=== PATIENT | male | born 1940 | race Caucasian/White ===

== ENCOUNTER → 2019-03-30 08:53 | Outpatient (CLI) | payer MEDICARE, OTHER, SELFPAY ==
--- NOTE | 2019-03-30 | DI.US.S_ITS ---
PROCEDURE: US RETROPERITONEAL COMP INDICATIONS: AORTIC ANEURYSM TECHNIQUE: Real-time scanning was performed of the retroperitoneal organs, with image documentation. COMPARISON: [facility], RG, CT ANGIO RUNOFF ABD START, 11/24/2016, 10:13. FINDINGS: Aorta: Proximal aorta measures 2.2 cm, mid aorta 1.9 cm and the distal aorta 4.3 x 4.5 cm. Moderate amount intraluminal thrombus present. Iliac arteries: Well-visualized. IMPRESSION: 4.3 x 4.5 cm distal abdominal aortic aneurysm which appears similar to prior CT scan dated 11/24/16. Dictated by: Franko Cabrera [facility] Interpreted: Aditya James MD on 03/30/2019 at 14:06 Approved by: Aditya James M.D. on 04/02/2019 at 13:34
== END ==
PROVIDERS: PCP Family Medicine; Visit Provider Family Medicine
DX: I71.9 Aortic aneurysm of unspecified site, without rupture (principal)
CPT/HCPCS: 76770

== ENCOUNTER → 2019-09-24 13:26 | Outpatient (CLI) | payer MEDICARE, OTHER, SELFPAY ==
--- NOTE | 2019-09-24 | DI.US.S_ITS ---
PROCEDURE: US RETRO PERITONEAL LIMITED INDICATIONS: ANEURYSM OF ILIAC ARTERY TECHNIQUE: Real-time scanning was performed of the retroperitoneal organs, with image documentation. COMPARISON: [facility], , US RETROPERITONEAL COMP, 03/30/2019, 9:14. [facility], RG, CT ANGIO RUNOFF ABD START, 11/24/2016, 10:13. [facility], US, ARTERIAL LOW.EXTREM.BILATERAL, 10/20/2016, 9:05. [facility], , PERIPH.ONEAL EXT BILAT, 10/18/2016, 12:17. FINDINGS: The imaged proximal abdominal aorta measures 1.7 x 2.0 cm. The imaged mid abdominal aorta measures 2.2 x 2.2 cm. The imaged distal abdominal aorta measures approximately 4.5 x 4.1 cm. The outer lumen of the imaged distal abdominal aorta measures 4.5 x 4.1 cm (previously 4.5 x 4.3 cm on comparison exam of 03/30/19) while the inner lumen of the imaged distal abdominal aorta measures approximately 2.3 x 2.2 cm. The left proximal common iliac artery measures approximately 0.8 cm in greatest diameter. The right proximal common iliac artery cannot be visualized on this exam and appears obscured by overlying bowel gas. Within the mid-right kidney there is a 4.5 x 4.0 x 4.4 cm oval circumscribed hypodense cyst with posterior acoustic enhancement, low level internal echogenic foci, no vascularity on Doppler imaging. IMPRESSION: 1. Redemonstrated distal abdominal aortic aneurysm measuring 4.5 x 4.1 cm, containing findings suggestive of intramural thrombus/wall thickening. 2. 4.5 cm probable complicated cyst within the right kidney. A followup targeted ultrasound in 3-6 months to demonstrate stability is recommended. Dictated by: Sarkis Vazquez M.D. on 09/24/2019 at 15:19 Approved by: Sarkis Vazquez M.D. on 09/24/2019 at 15:39
== END ==
PROVIDERS: PCP Family Medicine; Visit Provider Physician Assistant
DX: I71.4 Abdominal aortic aneurysm, without rupture (principal)
CPT/HCPCS: 76775

== ENCOUNTER 2020-07-10 13:28 | Emergency (ER) | payer MEDICARE, OTHER, SELFPAY ==
[2020-07-10] VITALS (9 sets, daily range): BP systolic 103–121; BP diastolic 53–59; PULSE 52–72; RESP 14–24; TEMP 36.7; O2SAT 97–100; BMI 29.2
--- NOTE | 2020-07-10 13:46 | DI.RAD.S_ITS ---
PROCEDURE: XR CHEST 1V INDICATIONS: chest pain COPDv/Pneumonia v/cardiac TECHNIQUE: One view of the chest was acquired. COMPARISON: [facility], RG, CT ANGIO RUNOFF ABD START, 11/24/2016, 10:13. FINDINGS: Surgical changes and devices: None. Lungs and pleura: Lungs are clear. No pleural effusions or pneumothorax. Mediastinum: Mediastinal contours appear normal. Heart size is normal. Bones and chest wall: Age indeterminate right posterior 9th rib fracture is seen. Overlying soft tissues appear unremarkable. IMPRESSION: No acute cardiopulmonary pathology. Age indeterminate right posterior 9th rib fracture. Dictated by: Justin Salvador M.D. on 07/10/2020 at 14:16 Approved by: Justin Salvador M.D. on 07/10/2020 at 14:25
--- NOTE | 2020-07-10 13:51 | ED.CHESTPAIN ---
HPI - Chest Pain <Kristen Gatse PA-C - Last Filed: 07/11/20 11:14> General Chief Complaint: Chest Pain Stated Complaint: chest pain Time Seen by Provider: 07/10/20 13:36 Source: patient Mode of arrival: EMS Limitations: other (Dementia) History of Present Illness HPI narrative: This is 72-year-old gentleman with a history of hypertension, COPD and dementia who lives with his daughter, brought in by EMS after his daughter was concerned because he reported some chest pain this morning, per EMS he also had some shortness of breath he is on home oxygen normally at all times, he received Solu-Medrol 125 and a DuoNeb inhaler treatment and his breathing improved by EMS, per EMS report daughter noted that he may be slightly more confused than usual today. On presentation to the emergency department he is well-appearing, he states that he has a little bit of chest pain on the front left side of his chest and he notes that ?if you push on it it seems like it gets worse?. He also does state that he felt a little bit more generally weak than usual this morning. Patient is a poor historian, he reports no recent shortness of breath no recent changes to his health. He currently smokes 3 or 4 cigarettes a day at maximum. Denies fever, chills, cough, abdominal pain, diarrhea, nausea, vomiting, ongoing chest pain, dysuria, one sided weakness, headache, dizziness recent falls or any other symptoms. MD complaint: chest pain (And shortness of breath per EMS) Onset (ago): hour(s) (4) Duration: improved (No active shortness of breath, very mild chest pain currently) Pain location: left chest Severity: mild Severity scale (1-10): 2 Quality: aching Pain radiation: none Relieving factors: nothing Exacerbating factors: nothing Context: other (COPD) Associated symptoms: dyspnea (Now improved) Treatments prior to arrival chest pain: oxygen and other (Solu-Medrol, DuoNeb inhaler) Related Data Home Medications Medication Instructions Recorded Confirmed albuterol sulfate 2 puff INHALATION Q4-6H PRN 07/10/20 07/10/20 albuterol sulfate 2.5 mg INHALATION Q6H 07/10/20 07/10/20 aspirin 325 mg PO DAILY 07/10/20 07/10/20 atorvastatin 10 mg PO BEDTIME 07/10/20 07/10/20 diltiazem HCl [Cardizem CD] 180 mg PO DAILY 07/10/20 07/10/20 fluticasone propion-salmeterol 1 inh INHALATION BID 07/10/20 07/10/20 [Advair Diskus] ipratropium-albuterol [Combivent 1 puff INHALATION QID 07/10/20 07/10/20 Respimat] lisinopril 20 mg PO DAILY 07/10/20 07/10/20 prednisone 1 mg PO BID 07/10/20 07/10/20 Previous Rx's Medication Instructions Recorded cefpodoxime 100 mg PO BID #14 tab 07/10/20 prednisone 20 mg PO BID #10 tab 07/10/20 Allergies Allergy/AdvReac Type Severity Reaction Status Date / Time No Known Drug Allergies Allergy Verified 07/10/20 17:13 Review of Systems <Kristen Gates PA-C - Last Filed: 07/11/20 11:14> Review of Systems Narrative: GENERAL: Denies chills, fatigue, malaise, fever, sweats. HEENT: Denies sinus pain, ear pain, sore throat, difficulty swallowing, dizziness. RESPIRATORY: Denies dyspnea, cough, wheezing, hemoptysis, sputum. CARDIOVASCULAR: positive for chest pain (when he presses on it), negative for palpitations, orthopnea, edema, GASTROINTESTINAL: Denies nausea, vomiting, abdominal pain, diarrhea, constipation, melena. : Denies dysuria, frequency, incontinence, hematuria, urinary retention. MUSCULOSKELETAL: Positive for increased generalized weakness today negative for joint pain, or bony pain SKIN: Denies rash, skin lesions, or other NEUROLOGIC: Denies weakness, headache, numbness, change in speech, confusion, seizures, incoordination. PSYCHIATRIC: Patient has dementia No concerning psychosocial issues. 12 point review of systems is negative except for those stated above ROS Unobtainable: All systems reviewed & are unremarkable except as noted in HPI and below and Other (Patient has dementia, unkown if answers re: recent health accurate) Patient History <Kristen Gates PA-C - Last Filed: 07/11/20 11:14> Social History Smoking Status: Current every day smoker Exam <Kristen Gates PA-C - Last Filed: 07/11/20 11:14> Narrative Exam Narrative: GENERAL: 80 year old patient appears stated age. Well-nourished, well-developed patient, in mild distress. Patient is able to answer questions appropriately, no confusion/disorientation noted. HEAD: Atraumatic. Normocephalic. EYES: Pupils equal round and reactive. Extraocular motions intact. No scleral icterus. No injection or drainage. ENT: Nose without bleeding, purulent drainage. Throat without erythema, tonsillar hypertrophy or exudate. Airway patent. NECK: Trachea midline. Non tender CARDIOVASCULAR: Distant heart tones, Regular rate and rhythm without murmurs, gallops, or rubs. Patient exhibits very slight tenderness with palpation over his chest left mid clavicular approximately over rib 9/10--no deformity noted RESPIRATORY: There is mild wheezing all yao more prominent upper inspiratory and expiratory most notable expiratory. Breath sounds equal bilaterally. No rales, or rhonchi. GASTROINTESTINAL: Abdomen soft, non-tender, protuberant, nondistended. EXTREMITIES: No edema or joint tenderness. Distal pulses are strong and equal bilaterally BACK: Nontender without deformity or crepitance. No flank tenderness. NEURO: AOx3. SKIN: No rash or erythema of visible areas Initial Vital Signs Initial Vital Signs: Vital Signs Temperature 98.1 F 07/10/20 13:44 Pulse Rate 72 07/10/20 13:44 Respiratory Rate 14 07/10/20 13:44 Blood Pressure 121/59 L 07/10/20 13:44 Pulse Oximetry 97 07/10/20 13:44 <Delvis Mora DO - Last Filed: 07/11/20 11:41> Initial Vital Signs Initial Vital Signs: Vital Signs Temperature 98.1 F 07/10/20 13:44 Pulse Rate 72 07/10/20 13:44 Respiratory Rate 14 07/10/20 13:44 Blood Pressure 121/59 L 07/10/20 13:44 Pulse Oximetry 97 07/10/20 13:44 Scores <Kristen Gates PA-C - Last Filed: 07/11/20 11:14> GCS Outlook coma scale eye opening: Spontaneous Cristopher coma scale verbal response: Orientated Cristopher coma scale motor response: Obey commands Cristopher coma scale total score: 15 Course <Kristen Gates PA-C - Last Filed: 07/11/20 11:14> Course Course Narrative: Labs thus far are returning unremarkable, x-ray does show an age-indeterminate right 9th rib fracture, however this is not in the area of the patient's chest discomfort. Awaiting urine. 14:54 Patient does appear to have a UTI which would likely explain his feeling a little more weak recently today and his daughter's report of being a little bit more confused than usual. Attempting to find the daughter to discuss his symptoms with her. 15:09 Spoke with the daughter of the patient about his recent symptoms and what she saw today before he was brought in by ambulance. She notes this morning he slept in past 8:30 which is unusual for him and concerning in her mind. She had to leave for a while and came back around 1:00 pm. this afternoon when she walked in the door she says that he looked more pale than usual and he was sitting upright and wheezing. He seemed a little bit confused when he tried to tell her that he felt he was having some chest discomfort alternating between saying he was and he was not. She notes that his wheezing is something that he frequently has after he has smoked a cigarette, she feels that this was somewhat similar to that or as if he had been off of his oxygen for a little bit or been walking around, she does not think he has had any worsening problems with shortness of breath in the last few days has not complained of any chest pain or other symptoms in the last few days. She notes he has had COPD for some time, still smokes she says up to 8 cigarettes a day although she has him on lights. He does not have a survey engineer that he sees she is happy to bring him in for primary care follow-up and she is actually planning to work on changing his PCP. The patient continues to be pain free, in no respiratory distress, patient states that he feels very well and has no concerns, daughter is in agreement that he is his normal self. Plan to discharge with referral for pulmonology for better assessment of his COPD will also discharge with a 5 day course of steroid medication as I think it is likely he had a COPD exacerbation. I do not think that he warrants antibiotics. 15:45 Orders Ordered: Discontinued Medications Cefdinir (Omnicef) 300 mg PO NOW ONE Stop: 10/08/20 17:04 Last Admin: 07/10/20 17:14 Dose: 300 mg Documented by: JESS Prednisone (Deltasone) 20 mg PO NOW ONE Stop: 07/10/20 17:08 Last Admin: 07/10/20 17:14 Dose: 20 mg Documented by: JESS Vital Signs Vital signs: Vital Signs - 8 hr 07/10/20 15:30 07/10/20 16:00 07/10/20 16:30 Pulse Rate 54 L 55 L 55 L Respiratory Rate 21 17 Blood Pressure 114/59 L 108/53 L 111/55 L Pulse Oximetry 99 99 99 <Delvis Mora DO - Last Filed: 07/11/20 11:41> Orders Ordered: Discontinued Medications Cefdinir (Omnicef) 300 mg PO NOW ONE Stop: 07/10/20 17:04 Last Admin: 07/10/20 17:14 Dose: 300 mg Documented by: JESS Prednisone (Deltasone) 20 mg PO NOW ONE Stop: 07/10/20 17:08 Last Admin: 07/10/20 17:14 Dose: 20 mg Documented by: JESS Vital Signs Vital signs: Vital Signs - 8 hr 07/10/20 15:30 07/10/20 16:00 07/10/20 16:30 Pulse Rate 54 L 55 L 55 L Respiratory Rate 21 17 Blood Pressure 114/59 L 108/53 L 111/55 L Pulse Oximetry 99 99 99 MDM - Chest Pain <Kristen Gates PA-C - Last Filed: 07/11/20 11:14> Differential Diagnosis Differential diagnosis: Likely chest pain and other (Reproducible chest pain, COPD, UTI) Medical Records Data Attestation: I reviewed the patient's medical records. Lab Data Attestation: I reviewed the patient's lab results. Result diagrams: 07/10/20 14:04 07/10/20 14:04 Labs: Lab Results 07/10/20 07/10/20 07/10/20 Range/Units 14:04 14:04 14:04 WBC 6.9 (4.5-11.0) X10^3/uL RBC 3.65 L (4.5-5.9) X10^6/uL Hgb 11.1 L (13.5-17.5) g/dL Hct 34.4 L (41-53) % MCV 94.3 (80-100) fL MCH 30.3 (26-34) PG MCHC 32.2 (30-36) % RDW 15.4 H (11.6-14.8) % Plt Count 267 (150-400) X10^3/uL Neut % (Auto) 72.6 (50-75) % Lymph % (Auto) 17.6 L (25-40) % [place] % (Auto) 7.2 (3-14) % Eos % (Auto) 1.7 L (2-4) % Baso % (Auto) 0.9 (0-2) % Neut # (Auto) 5000 (4895-1933) /uL Lymph # (Auto) 1200 (3351-0096) /uL [place] # (Auto) 500 (0-900) /uL Eos # (Auto) 100 (0-450) /uL Baso # (Auto) 100 (0-100) /uL Sodium 140 (137-145) mmol/L Potassium 5.2 H (3.4-5.1) mmol/L Chloride 107 (98-107) mmol/L Carbon Dioxide 28 (22-32) mmol/L BUN 16 (9-20) mg/dL Creatinine 1.02 (0.66-1.25) mg/dL Estimated GFR > 60.0 (>60) mL/min BUN/Creatinine Ratio 15.7 (6-22) Glucose 88 (80-110) mg/dL Calcium 8.6 (8.4-10.2) mg/dL Total Bilirubin 0.4 (0.2-1.3) mg/dL AST 18 (17-59) IU/L ALT 11 (<50) IU/L Alkaline Phosphatase 88 (38-126) U/L Total Creatine Kinase 85 (55-170) U/L CK-MB (CK-2) TNP CK-MB (CK-2) Rel Index TNP Troponin I < 0.012 (0.01-0.034) ng/mL NT-Pro-B Natriuret Pep 143 (<450) pg/mL Total Protein 6.7 (6.3-8.2) g/dL Albumin 3.7 (3.5-5.0) g/dL Globulin 3.0 (1.7-4.1) g/dL Albumin/Globulin Ratio 1.2 (1.0-2.8) Lipase 83 (23-300) U/L Procalcitonin 0.05 (<0.5) ng/mL Urine Color Urine Appearance Urine pH (4.5-8.0) Ur Specific [place] (1.000-1.035) Urine Protein (Negative) Urine Glucose (UA) (Negative) g/dL Urine Ketones (NEGATIVE) Urine Occult Blood (Negative) Urine Nitrate (Negative) Urine Bilirubin (NEGATIVE) Urine Urobilinogen (0.2) E.U./dL Ur Leukocyte Esterase (NEGATIVE) Urine RBC (0-5/HPF) Urine WBC (0-5/HPF) Ur Squamous Epith Cells (0-5/HPF) Amorphous Sediment Urine Bacteria (None) Urine Mucus (Negative) Ur Culture Indicated? COVID-19 PCR (Negative) 07/10/20 07/10/20 Range/Units 14:10 14:45 WBC (4.5-11.0) X10^3/uL RBC (4.5-5.9) X10^6/uL Hgb (13.5-17.5) g/dL Hct (41-53) % MCV (80-100) fL MCH (26-34) PG MCHC (30-36) % RDW (11.6-14.8) % Plt Count (150-400) X10^3/uL Neut % (Auto) (50-75) % Lymph % (Auto) (25-40) % [place] % (Auto) (3-14) % Eos % (Auto) (2-4) % Baso % (Auto) (0-2) % Neut # (Auto) (2600-3293) /uL Lymph # (Auto) (8000-1226) /uL [place] # (Auto) (0-900) /uL Eos # (Auto) (0-450) /uL Baso # (Auto) (0-100) /uL Sodium (137-145) mmol/L Potassium (3.4-5.1) mmol/L Chloride (98-107) mmol/L Carbon Dioxide (22-32) mmol/L BUN (9-20) mg/dL Creatinine (0.66-1.25) mg/dL Estimated GFR (>60) mL/min BUN/Creatinine Ratio (6-22) Glucose (80-110) mg/dL Calcium (8.4-10.2) mg/dL Total Bilirubin (0.2-1.3) mg/dL AST (17-59) IU/L ALT (<50) IU/L Alkaline Phosphatase (38-126) U/L Total Creatine Kinase (55-170) U/L CK-MB (CK-2) CK-MB (CK-2) Rel Index Troponin I (0.01-0.034) ng/mL NT-Pro-B Natriuret Pep (<450) pg/mL Total Protein (6.3-8.2) g/dL Albumin (3.5-5.0) g/dL Globulin (1.7-4.1) g/dL Albumin/Globulin Ratio (1.0-2.8) Lipase (23-300) U/L Procalcitonin (<0.5) ng/mL Urine Color Yellow Urine Appearance Sl cloudy Urine pH 6.0 (4.5-8.0) Ur Specific [place] <=1.005 (1.000-1.035) Urine Protein Negative (Negative) Urine Glucose (UA) Negative (Negative) g/dL Urine Ketones Negative (NEGATIVE) Urine Occult Blood Trace-lysed (Negative) Urine Nitrate Negative (Negative) Urine Bilirubin Negative (NEGATIVE) Urine Urobilinogen 0.2 (0.2) E.U./dL Ur Leukocyte Esterase 3+ H (NEGATIVE) Urine RBC 0-1/hpf (0-5/HPF) Urine WBC 30-100/hpf H (0-5/HPF) Ur Squamous Epith Cells 0-1 /hpf (0-5/HPF) Amorphous Sediment 1+ Urine Bacteria Many (>30) H (None) Urine Mucus 1+ H (Negative) Ur Culture Indicated? Specimen cultured COVID-19 PCR Negative (Negative) Imaging Data Chest x-ray: Attestation: I personally reviewed and interpreted this imaging study as follows: Radiologist's Impression: [address] [address] XRay Report Signed Patient: Ramon Mosquera EMR#: [id number] : 2Acct:[id number] Age/Sex: 80 / MDate of Service: 07/10/20 Loc: ED Accession Number: [id number] Procedure: XR chest 1V Ordering Provider: Kristen Gates P.A-C PROCEDURE: XR CHEST 1V INDICATIONS: chest pain COPDv/Pneumonia v/cardiac TECHNIQUE: One view of the chest was acquired. COMPARISON: [facility], RG, CT ANGIO RUNOFF ABD START, 11/24/2016, 10:13. FINDINGS: Surgical changes and devices: None. Lungs and pleura: Lungs are clear. No pleural effusions or pneumothorax. Mediastinum: Mediastinal contours appear normal. Heart size is normal. Bones and chest wall: Age indeterminate right posterior 9th rib fracture is seen. Overlying soft tissues appear unremarkable. IMPRESSION: No acute cardiopulmonary pathology. Age indeterminate right posterior 9th rib fracture. Dictated by: Justin Salvador M.D. on 07/10/2020 at 14:16 Approved by: Justin Salvador M.D. on 07/10/2020 at 14:25 ECG Data Attestation: I personally reviewed and interpreted this ECG as follows: (EKG also reviewed by Dr. Mora) Prior ECG tracings: not available for review Interpretation: Sinus bradycardia with premature supraventricular earlier complexes, ventricular rate 59, p.r. interval 148 QRS 78 QT 394 P axis 77 are axis 34 T axis 55 Core Measures Measure exclusions: not indicated MDM Narrative Medical decision making narrative: This is a well-appearing 80-year-old gentleman with a history of COPD, dementia, hypertension who presents to the emergency department brought in by ambulance after his daughter found him complaining of possible chest pain and wheezing. Patient received Solu-Medrol and DuoNeb in the ambulance and by the time of arrival was in no respiratory distress. Patient is on chronic home O2 at 5 L. does not have a survey engineer, COPD is managed by his PCP. Is unclear to what degree the patient's respiratory distress that happened at home today was his ?normal? versus a possible manifestation of exacerbation of his COPD given that daughter felt his wheezing was similar to his normal after a cigarette or a walk. Labs returned largely unremarkable with exception of urinary tract infection present, did have a very slightly elevated potassium level--not warranting treatment with medication. Patient had a reproducible chest pain in the left lateral low chest. Possible that he has a muscle strain. Emergency return precautions provided, all questions answered. <Delvis Mora, DO - Last Filed: 07/11/20 11:41> Lab Data Labs: Lab Results 07/10/20 07/10/20 07/10/20 Range/Units 14:04 14:04 14:04 WBC 6.9 (4.5-11.0) X10^3/uL RBC 3.65 L (4.5-5.9) X10^6/uL Hgb 11.1 L (13.5-17.5) g/dL Hct 34.4 L (41-53) % MCV 94.3 (80-100) fL MCH 30.3 (26-34) PG MCHC 32.2 (30-36) % RDW 15.4 H (11.6-14.8) % Plt Count 267 (150-400) X10^3/uL Neut % (Auto) 72.6 (50-75) % Lymph % (Auto) 17.6 L (25-40) % [place] % (Auto) 7.2 (3-14) % Eos % (Auto) 1.7 L (2-4) % Baso % (Auto) 0.9 (0-2) % Neut # (Auto) 5000 (4691-8499) /uL Lymph # (Auto) 1200 (5400-6731) /uL [place] # (Auto) 500 (0-900) /uL Eos # (Auto) 100 (0-450) /uL Baso # (Auto) 100 (0-100) /uL Sodium 140 (137-145) mmol/L Potassium 5.2 H (3.4-5.1) mmol/L Chloride 107 (98-107) mmol/L Carbon Dioxide 28 (22-32) mmol/L BUN 16 (9-20) mg/dL Creatinine 1.02 (0.66-1.25) mg/dL Estimated GFR > 60.0 (>60) mL/min BUN/Creatinine Ratio 15.7 (6-22) Glucose 88 (80-110) mg/dL Calcium 8.6 (8.4-10.2) mg/dL Total Bilirubin 0.4 (0.2-1.3) mg/dL AST 18 (17-59) IU/L ALT 11 (<50) IU/L Alkaline Phosphatase 88 (38-126) U/L Total Creatine Kinase 85 (55-170) U/L CK-MB (CK-2) TNP CK-MB (CK-2) Rel Index TNP Troponin I < 0.012 (0.01-0.034) ng/mL NT-Pro-B Natriuret Pep 143 (<450) pg/mL Total Protein 6.7 (6.3-8.2) g/dL Albumin 3.7 (3.5-5.0) g/dL Globulin 3.0 (1.7-4.1) g/dL Albumin/Globulin Ratio 1.2 (1.0-2.8) Lipase 83 (23-300) U/L Procalcitonin 0.05 (<0.5) ng/mL Urine Color Urine Appearance Urine pH (4.5-8.0) Ur Specific [place] (1.000-1.035) Urine Protein (Negative) Urine Glucose (UA) (Negative) g/dL Urine Ketones (NEGATIVE) Urine Occult Blood (Negative) Urine Nitrate (Negative) Urine Bilirubin (NEGATIVE) Urine Urobilinogen (0.2) E.U./dL Ur Leukocyte Esterase (NEGATIVE) Urine RBC (0-5/HPF) Urine WBC (0-5/HPF) Ur Squamous Epith Cells (0-5/HPF) Amorphous Sediment Urine Bacteria (None) Urine Mucus (Negative) Ur Culture Indicated? COVID-19 PCR (Negative) 07/10/20 07/10/20 Range/Units 14:10 14:45 WBC (4.5-11.0) X10^3/uL RBC (4.5-5.9) X10^6/uL Hgb (13.5-17.5) g/dL Hct (41-53) % MCV (80-100) fL MCH (26-34) PG MCHC (30-36) % RDW (11.6-14.8) % Plt Count (150-400) X10^3/uL Neut % (Auto) (50-75) % Lymph % (Auto) (25-40) % [place] % (Auto) (3-14) % Eos % (Auto) (2-4) % Baso % (Auto) (0-2) % Neut # (Auto) (5819-4297) /uL Lymph # (Auto) (5713-1428) /uL [place] # (Auto) (0-900) /uL Eos # (Auto) (0-450) /uL Baso # (Auto) (0-100) /uL Sodium (137-145) mmol/L Potassium (3.4-5.1) mmol/L Chloride (98-107) mmol/L Carbon Dioxide (22-32) mmol/L BUN (9-20) mg/dL Creatinine (0.66-1.25) mg/dL Estimated GFR (>60) mL/min BUN/Creatinine Ratio (6-22) Glucose (80-110) mg/dL Calcium (8.4-10.2) mg/dL Total Bilirubin (0.2-1.3) mg/dL AST (17-59) IU/L ALT (<50) IU/L Alkaline Phosphatase (38-126) U/L Total Creatine Kinase (55-170) U/L CK-MB (CK-2) CK-MB (CK-2) Rel Index Troponin I (0.01-0.034) ng/mL NT-Pro-B Natriuret Pep (<450) pg/mL Total Protein (6.3-8.2) g/dL Albumin (3.5-5.0) g/dL Globulin (1.7-4.1) g/dL Albumin/Globulin Ratio (1.0-2.8) Lipase (23-300) U/L Procalcitonin (<0.5) ng/mL Urine Color Yellow Urine Appearance Sl cloudy Urine pH 6.0 (4.5-8.0) Ur Specific [place] <=1.005 (1.000-1.035) Urine Protein Negative (Negative) Urine Glucose (UA) Negative (Negative) g/dL Urine Ketones Negative (NEGATIVE) Urine Occult Blood Trace-lysed (Negative) Urine Nitrate Negative (Negative) Urine Bilirubin Negative (NEGATIVE) Urine Urobilinogen 0.2 (0.2) E.U./dL Ur Leukocyte Esterase 3+ H (NEGATIVE) Urine RBC 0-1/hpf (0-5/HPF) Urine WBC 30-100/hpf H (0-5/HPF) Ur Squamous Epith Cells 0-1 /hpf (0-5/HPF) Amorphous Sediment 1+ Urine Bacteria Many (>30) H (None) Urine Mucus 1+ H (Negative) Ur Culture Indicated? Specimen cultured COVID-19 PCR Negative (Negative) Discharge Plan Departure Patient Disposition: Home Clinical Impression: Acute UTI COPD (chronic obstructive pulmonary disease) Qualifiers: COPD type: unspecified COPD Qualified Code(s): J44.9 - Chronic obstructive pulmonary disease, unspecified Discharge Date/Time: 07/10/20 17:19 Instructions: DI for Chronic Obstructive Pulmonary Disease, DI for Urinary Tract Infection (UTI) Activity Restrictions/Additional Instructions: Thank you for letting us be part of your care in the emergency department today. While it is a little unclear what happened today dry your episode I do think that you are dealing with an exacerbation of your COPD because her symptoms of wheezing and shortness of breath were relieved with the treatment you received by the medics, I do want you to take an increased dose of steroids for the next 5 days, I prescribed prednisone for you please do not take your regular daily low-dose prednisone instead take the prescription he received today for the next 5 days then go back to taking your normal prednisone. Is very important that you follow-up with your primary care provider in the next 2 days, and I would ask them for a referral to see a survey engineer so the you can have additional studies done as needed to better characterize your COPD and make sure that you are getting the most optimal treatment. Please continue to take your regular COPD inhalers as usual and all your other medications as usual. We did discuss referral to survey engineer, however referrals are best place by primary care providers and most likely to be excepted if placed by his PCP. So I have not made a referral today but I would ask your primary care about this. He also have a urinary tract infection and this needs to be treated with antibiotics, I have provided a prescription for this as well, please monitor your symptoms if you do develop fevers chills flank pain nausea vomiting diarrhea, worsening shortness of breath compared to your normal, new chest pain or any other symptoms of concern to you please do not hesitate to seek medical care or return to the emergency department. Prescriptions: New prednisone 20 mg tablet 20 mg PO BID Qty: 10 RF: 0 cefpodoxime 100 mg tablet 100 mg PO BID Qty: 14 RF: 0 No Action atorvastatin 10 mg Tablet 10 mg PO BEDTIME RF: 0 aspirin 325 mg Tablet 325 mg PO DAILY RF: 0 diltiazem HCl [Cardizem CD] 180 mg Capsule,Extended Release 24hr 180 mg PO DAILY RF: 0 lisinopril 20 mg Tablet 20 mg PO DAILY RF: 0 prednisone 1 mg Tablet 1 mg PO BID RF: 0 albuterol sulfate 90 mcg/actuation Hfa Aerosol Inhaler 2 puff INHALATION Q4-6H PRN (Reason: Shortness Of Breath) RF: 0 albuterol sulfate 2.5 mg /3 mL (0.083 %) Solution For Nebulization 2.5 mg INHALATION Q6H RF: 0 fluticasone propion-salmeterol [Advair Diskus] 500-50 mcg/dose Blister With Device 1 inh INHALATION BID RF: 0 Combivent Respimat 20-100 mcg/actuation Mist 1 puff INHALATION QID RF: 0 Referrals: Marisa Cerna DO [Primary Care Provider] - <Delvis Mora DO - Last Filed: 07/11/20 11:41> Cosign ED Attending Cosignature Attestation: Dr Mora Co-Sign Statement: I was available for consultation during this patient's emergency department visit. This chart is signed by myself for administrative purposes only. I did not have direct contact with this patient during this visit. They were seen independently by the APC.
[2020-07-10 14:10] LABS: Add Manual Diff / Slide Review NO; Basophils Absolute Auto 100 /uL (0-100); Basophils Percent Auto 0.9 % (0-2); Eosinophils Absolute Auto 100 /uL (0-450); Eosinophils Percent Auto 1.7 % (2-4); Hematocrit 34.4 % (41-53); Hemoglobin 11.1 g/dL (13.5-17.5); Lymphocytes Absolute Auto 1200 /uL (1100-4500); Lymphocytes Percent Auto 17.6 % (25-40); Mean Corpuscular HGB Conc 32.2 % (30-36); Mean Corpuscular Hemoglobin 30.3 PG (26-34); Mean Corpuscular Volume 94.3 fL (80-100); Monocytes Absolute Auto 500 /uL (0-900); Monocytes Percent Auto 7.2 % (3-14); Neutrophils Absolute Auto 5000 /uL (1500-7000); Neutrophils Percent Auto 72.6 % (50-75); Platelet Count 267 X10^3/uL (150-400); Red Blood Cell Count 3.65 X10^6/uL (4.5-5.9); Red Cell Distribution Width 15.4 % (11.6-14.8); White Blood Cell Count 6.9 X10^3/uL (4.5-11.0)
[2020-07-10 14:25] LABS: Alanine Aminotransferase 11 IU/L (<50); Albumin 3.7 g/dL (3.5-5.0); Albumin Globulin Ratio 1.2 (1.0-2.8); Alkaline Phosphatase 88 U/L (38-126); Aspartate Aminotransferase 18 IU/L (17-59); BUN Creatinine Ratio 15.7 (6-22); Bilirubin Total 0.4 mg/dL (0.2-1.3); Blood Urea Nitrogen 16 mg/dL (9-20); Calcium 8.6 mg/dL (8.4-10.2); Carbon Dioxide 28 mmol/L (22-32); Chloride 107 mmol/L (98-107); Creatine Kinase 85 U/L (55-170); Estimated Glomerular Filt Rate > 60.0 mL/min (>60); Glucose 88 mg/dL (80-110); HEMOLYSIS < 15 (0-50); Lipase 83 U/L (23-300); Potassium 5.2 mmol/L (3.4-5.1); Sodium 140 mmol/L (137-145); Total Protein 6.7 g/dL (6.3-8.2)
[2020-07-10 14:29] LABS: COVID19 -Nasal RAPID Negative (Negative)
[2020-07-10 14:36] LABS: NT-proBNP (BNP-Adult 18+) 143 pg/mL (<450); Troponin I < 0.012 ng/mL (0.01-0.034)
[2020-07-10 14:41] LABS: Procalcitonin 0.05 ng/mL (<0.5)
[2020-07-10 14:54] LABS: Appearance Urine UA SL CLOUDY; Bilirubin Urine UA NEGATIVE (NEGATIVE); Color Urine UA YELLOW; Glucose Urine UA NEGATIVE (Negative); Ketones Urine UA NEGATIVE (NEGATIVE); Leukocyte Esterase Urine UA 3+ (NEGATIVE); Nitrite Urine UA NEGATIVE (Negative); Occult Blood Urine UA TRACE-LYSED (Negative); Protein Urine UA NEGATIVE (Negative); Specific Gravity Urine UA <=1.005 (1.000-1.035); Urobilinogen Urine UA 0.2 E.U./dL (0.2)
[2020-07-10 15:01] LABS: RBC Urine 0-1/HPF (0-5/HPF); WBC Urine 30-100/HPF (0-5/HPF)
[2020-07-10 15:02] LABS: Amorphous Sediment Urine 1+; Bacteria Urine Many (>30); Culture Indicated Urine Specimen Cultured; Mucus Urine 1+ (Negative); Squamous Epithelial Cell Urine 0-1 /HPF (0-5/HPF)
[2020-07-10] MEDS: CEFDINIR 300 MG CAPSULE PO (17:14)
[2020-07-10] MEDS: predniSONE 20 MG TABLET PO (17:14)
== END 2020-07-10 17:19 | disposition home or self-care (01) ==
PROVIDERS: Emergency Provider Student in an Organized Health Care Education/Training Program; PCP Family Medicine
DX: N39.0 Urinary tract infection, site not specified (principal); J44.9 Chronic obstructive pulmonary disease, unspecified; I10 Essential (primary) hypertension; R07.9 Chest pain, unspecified
CPT/HCPCS: 36415; 71045; 80053; 81001; 82550; 83690; 83880; 84145; 84484; 85025; 87077; 87086; 87635; 93005; 99284

== ENCOUNTER → 2020-11-18 17:21 | Outpatient (CLI) | payer MEDICARE, OTHER, SELFPAY ==
--- NOTE | 2020-11-18 17:22 | DI.RAD.S_ITS ---
PROCEDURE: XR CHEST 2V INDICATIONS: Cough TECHNIQUE: 2 views of the chest were acquired. COMPARISON: [facility], CR, XR CHEST 1V, 07/10/2020, 13:56. FINDINGS: Surgical changes and devices: None. Lungs and pleura: Lungs are clear. No pleural effusions or pneumothorax. Lungs hyperinflated suggesting COPD. Mediastinum: Mediastinal contours are normal. Heart size is normal. Bones and chest wall: Chronic right 9th rib fracture is stable. No suspicious bony abnormalities. Soft tissues appear unremarkable. IMPRESSION: No acute cardiopulmonary disease process. Dictated by: Ranjana Cristobal MD, PhD on 11/19/2020 at 17:16 Approved by: Ranjana Cristobal MD, PhD on 11/19/2020 at 17:17
== END ==
PROVIDERS: PCP Family Medicine; Referring Provider Family Medicine; Visit Provider Family Medicine
DX: R05 Cough (principal)
CPT/HCPCS: 71046

== ENCOUNTER 2021-01-08 17:18 | Inpatient (IN) | payer MEDICARE, OTHER, SELFPAY ==
[2021-01-08] VITALS (11 sets, daily range): BP systolic 118–139; BP diastolic 73–82; PULSE 85–121; RESP 20–30; TEMP 36.9; O2SAT 96–100; BMI 26.4; BMI 24.7
--- NOTE | 2021-01-08 | DI.ECHO.S_ITS ---
[place] +---------+ : : [address] : [address] : [place] : : : : [id number] : : : : Phone: [phone] Echocardiogram Report + + :Name: NOY LORENZ Study Date: 01/09/2021 Height: 68 in : :[facility] ReadingLocation: Weight: 174 lb : : Gender: Male BSA: 1.9 m2 : :: 1940 Age: 80 yrs BP: 137/65 mmHg: :Reason For Study: Atrial fibrillation : :Ordering Physician: RADHA, : :AMAIRANI Performed By: Kavon Epps : :Referring: AMAIRANI GARCIA : + + Interpretation Summary The ejection fraction is estimated to be 60-65%. There is mild tricuspid regurgitation. The right ventricular systolic pressure is estimated to be at least 27 mmHg based on an estimated right atrial pressure of 3 mm Hg. Procedure: The study quality was technically adequate. A two-dimensional transthoracic echocardiogram with color flow and Doppler was performed. There is no prior echocardiogram noted for this patient. The patient was in atrial fibrillation with heart rates between 92-115 bpm during the exam. Left Ventricle: The left ventricle is normal in size and wall thickness. Left ventricular systolic function is normal. The ejection fraction is estimated to be 60-65%. There are no focal wall motion abnormalities. Diastolic function could not be accurately assessed due to atrial fibrillation. Right Ventricle: The right ventricle is normal in size and function. Atria: Both atria are normal in size. There is no Doppler evidence for an interatrial shunt. Mitral Valve: There is mild mitral annular calcification. The mitral valve leaflets appear mildly thickened, but open well. There is no mitral regurgitation noted. Aortic Valve: The aortic valve is normal in structure and function. No aortic regurgitation is present. Tricuspid Valve: The tricuspid valve is normal in structure and function. There is mild tricuspid regurgitation. The right ventricular systolic pressure is estimated to be at least 27 mmHg based on an estimated right atrial pressure of 3 mm Hg. Pulmonic Valve: The pulmonic valve is not well visualized. Great Vessels: The aortic root is normal size. The aortic arch could not be visualized. The IVC is of normal diameter and collapses greater than 50% with a sniff. This suggests a low right atrial pressure of 3 mm Hg. Pericardium/ Pleura There is no pericardial effusion. There is no pleural effusion. MMode/2D Measurements & Calculations LVIDd: 4.3 cm LVOT diam: 2.1 cm LVIDs: 3.0 cm Ao root diam: 3.3 cm FS: 30.1 % IVSd: 0.87 cm LVPWd: 0.73 cm LV major. diameter/BSA (cm/m^2): 2.2 LV sys. diameter/BSA (cm/m^2): 1.6 LA A2 area: 21.7 cm2 RA long axis: 5.1 cm LA A4 area: 19.7 cm2 RA area: 15.5 cm2 LA length (vol): 5.6 cm RA vol: 39.5 ml LA vol: 64.8 ml RA : 20.5 ml/m2 LA vol index: 33.6 ml/m2 TAPSE: 2.2 cm Doppler Measurements & Calculations Ao V2 max: 129.5 cm/sec LVOT Max Natanael: 103.2 cm/sec Ao V2 mean: 91.6 cm/sec LV V1 max P.3 mmHg Ao max P.7 mmHg LV V1 VTI: 16.6 cm Ao mean P.7 mmHg MARCOS(I,D): 3.0 cm2 Ao V2 VTI: 19.2 cm MARCOS(V,D): 2.8 cm2 sev ratio: 0.87 MARCOS indexed to BSA (cm^2/m^2): 1.6 TR max natanael: 246.2 cm/sec SV(LVOT): 57.6 ml TR max P.2 mmHg Reading Physician:01:38 PM
--- NOTE | 2021-01-08 17:50 | DI.RAD.S_ITS ---
PROCEDURE: XR CHEST 2V INDICATIONS: shortness of breath TECHNIQUE: 2 views of the chest were acquired. COMPARISON: [facility], CR, XR CHEST 2V, 11/18/2020, 17:23. FINDINGS: Surgical changes and devices: None. Lungs and pleura: There is hyperinflation of the lungs with flattening of the hemidiaphragms compatible with COPD. There is no acute consolidation. Linear opacities are redemonstrated in the lung bases consistent with scarring or atelectasis. No pleural effusions or pneumothorax. Mediastinum: Mediastinal contours are unchanged. Heart size is normal. Bones and chest wall: There is old fracture of the right 7th rib redemonstrated. Soft tissues appear unremarkable. IMPRESSION: 1. Findings consistent with COPD redemonstrated without acute consolidation. Dictated by: Melo Flores M.D. on 01/08/2021 at 18:24 Approved by: Melo Flores M.D. on 01/08/2021 at 18:25
--- NOTE | 2021-01-08 18:03 | ED_ITS ---
HPI - URI/Sore Throat General Chief Complaint: Upper Respiratory Symptoms Stated Complaint: Cough Time Seen by Provider: 01/08/21 17:58 Source: patient and EMS Mode of arrival: EMS History of Present Illness HPI Narrative: Patient is a 80-year-old male with history of COPD on home O2, Presenting today after a coughing spell. He says he occasionally gets coughing spells but this 1 seemed to be worse than normal. He denies any chest pain or palpitations. He denies any lightheadedness or syncope from his coughing. He denies any weakness numbness tingling fever or chills. He says he really does had a bad coughing spell and now feels fine. His daughter is the 1 who called the 8 car. He is noted to be in AFib rate controlled I do not see history of atrial fibrillation and previous EKGs do show normal sinus rhythm. MD Complaint: cough Relieving factors: nothing Exacerbating factors: nothing Related Data Previous Rx's Medication Instructions Recorded albuterol sulfate 90 mcg/actuation 2 puff INHALATION Q4-6H PRN #17 g 10/15/20 aerosol inhaler aspirin 325 mg tablet 325 mg PO DAILY #90 tab 10/15/20 atorvastatin 10 mg tablet 10 mg PO BEDTIME #90 tab 10/15/20 diltiazem HCl 180 mg 180 mg PO DAILY #90 cap 10/15/20 capsule,extended release 24 hr fluticasone 500 mcg-salmeterol 50 1 inh INHALATION BID #120 ea 10/15/20 mcg/dose blistr powdr for inhalation ipratropium 0.5 mg-albuterol 3 mg 3 ml INHALATION Q4-6H PRN #540 ml 10/15/20 (2.5 mg base)/3 mL nebulization MDD 6 times per day soln ipratropium 20 mcg-albuterol 100 1 puff INHALATION QID #12 g 10/15/20 mcg/actuation mist for inhalation lisinopril 10 mg tablet 10 mg PO DAILY #90 tab 10/15/20 nebulizers #1 ea 10/15/20 nicotine 21 mg/24 hr daily 1 patch TRANSDERMAL DAILY #28 ea 10/15/20 transdermal patch prednisone 10 mg tablet 10 mg PO DAILY #90 tab 10/15/20 Allergies Allergy/AdvReac Type Severity Reaction Status Date / Time No Known Drug Allergies Allergy Verified 01/08/21 17:43 Review of Systems Review of Systems ROS Unobtainable: All systems reviewed & are unremarkable except as noted in HPI and below Constitutional Constitutional: Denies chills, Denies fever(s), Denies headache(s), Denies lethargy and Denies weakness ENT Ears, Nose, Mouth, and Throat: Denies change in voice, Denies headache(s), Denies neck pain and Denies sore throat Cardiovascular Cardiovascular: Denies chest pain, Denies chest pain at rest, Denies edema, Denies palpitations, Denies dyspnea and Denies dyspnea on exertion Respiratory Respiratory: Reports as per HPI, Reports cough, Denies hemoptysis, Denies dyspnea and Denies dyspnea on exertion Gastrointestinal Gastrointestinal: Denies abdominal pain, Denies change in bowel habits, Denies diarrhea, Denies nausea and Denies vomiting Musculoskeletal Musculoskeletal: Denies back pain, Denies myalgias and Denies neck pain Integumentary/Breasts Skin/Breast: Denies pruritus, Denies erythema, Denies rash and Denies wounds Neurologic Neurologic: Denies abnormal speech, Denies headache(s) and Denies weakness Endocrine Endocrine: Denies palpitations Patient History Medical History Aneurysm Chronic cough COPD (chronic obstructive pulmonary disease) Hearing loss History of emphysema Oxygen dependent Sleep apnea Surgical History History of bladder surgery Social History household members: children Smoking Status: Former smoker Tobacco: How many years used: 30 Smokeless tobacco user: chewing tobacco (former ) quit status: not considering quitting (Daughter is weaning pt off ) alcohol intake: former substance use type: does not use Smoking Status: Former smoker tobacco type: cigarettes Substance Use Type: does not use Exam Initial Vital Signs Initial Vital Signs: Vital Signs Pulse Rate 94 H 01/08/21 17:44 Respiratory Rate 25 H 01/08/21 17:44 Blood Pressure 134/79 01/08/21 17:44 Pulse Oximetry 98 01/08/21 17:44 GENERAL: Alert 80-year-old male and in no acute distress. HEENT: Head atraumatic,EOMI, pupils reactive, face symmetric, moist mucous membranes CARDIOVASCULAR: Irregularly irregular RESPIRATORY: Breath sounds equal bilaterally, no wheezes rales or rhonchi. ABDOMEN: Soft, nontender. Normoactive bowel sounds all 4 quadrants. No guarding or rebound. EXTREMITIES: Normal range of motion, no clubbing. +2 pitting edema bilaterally Neurovascularly intact NEUROLOGICAL: Alert and oriented x4.Normal gait and speech. Cranial nerves II through XII grossly intact. SKIN: Warm, dry, no laceration, no petechiae, no rashes or lesions. Course Orders Ordered: ED Orders 01/08/21 17:35 Complete Blood Count AUTO DIFF Stat Comprehensive Metabolic Panel Stat Lactate (Lactic Acid) Stat NT-proBNP (BNP-Adult 18+) Stat Prothrombin Time INR Stat 01/08/21 17:36 Sputum Culture Stat 01/08/21 17:50 XR chest 2V Stat EKG-12 Lead Stat 01/08/21 17:52 Blood Culture Stat 01/08/21 18:09 Procalcitonin Stat Troponin & CK Cardiac Panel Stat 01/08/21 19:03 CT angio chest PE protocol Stat 01/08/21 19:25 COVID19 - ADMIT (ACID CHANGER swab/PCR) Stat Acetaminophen (Acetaminophen 325 Mg Tablet) 650 mg PO Q6HR PRN PRN Reason: Fever/Mild Pain (1-3) Al Hydrox/Mg Hydrox/Simethicone (Mag Hydrox/Alum/Simeth 30 Ml Udc) 30 ml PO Q6HR PRN PRN Reason: Dyspepsia Albuterol (Albuterol 2.5 Mg/3 Ml Neb (Adult)) 2.5 mg INH [id number] PRN PRN Reason: Shortness Of Breath Last Admin: 01/08/21 23:20 Dose: 2.5 mg Documented by: ITOLENADA Albuterol/Ipratropium (Albuterol/Ipratropium 3 Ml Ampul) 3 ml INH RTQID MARYJANE Aspirin (Aspirin 325 Mg Tablet) 325 mg PO DAILY MARYJANE Atorvastatin Calcium (Atorvastatin 20 Mg Tablet) 10 mg PO BEDTIME MARYJANE Last Admin: 01/08/21 23:09 Dose: 10 mg Documented by: CWHITE Bisacodyl (Bisacodyl 10 Mg Supp) 10 mg CA DAILY PRN PRN Reason: Constipation Calcium Carbonate (Calcium Carbonate 500 Mg Tab) 1,000 mg PO Q4HR PRN PRN Reason: Dyspepsia Diltiazem HCl (Diltiazem Cd 180 Mg Cap) 180 mg PO DAILY [facility] Docusate Sodium (Docusate 100 Mg Capsule) 100 mg PO BID [facility] Enoxaparin Sodium (Enoxaparin 40 Mg/0.4 Ml Syringe) 80 mg 1 mg/kg (80 mg) SUBCUT BID [facility] Last Admin: 01/08/21 23:07 Dose: 80 mg Documented by: URMILA Furosemide (Furosemide 20 Mg Tablet) 20 mg PO DAILY [facility] Levofloxacin (Levaquin) 750 mg in 150 mls @ 100 mls/hr IV Q24H [facility] Last Admin: 01/08/21 23:49 Dose: 100 mls/hr Documented by: GUY Lisinopril (Lisinopril 10 Mg Tablet) 10 mg PO DAILY [facility] Naloxone HCl (Naloxone 0.4 Mg/Ml Vial) 0.2 mg IV Q2MIN PRN PRN Reason: Opiate Reversal Ondansetron HCl (Ondansetron 4 Mg/2 Ml Inj) 4 mg IV Q8HR PRN PRN Reason: Nausea And Vomiting Prednisone (Prednisone 20 Mg Tablet) 10 mg PO DAILY [facility] Fluticasone/Salmeterol (Fluticasone/Salmeterol 500/50 60 Puff Diskus) 1 puff INH RTBID [facility] Discontinued Medications Albuterol/Ipratropium (Albuterol/Ipratropium 3 Ml Ampul) 3 ml INH RTBID [facility] Atorvastatin Calcium (Atorvastatin 20 Mg Tablet) 10 mg PO BEDTIME [facility] Furosemide (Furosemide 40 Mg/4 Ml Vial) 20 mg IV NOW ONE Stop: 01/08/21 19:05 Last Admin: 01/08/21 19:16 Dose: 20 mg Documented by: ELAINA Azithromycin 500 mg/ Dextrose 250 mls @ 250 mls/hr IV Q24H [facility] Stop: 01/10/21 23:59 Last Admin: 01/08/21 23:42 Dose: Not Given Documented by: GUY Ceftriaxone Sodium/Dextrose (Rocephin) 2 gm in 50 mls @ 100 mls/hr IV Q24H [facility] Non-Formulary Medication (Atorvastatin) 10 mg PO BEDTIME [facility] Vital Signs Vital signs: Vital Signs - 8 hr 01/08/21 17:44 01/08/21 17:53 01/08/21 18:00 Pulse Rate 94 H 96 H 99 H Respiratory Rate 25 H 30 H 23 Blood Pressure 134/79 127/73 Pulse Oximetry 98 100 100 01/08/21 18:30 01/08/21 19:00 01/08/21 19:38 Pulse Rate 85 93 H 101 H Respiratory Rate 22 26 H 25 H Blood Pressure 118/74 121/77 Pulse Oximetry 99 01/08/21 20:00 01/08/21 20:30 01/08/21 21:00 Pulse Rate 121 H 91 H 103 H Respiratory Rate 30 H 20 20 Blood Pressure Pulse Oximetry 100 100 100 MDM - URI/Sore Throat Lab Data Attestation: I reviewed the patient's lab results. Result diagrams: 01/08/21 17:35 01/08/21 17:35 Labs: Lab Results 01/08/21 01/08/21 01/08/21 Range/Units 17:35 17:35 17:35 WBC 9.5 (4.5-11.0) X10^3/uL RBC 3.55 L (4.5-5.9) X10^6/uL Hgb 8.4 L (13.5-17.5) g/dL Hct 27.4 L (41-53) % MCV 77.1 L (80-100) fL MCH 23.6 L (26-34) PG MCHC 30.6 (30-36) % RDW 20.0 H (11.6-14.8) % Plt Count 399 (150-400) X10^3/uL Neut % (Auto) 78.7 H (50-75) % Lymph % (Auto) 10.5 L (25-40) % [place] % (Auto) 10.1 (3-14) % Eos % (Auto) 0.3 L (2-4) % Baso % (Auto) 0.4 (0-2) % Neut # (Auto) 7500 H (1483-0806) /uL Lymph # (Auto) 1000 L (1299-6720) /uL [place] # (Auto) 1000 H (0-900) /uL Eos # (Auto) 0 (0-450) /uL Baso # (Auto) 0 (0-100) /uL PT (10.1-12.7) SECONDS INR (0.9-1.3) Sodium 141 (137-145) mmol/L Potassium 4.7 (3.4-5.1) mmol/L Chloride 107 (98-107) mmol/L Carbon Dioxide 28 (22-32) mmol/L BUN 17 (9-20) mg/dL Creatinine 0.99 (0.66-1.25) mg/dL Estimated GFR > 60.0 (>60) mL/min BUN/Creatinine Ratio 17.2 (6-22) Glucose 94 (80-110) mg/dL Lactate 1.0 (0.7-2.1) mmol/L Calcium 8.8 (8.4-10.2) mg/dL Magnesium (1.6-2.3) mg/dL Total Bilirubin 0.1 L (0.2-1.3) mg/dL AST 25 (17-59) IU/L ALT 22 (<50) IU/L Alkaline Phosphatase 83 (38-126) U/L Total Creatine Kinase (55-170) U/L CK-MB (CK-2) (<2.37) ng/mL CK-MB (CK-2) Rel Index (1.5-5.0) % Troponin I (0.01-0.034) ng/mL NT-Pro-B Natriuret Pep 1350 H (<450) pg/mL Total Protein 6.5 (6.3-8.2) g/dL Albumin 3.7 (3.5-5.0) g/dL Globulin 2.8 (1.7-4.1) g/dL Albumin/Globulin Ratio 1.3 (1.0-2.8) Procalcitonin (<0.5) ng/mL SARS-CoV-2 (PCR) (Negative) 01/08/21 01/08/21 01/08/21 Range/Units 17:35 18:09 18:09 WBC (4.5-11.0) X10^3/uL RBC (4.5-5.9) X10^6/uL Hgb (13.5-17.5) g/dL Hct (41-53) % MCV (80-100) fL MCH (26-34) PG MCHC (30-36) % RDW (11.6-14.8) % Plt Count (150-400) X10^3/uL Neut % (Auto) (50-75) % Lymph % (Auto) (25-40) % [place] % (Auto) (3-14) % Eos % (Auto) (2-4) % Baso % (Auto) (0-2) % Neut # (Auto) (4679-6919) /uL Lymph # (Auto) (1914-1202) /uL [place] # (Auto) (0-900) /uL Eos # (Auto) (0-450) /uL Baso # (Auto) (0-100) /uL PT 11.3 (10.1-12.7) SECONDS INR 1.0 (0.9-1.3) Sodium (137-145) mmol/L Potassium (3.4-5.1) mmol/L Chloride (98-107) mmol/L Carbon Dioxide (22-32) mmol/L BUN (9-20) mg/dL Creatinine (0.66-1.25) mg/dL Estimated GFR (>60) mL/min BUN/Creatinine Ratio (6-22) Glucose (80-110) mg/dL Lactate (0.7-2.1) mmol/L Calcium (8.4-10.2) mg/dL Magnesium (1.6-2.3) mg/dL Total Bilirubin (0.2-1.3) mg/dL AST (17-59) IU/L ALT (<50) IU/L Alkaline Phosphatase (38-126) U/L Total Creatine Kinase 125 (55-170) U/L CK-MB (CK-2) 3.28 H (<2.37) ng/mL CK-MB (CK-2) Rel Index 2.6 (1.5-5.0) % Troponin I < 0.012 (0.01-0.034) ng/mL NT-Pro-B Natriuret Pep (<450) pg/mL Total Protein (6.3-8.2) g/dL Albumin (3.5-5.0) g/dL Globulin (1.7-4.1) g/dL Albumin/Globulin Ratio (1.0-2.8) Procalcitonin 0.10 (<0.5) ng/mL SARS-CoV-2 (PCR) (Negative) 01/08/21 01/08/21 Range/Units 18:09 19:25 WBC (4.5-11.0) X10^3/uL RBC (4.5-5.9) X10^6/uL Hgb (13.5-17.5) g/dL Hct (41-53) % MCV (80-100) fL MCH (26-34) PG MCHC (30-36) % RDW (11.6-14.8) % Plt Count (150-400) X10^3/uL Neut % (Auto) (50-75) % Lymph % (Auto) (25-40) % [place] % (Auto) (3-14) % Eos % (Auto) (2-4) % Baso % (Auto) (0-2) % Neut # (Auto) (8259-0293) /uL Lymph # (Auto) (2863-0913) /uL [place] # (Auto) (0-900) /uL Eos # (Auto) (0-450) /uL Baso # (Auto) (0-100) /uL PT (10.1-12.7) SECONDS INR (0.9-1.3) Sodium (137-145) mmol/L Potassium (3.4-5.1) mmol/L Chloride (98-107) mmol/L Carbon Dioxide (22-32) mmol/L BUN (9-20) mg/dL Creatinine (0.66-1.25) mg/dL Estimated GFR (>60) mL/min BUN/Creatinine Ratio (6-22) Glucose (80-110) mg/dL Lactate (0.7-2.1) mmol/L Calcium (8.4-10.2) mg/dL Magnesium 2.4 H (1.6-2.3) mg/dL Total Bilirubin (0.2-1.3) mg/dL AST (17-59) IU/L ALT (<50) IU/L Alkaline Phosphatase (38-126) U/L Total Creatine Kinase (55-170) U/L CK-MB (CK-2) (<2.37) ng/mL CK-MB (CK-2) Rel Index (1.5-5.0) % Troponin I (0.01-0.034) ng/mL NT-Pro-B Natriuret Pep (<450) pg/mL Total Protein (6.3-8.2) g/dL Albumin (3.5-5.0) g/dL Globulin (1.7-4.1) g/dL Albumin/Globulin Ratio (1.0-2.8) Procalcitonin (<0.5) ng/mL SARS-CoV-2 (PCR) Negative (Negative) Imaging Data Chest x-ray: Radiologist's Impression: PROCEDURE: XR CHEST 2V INDICATIONS: shortness of breath TECHNIQUE: 2 views of the chest were acquired. COMPARISON: [facility], XR CHEST 2V, 11/18/2020, 17:23. FINDINGS: Surgical changes and devices: None. Lungs and pleura: There is hyperinflation of the lungs with flattening of the hemidiaphragms compatible with COPD. There is no acute consolidation. Linear opacities are redemonstrated in the lung bases consistent with scarring or atelectasis. No pleural effusions or pneumothorax. Mediastinum: Mediastinal contours are unchanged. Heart size is normal. Bones and chest wall: There is old fracture of the right 7th rib redemonstrated. Soft tissues appear unremarkable. IMPRESSION: 1. Findings consistent with COPD redemonstrated without acute consolidation. Dictated by: Melo Flores M.D. on 01/08/2021 at 18:24 CT scan - chest: Radiologist's Impression: PROCEDURE: CT ANGIO CHEST PE PROTOCOL INDICATIONS: shortness of breath TECHNIQUE: After the administration of intravenous contrast, 2 mm thick sections acquired from the pulmonary apices to the posterior costophrenic angles. 3-dimensional maximum intensity projection (MIP) coronal and sagittal reformats were then acquired through the thorax. For radiation dose reduction, the following was used: automated exposure control, adjustment of mA and/or kV according to patient size. COMPARISON: [facility], XR CHEST 2V, 01/08/2021, 18:07. FINDINGS: Image quality: Excellent. Pulmonary arteries: Pulmonary arteries are normal in size, and demonstrate no intraluminal filling defects to suggest central pulmonary embolism. Lungs and pleura: There are severe centrilobular emphysematous changes. Bilateral bronchial wall thickening is demonstrated with a perihilar and basilar predominance. Scattered areas of mild mucous plugging are demonstrated in the lung bases bilaterally. Linear atelectasis or scarring demonstrated in the lung bases. No acute consolidation. No pneumothorax. No pleural effusions or pneumothorax. Central and peripheral airways are patent. Mediastinum: Heart size is normal, without pericardial effusion. There is moderate to severe coronary arterial vascular calcification. No mediastinal or hilar adenopathy by size criteria. Thoracic aorta is normal in caliber and enhancement. Esophagus is normal in caliber, with a small hiatal hernia. Bones and chest wall: No suspicious bony lesions. Ribs and thoracic spine appear intact throughout. No axillary or supraclavicular adenopathy. Abdomen: Visualized upper abdomen demonstrates multiple cysts within the visualized left kidney. IMPRESSION: 1. No evidence of pulmonary embolism. 2. Bilateral bronchial wall thickening with scattered areas of mucous plugging compatible with a bronchiolitis. No focal consolidation. 3. Severe emphysematous changes. Dictated by: Melo Flores M.D. on 01/08/2021 at 20:28 ECG Data Attestation: I personally reviewed and interpreted this ECG as follows: Prior ECG tracings: available for review Interpretation: EKG 1. Atrial fibrillation, rate 87 low voltage to each no ST changes previous EKG shows sinus rhythm EKG 2. Persistent atrial fibrillation rate 80 MDM Narrative Medical decision making narrative: Patient is found to have new onset atrial fibrillation but his rate is controlled. BNP is elevated at 1300 my suspicion is from undiagnosed atrial fibrillation. He is having increasing shortness of breath and coughing spells. CT does not reveal any pulmonary embolism but does show bronchiectasis which would explain his large amount of sputum. He is afebrile and does not have any leukocytosis. He is found to be anemic he denies any black or tarry stools. Anemia may be contributing to his new onset atrial fibrillation. Itz ROJAS updated patient's symptoms test results and happily accepted patient Discharge Plan Departure Patient Disposition: Admitted as Observation Clinical Impression: Atrial fibrillation, new onset, Anemia, CHF (congestive heart failure), Bronchiectasis Admit Date/Time: 01/08/21 21:45 Admit Provider: Alexis Palacio
[2021-01-08 18:09] LABS: Prothrombin Time 11.3 SECONDS (10.1-12.7)
[2021-01-08 18:14] LABS: Add Manual Diff / Slide Review NO; Basophils Absolute Auto 0 /uL (0-100); Basophils Percent Auto 0.4 % (0-2); Eosinophils Absolute Auto 0 /uL (0-450); Eosinophils Percent Auto 0.3 % (2-4); Hematocrit 27.4 % (41-53); Hemoglobin 8.4 g/dL (13.5-17.5); Lymphocytes Absolute Auto 1000 /uL (1100-4500); Lymphocytes Percent Auto 10.5 % (25-40); Mean Corpuscular HGB Conc 30.6 % (30-36); Mean Corpuscular Hemoglobin 23.6 PG (26-34); Mean Corpuscular Volume 77.1 fL (80-100); Monocytes Absolute Auto 1000 /uL (0-900); Monocytes Percent Auto 10.1 % (3-14); Neutrophils Absolute Auto 7500 /uL (1500-7000); Neutrophils Percent Auto 78.7 % (50-75); Platelet Count 399 X10^3/uL (150-400); Red Blood Cell Count 3.55 X10^6/uL (4.5-5.9); White Blood Cell Count 9.5 X10^3/uL (4.5-11.0)
[2021-01-08 18:19] LABS: Creatine Kinase 125 U/L (55-170)
[2021-01-08 18:21] LABS: Alanine Aminotransferase 22 IU/L (<50); Albumin 3.7 g/dL (3.5-5.0); Albumin Globulin Ratio 1.3 (1.0-2.8); Alkaline Phosphatase 83 U/L (38-126); Aspartate Aminotransferase 25 IU/L (17-59); BUN Creatinine Ratio 17.2 (6-22); Bilirubin Total 0.1 mg/dL (0.2-1.3); Blood Urea Nitrogen 17 mg/dL (9-20); Calcium 8.8 mg/dL (8.4-10.2); Carbon Dioxide 28 mmol/L (22-32); Chloride 107 mmol/L (98-107); Estimated Glomerular Filt Rate > 60.0 mL/min (>60); Globulin 2.8 g/dL (1.7-4.1); Glucose 94 mg/dL (80-110); HEMOLYSIS < 15 (0-50); Potassium 4.7 mmol/L (3.4-5.1); Sodium 141 mmol/L (137-145); Total Protein 6.5 g/dL (6.3-8.2)
[2021-01-08 18:27] LABS: NT-proBNP (BNP-Adult 18+) 1350 pg/mL (<450)
[2021-01-08 18:31] LABS: Troponin I < 0.012 ng/mL (0.01-0.034)
[2021-01-08 18:34] LABS: CKMB % Relative Index 2.6 % (1.5-5.0); Creatine Kinase MB 3.28 ng/mL (<2.37)
--- NOTE | 2021-01-08 19:03 | DI.CT.S_ITS ---
PROCEDURE: CT ANGIO CHEST PE PROTOCOL INDICATIONS: shortness of breath TECHNIQUE: After the administration of intravenous contrast, 2 mm thick sections acquired from the pulmonary apices to the posterior costophrenic angles. 3-dimensional maximum intensity projection (MIP) coronal and sagittal reformats were then acquired through the thorax. For radiation dose reduction, the following was used: automated exposure control, adjustment of mA and/or kV according to patient size. COMPARISON: [facility], CR, XR CHEST 2V, 01/08/2021, 18:07. FINDINGS: Image quality: Excellent. Pulmonary arteries: Pulmonary arteries are normal in size, and demonstrate no intraluminal filling defects to suggest central pulmonary embolism. Lungs and pleura: There are severe centrilobular emphysematous changes. Bilateral bronchial wall thickening is demonstrated with a perihilar and basilar predominance. Scattered areas of mild mucous plugging are demonstrated in the lung bases bilaterally. Linear atelectasis or scarring demonstrated in the lung bases. No acute consolidation. No pneumothorax. No pleural effusions or pneumothorax. Central and peripheral airways are patent. Mediastinum: Heart size is normal, without pericardial effusion. There is moderate to severe coronary arterial vascular calcification. No mediastinal or hilar adenopathy by size criteria. Thoracic aorta is normal in caliber and enhancement. Esophagus is normal in caliber, with a small hiatal hernia. Bones and chest wall: No suspicious bony lesions. Ribs and thoracic spine appear intact throughout. No axillary or supraclavicular adenopathy. Abdomen: Visualized upper abdomen demonstrates multiple cysts within the visualized left kidney. IMPRESSION: 1. No evidence of pulmonary embolism. 2. Bilateral bronchial wall thickening with scattered areas of mucous plugging compatible with a bronchiolitis. No focal consolidation. 3. Severe emphysematous changes. Dictated by: Melo Flores M.D. on 01/08/2021 at 20:28 Approved by: Melo Flores M.D. on 01/08/2021 at 20:32
[2021-01-08] MEDS: FUROSEMIDE 40 MG/4 ML VIAL 20 MG IV (19:16)
[2021-01-08 20:42] LABS: COVID19 - ADMIT (NP swab/PCR) Negative (Negative)
[2021-01-08 22:00] LABS: Magnesium 2.4 mg/dL (1.6-2.3)
[2021-01-08] MEDS: ENOXAPARIN 40 MG/0.4 ML SYRINGE 80 MG SUBCUT (23:07)
[2021-01-08] MEDS: ATORVASTATIN 20 MG TABLET 10 MG PO (23:09)
[2021-01-08] MEDS: ALBUTEROL 2.5 MG/3 ML NEB (ADULT) INH (23:20)
[2021-01-08] MEDS: levoFLOXacin 750 MG/150 ML PIGGYBACK 100 MG IV (23:49)
[2021-01-08 23:55] LABS: Adenovirus Not Detected (Not Detect); B. parapertussis Not Detected (Not Detecte); Bordetella pertussis Not Detected (Not Detecte); Chlamydophila pneumoniae Not Detected (Not Detect); Coronavirus 229E Not Detected (Not Detect); Coronavirus HKU1 Not Detected (Not Detect); Coronavirus NL 63 Not Detected (Not Detect); Coronavirus OC43 Not Detected (Not Detect); Human Metapneumovirus Not Detected (Not Detect); Human Rhinovirus/Enterovirus Detected (Not Detect); Influenza A Not Detected (Not Detect); Influenza B Not Detected (Not Detect); Mycoplasma pneumoniae Not Detected (Not Detect); Parainfluenza Virus 1 Not Detected (Not Detect); Parainfluenza Virus 2 Not Detected (Not Detect); Parainfluenza Virus 3 Not Detected (Not Detect); Parainfluenza Virus 4 Not Detected (Not Detect); Respiratory Syncytial Virus Not Detected (Not Detect); SARS- CoV-2 Not Detected (Not Detecte)
[2021-01-09] VITALS (16 sets, daily range): BP systolic 106–137; BP diastolic 60–73; PULSE 76–148; RESP 16–32; TEMP 36.3–37.1; O2SAT 92–100
--- NOTE | 2021-01-09 00:35 | PC.NURSE ---
Pt alert and oriented x4 but forgetful. Does not remember any of of his home medications or that he uses oxygen at home. Daughter to bring in med list in the AM. Pt voiding to urinal without issues. Wheezing and SOB with any excertion. Pt denies any pain or chest pain. No complaints
[2021-01-09] MEDS: ALBUTEROL 2.5 MG/3 ML NEB (ADULT) INH (01:55)
--- NOTE | 2021-01-09 02:37 | PC.NURSE ---
Pt HR sustaining 120s and upto 140s with any movement. Notified Hakeem KUMAR TO received
[2021-01-09] MEDS: METOPROLOL TARTRATE 5 MG/5 ML INJ IV (02:48)
--- NOTE | 2021-01-09 03:10 | PM.HP.1 ---
History of Present Illness History of Present Illness Date Patient Seen: 01/08/21 Time Patient Seen: 22:30 Chief complaint: Cough Narrative: Mr. Ramon Mosquera is a 80-year-old male patient with past medical history emphysema on home O2, chronic cough, aneurysm, obstructive sleep apnea and hearing loss who presents to the ER via EMS with complaints of shortness of breath cough. The patient states he has a chronic cough however today he is coughing up thick green sputum. He states he has had progressive dyspnea and coughing over the last 3 days. He describes minimal activity tolerance due to the dyspnea. He denies complaints of chest pain, fevers or chills or rigors. He has had no known sick contacts. The patient is on chronic home O2 and has continued to smoke per the medical record however the patient states he quit years ago. He has a 50 pack year smoking history. The patient additionally has complained of leg swelling but cannot state whether it is been worse recently. Patient denies complaints of epigastric or abdominal pain and has had no nausea vomiting. Reports no change in his bowel habits last bowel movement yesterday morning. He reports no difficulty urinating. Upon arrival the ER patient has a heart rate in 94, blood pressure of 134/79, respiratory rate of 25 saturating 98% on 3 L nasal cannula. Chest x-ray is obtained which finds note COPD without acute consolidations. A CTA is obtained which finds no pulmonary embolism, severe central lobar emphysema, bilateral bronchial wall thickening with scattered mucous plugging consistent with bronchiolitis. On 12 lead EKG he is found to be in atrial fibrillation with a ventricular rate of 87 without ectopy or block. Prior EKG identified sinus rhythm with PACs. On laboratory analysis the patient has white count of 9.5 with neutrophils of 7500 and monocytes 1000, hemoglobin of 8.4 and hematocrit of 27.4 with platelets of 399. He has a PT of 11.3 in a INR of 1.0. His electrolytes within normal range with a potassium of 4.7 BUN of 17 and creatinine 0.99. His nonfasting glucose is 99. His liver functions are within normal range she has an albumin of 3.7. His lactic acid is 1.0 with procalcitonin is 0.10. His total CK is 125 with CK-MB of 328 for an index of 2.6. His troponin is negative at less than 0.012. His proBNP is elevated at 1350. His COVID screening is negative. In the ER the patient received Lasix 20 mg. Requested magnesium level which was found to be 2.4 and respiratory PCR panel. The patient is admitted to the hospital for acute on chronic respiratory failure and new atrial fibrillation. Patient History Medical History Aneurysm Chronic cough COPD (chronic obstructive pulmonary disease) Hearing loss History of emphysema Oxygen dependent Sleep apnea Surgical History History of bladder surgery Family & Social History Family History (Updated 01/09/21 @ 03:28 by BOB Ni) Father No significant medical problems Mother Medical history unknown Social History: household members children Prior Living Arrangements House Safety & Behavioral: Feels Safe in Current Yes Environment Been Physically Hurt or Yes Threatened By a Person Suicidal Ideation Description None Suicide Plan Description No Plan Tobacco & Substance use: Tobacco type cigarettes Smoking Status Former smoker alcohol intake former Substance Use Type does not use Meds Home Medications and Allergies Home Medications Medication Instructions Recorded Confirmed Type albuterol sulfate 90 mcg/actuation 2 puff INHALATION Q4-6H PRN #17 g 10/15/20 11/18/20 Rx aerosol inhaler aspirin 325 mg tablet 325 mg PO DAILY #90 tab 10/15/20 11/18/20 Rx atorvastatin 10 mg tablet 10 mg PO BEDTIME #90 tab 10/15/20 11/18/20 Rx diltiazem HCl 180 mg 180 mg PO DAILY #90 cap 10/15/20 11/18/20 Rx capsule,extended release 24 hr fluticasone 500 mcg-salmeterol 50 1 inh INHALATION BID #120 ea 10/15/20 11/18/20 Rx mcg/dose blistr powdr for inhalation ipratropium 0.5 mg-albuterol 3 mg 3 ml INHALATION Q4-6H PRN #540 ml 10/15/20 11/18/20 Rx (2.5 mg base)/3 mL nebulization MDD 6 times per day soln ipratropium 20 mcg-albuterol 100 1 puff INHALATION QID #12 g 10/15/20 10/15/20 Rx mcg/actuation mist for inhalation lisinopril 10 mg tablet 10 mg PO DAILY #90 tab 10/15/20 10/15/20 Rx nebulizers #1 ea 10/15/20 10/15/20 Rx nicotine 21 mg/24 hr daily 1 patch TRANSDERMAL DAILY #28 ea 10/15/20 10/15/20 Rx transdermal patch prednisone 10 mg tablet 10 mg PO DAILY #90 tab 10/15/20 10/15/20 Rx Allergies Allergy/AdvReac Type Severity Reaction Status Date / Time No Known Drug Allergies Allergy Verified 01/08/21 17:43 Review of Systems Review of Systems ROS: Yes All systems reviewed with the patient and are negative except as otherwise documented Exam Vital Signs (past 8 hours): - 01/08/21 19:38 01/08/21 20:00 01/08/21 20:30 Temperature Pulse Rate 101 H 121 H 91 H Respiratory Rate 25 H 30 H 20 Blood Pressure Pulse Oximetry 99 100 100 01/08/21 21:00 01/08/21 22:12 01/08/21 23:20 Temperature 98.5 F Pulse Rate 103 H 104 H Respiratory Rate 20 30 H Blood Pressure 139/82 Pulse Oximetry 100 100 96 01/09/21 00:06 01/09/21 00:33 01/09/21 01:55 Temperature 97.8 F Pulse Rate 105 H 125 H Respiratory Rate 22 25 H Blood Pressure 126/60 Pulse Oximetry 98 94 97 01/09/21 02:36 Temperature Pulse Rate 120 H Respiratory Rate 22 Blood Pressure 137/65 Pulse Oximetry 94 Oxygen Delivery Method Nasal Cannula Oxygen Flow Rate 1 Narrative Exam Narrative: GENERAL APPEARANCE: well developed, adequately nourished elderly male with increased work of breathing and rattling cough HEENT: Normocephalic, PERRLA, conjunctiva clear, EOMs intact without nystagmus, no sinus tenderness to percussion, no rhinorrhea, edentulous, mucous membranes are moist and pink. NECK/THYROID: neck supple, no JVD, no carotid bruit, no thyromegaly, trachea midline. LYMPH NODES: no cervical or supraclavicular lymphadenopathy. SKIN: [place], warm and dry, no visible lesions, rashes, ulcerations or petechiae. HEART: Irregularly irregular, S1-S2, no murmur, no rubs or gallops, brisk capillary refill, 1 to 2+ pedal edema LUNGS: Breath sounds globally decreased, marked central coarseness, generalized wheezing throughout expiration, moist rattling cough on deep inspiration CHEST: Increased AP diameter, symmetrical movement, prolonged expiratory phase, fair tidal volume. ABDOMEN: Soft, no distention, dull to percussion, no abdominal tenderness, no organomegaly, active bowel tones. EXTREMITIES: moves all extremities, strength is 5/5 and symmetrical, no deformities or joint effusions, clubbing present. NEUROLOGIC: AAO x person and place, year and month, could not stay date or time, cranial nerves II-XII grossly intact, sensation intact to light touch, impaired hearing PSYCH: Alert and responsive, cooperative, appropriate stable behavior. Objective Labs Result Diagrams: 01/08/21 17:35 01/08/21 17:35 Labs: Laboratory Results - last 24 hr 01/08/21 01/08/21 01/08/21 17:35 17:35 17:35 WBC 9.5 RBC 3.55 L Hgb 8.4 L Hct 27.4 L MCV 77.1 L MCH 23.6 L MCHC 30.6 RDW 20.0 H Plt Count 399 Neut % (Auto) 78.7 H Lymph % (Auto) 10.5 L [place] % (Auto) 10.1 Eos % (Auto) 0.3 L Baso % (Auto) 0.4 Neut # (Auto) 7500 H Lymph # (Auto) 1000 L [place] # (Auto) 1000 H Eos # (Auto) 0 Baso # (Auto) 0 PT INR Sodium 141 Potassium 4.7 Chloride 107 Carbon Dioxide 28 BUN 17 Creatinine 0.99 Estimated GFR > 60.0 BUN/Creatinine Ratio 17.2 Glucose 94 Lactate 1.0 Calcium 8.8 Magnesium Total Bilirubin 0.1 L AST 25 ALT 22 Alkaline Phosphatase 83 Total Creatine Kinase CK-MB (CK-2) CK-MB (CK-2) Rel Index Troponin I NT-Pro-B Natriuret Pep 1350 H Total Protein 6.5 Albumin 3.7 Globulin 2.8 Albumin/Globulin Ratio 1.3 Procalcitonin Nasal Screen MRSA (PCR) Chlamy pneumoniae PCR Adenovirus (PCR) B. pertussis DNA (PCR) B.parapertussis DNA PCR Coronavirus OC43 (PCR) Coronavirus HKU1 (PCR) Coronavirus 229E (PCR) SARS-CoV-2 (PCR) Coronavirus NL63 (PCR) Human Metapneumovir PCR Influenza Type A (PCR) Influenza Type B (PCR) M. pneumoniae (PCR) Parainfluenza 1 (PCR) Parainfluenza 2 (PCR) Parainfluenza 3 (PCR) Parainfluenza 4 (PCR) RSV (PCR) Entero/Rhino (PCR) 01/08/21 01/08/21 01/08/21 17:35 18:09 18:09 WBC RBC Hgb Hct MCV MCH MCHC RDW Plt Count Neut % (Auto) Lymph % (Auto) [place] % (Auto) Eos % (Auto) Baso % (Auto) Neut # (Auto) Lymph # (Auto) [place] # (Auto) Eos # (Auto) Baso # (Auto) PT 11.3 INR 1.0 Sodium Potassium Chloride Carbon Dioxide BUN Creatinine Estimated GFR BUN/Creatinine Ratio Glucose Lactate Calcium Magnesium Total Bilirubin AST ALT Alkaline Phosphatase Total Creatine Kinase 125 CK-MB (CK-2) 3.28 H CK-MB (CK-2) Rel Index 2.6 Troponin I < 0.012 NT-Pro-B Natriuret Pep Total Protein Albumin Globulin Albumin/Globulin Ratio Procalcitonin 0.10 Nasal Screen MRSA (PCR) Chlamy pneumoniae PCR Adenovirus (PCR) B. pertussis DNA (PCR) B.parapertussis DNA PCR Coronavirus OC43 (PCR) Coronavirus HKU1 (PCR) Coronavirus 229E (PCR) SARS-CoV-2 (PCR) Coronavirus NL63 (PCR) Human Metapneumovir PCR Influenza Type A (PCR) Influenza Type B (PCR) M. pneumoniae (PCR) Parainfluenza 1 (PCR) Parainfluenza 2 (PCR) Parainfluenza 3 (PCR) Parainfluenza 4 (PCR) RSV (PCR) Entero/Rhino (PCR) 01/08/21 01/08/21 01/08/21 18:09 19:25 22:13 WBC RBC Hgb Hct MCV MCH MCHC RDW Plt Count Neut % (Auto) Lymph % (Auto) [place] % (Auto) Eos % (Auto) Baso % (Auto) Neut # (Auto) Lymph # (Auto) [place] # (Auto) Eos # (Auto) Baso # (Auto) PT INR Sodium Potassium Chloride Carbon Dioxide BUN Creatinine Estimated GFR BUN/Creatinine Ratio Glucose Lactate Calcium Magnesium 2.4 H Total Bilirubin AST ALT Alkaline Phosphatase Total Creatine Kinase CK-MB (CK-2) CK-MB (CK-2) Rel Index Troponin I NT-Pro-B Natriuret Pep Total Protein Albumin Globulin Albumin/Globulin Ratio Procalcitonin Nasal Screen MRSA (PCR) Negative for mrsa Chlamy pneumoniae PCR Adenovirus (PCR) B. pertussis DNA (PCR) B.parapertussis DNA PCR Coronavirus OC43 (PCR) Coronavirus HKU1 (PCR) Coronavirus 229E (PCR) SARS-CoV-2 (PCR) Negative Coronavirus NL63 (PCR) Human Metapneumovir PCR Influenza Type A (PCR) Influenza Type B (PCR) M. pneumoniae (PCR) Parainfluenza 1 (PCR) Parainfluenza 2 (PCR) Parainfluenza 3 (PCR) Parainfluenza 4 (PCR) RSV (PCR) Entero/Rhino (PCR) 01/08/21 22:13 WBC RBC Hgb Hct MCV MCH MCHC RDW Plt Count Neut % (Auto) Lymph % (Auto) [place] % (Auto) Eos % (Auto) Baso % (Auto) Neut # (Auto) Lymph # (Auto) [place] # (Auto) Eos # (Auto) Baso # (Auto) PT INR Sodium Potassium Chloride Carbon Dioxide BUN Creatinine Estimated GFR BUN/Creatinine Ratio Glucose Lactate Calcium Magnesium Total Bilirubin AST ALT Alkaline Phosphatase Total Creatine Kinase CK-MB (CK-2) CK-MB (CK-2) Rel Index Troponin I NT-Pro-B Natriuret Pep Total Protein Albumin Globulin Albumin/Globulin Ratio Procalcitonin Nasal Screen MRSA (PCR) Chlamy pneumoniae PCR Not detected Adenovirus (PCR) Not detected B. pertussis DNA (PCR) Not detected B.parapertussis DNA PCR Not detected Coronavirus OC43 (PCR) Not detected Coronavirus HKU1 (PCR) Not detected Coronavirus 229E (PCR) Not detected SARS-CoV-2 (PCR) Not detected Coronavirus NL63 (PCR) Not detected Human Metapneumovir PCR Not detected Influenza Type A (PCR) Not detected Influenza Type B (PCR) Not detected M. pneumoniae (PCR) Not detected Parainfluenza 1 (PCR) Not detected Parainfluenza 2 (PCR) Not detected Parainfluenza 3 (PCR) Not detected Parainfluenza 4 (PCR) Not detected RSV (PCR) Not detected Entero/Rhino (PCR) Detected H Assessment & Plan Assessment & Plan narrative: This patient is a 80-year-old male patient with past medical history emphysema on home O2, chronic cough, aneurysm, obstructive sleep apnea and hearing loss who presents to the ER via EMS with complaints of shortness of breath cough that has been progressive for the last 3 days with cough becoming productive for green sputum today. 1. Acute on chronic respiratory failure with hypoxemia, present on admission, active. -upon arrival the patient is tachypneic at 25 with an oxygen saturation of 98% on 3 L per minute nasal cannula, using conversion tables equates to a PF ratio of 350. -patient with marked pronounced expiratory phase and barrel chest. -SOB is multifactorial: Underlying severe emphysema and is home O2 dependent. Bronchiectasis with bacterial versus viral pneumonia. New finding of atrial fibrillation controlled rate. New finding of elevated proBNP -problems are addressed as below. -will request a respiratory PCR panel. -requested respiratory therapy to consult evaluate and treat. 2. Severe emphysema, home O2 dependent, chronic, active. -patient with pronounced expiratory wheezing and diminished breath sounds. -ordered Atrovent and ipratropium nebulizer twice daily -order albuterol nebulizer every 2 hours as needed for shortness of breath or wheezing. -ordered prednisone 40 mg p.o. daily -will continue the patient's home regimen of fluticasone salmeterol 500-50 1 inhalation twice daily. -requested RT to consult evaluate and treat. 3. Bacterial versus viral pneumonia, secondary to bronchiectasis, acute, present on admission, active. -the patient has had increase coughing that is productive for green sputum. -CT identifies bilateral bronchial wall thickening be consistent with an infective process with areas of mucous plugging without acute consolidations. -white count is 9.5 with mildly elevated neutrophils at 7500 and elevated monocytes at with 1000. Procalcitonin is 0.1 lactic acid is 1.0. -ordered Levaquin 750 mg IV daily for presumed bacterial infection. -order guaifenesin 600 mg b.i.d. -order respiratory PCR panel to rule out viral infection. -CBC and procalcitonin in the morning. 4. Congestive heart failure, unknown type, present on admission, acute. -the patient does not have a prior diagnosis of CHF however is found to have an elevated proBNP of 1350. 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 -cardiac enzymes and troponin are negative. -the patient received Lasix 20 mg in the emergency department with diuresis of an estimated 1 L. Will continue Lasix 20 mg daily. -follow chemistries for electrolytes and recheck BMP. 5. Atrial fibrillation, unknown type pr duration, present on admission, active. -12 lead EKG identifies atrial fibrillation with a ventricular rate of 87 without ectopy or block and no evidence of infarct. No previous documentation of atrial fibrillation with prior EKG finding sinus rhythm with PACs. -potassium level is 4.7 and magnesium is 2.4. -patient takes diltiazem 180 mg extended release daily which is most likely assisting with rate control. -ordered Lovenox 1 milligram/kilogram twice daily. -ordered echocardiogram 6. Acute on chronic anemia, microcytic hypochromic, present on admission, active -initial labs finding hemoglobin of 8.4 with hematocrit of 27.4. The patient's last available hemoglobin was 11.1 in July of 2020 -will obtain iron profile. -ordered stool guaiac daily for 3 days. VTE prophylaxis: Therapeutic Lovenox at 1 milligram/kilogram. IV fluid: Saline lock Diet: Heart healthy, 2 g low-sodium. Code status: Patient states wish to be full code and identifies his daughter Nita Go to be his surrogate decision maker. The patient is admitted to the hospital due to severity of his symptoms requiring a complex treatment plan to prevent complications or adverse events. The patient be requiring IV antibiotics and multimodal treatments not available in his home setting. He is admitted as an inpatient with expected length of stay to be greater than 2 midnights. COVID-19 COVID-19 status: Negative Result date/Date tested (Pos, Neg/Pending): 01/08/21 Scores GCS [place] coma scale eye opening: Spontaneous [place] coma scale verbal response: Confused Cristopher coma scale motor response: Obey commands Cristopher coma scale total score: 14 Quality VTE Deep Vein Thrombosis/Pulmonary Embolism Present on Admission: No
[2021-01-09 05:03] LABS: Add Manual Diff / Slide Review NO; BUN Creatinine Ratio 16.4 (6-22); Basophils Absolute Auto 100 /uL (0-100); Basophils Percent Auto 0.9 % (0-2); Blood Urea Nitrogen 18 mg/dL (9-20); Calcium 8.6 mg/dL (8.4-10.2); Carbon Dioxide 33 mmol/L (22-32); Chloride 102 mmol/L (98-107); Cholesterol 128 mg/dL (140-199); Eosinophils Absolute Auto 100 /uL (0-450); Eosinophils Percent Auto 1.6 % (2-4); Estimated Glomerular Filt Rate > 60.0 mL/min (>60); Glucose 92 mg/dL (80-110); HDL Cholesterol 62 mg/dL (40-60); HEMOLYSIS < 15 (0-50); Hematocrit 25.9 % (41-53); LDL Cholesterol Calculated 53 mg/dL (<100); Lymphocytes Absolute Auto 1000 /uL (1100-4500); Lymphocytes Percent Auto 10.1 % (25-40); Magnesium 2.1 mg/dL (1.6-2.3); Mean Corpuscular HGB Conc 30.7 % (30-36); Mean Corpuscular Hemoglobin 23.7 PG (26-34); Mean Corpuscular Volume 77.2 fL (80-100); Monocytes Absolute Auto 1300 /uL (0-900); Monocytes Percent Auto 13.6 % (3-14); Neutrophils Absolute Auto 7000 /uL (1500-7000); Neutrophils Percent Auto 73.8 % (50-75); Platelet Count 373 X10^3/uL (150-400); Potassium 3.8 mmol/L (3.4-5.1); Red Blood Cell Count 3.35 X10^6/uL (4.5-5.9); Red Cell Distribution Width 19.8 % (11.6-14.8); Sodium 139 mmol/L (137-145); Triglycerides 63 mg/dL (35-150); White Blood Cell Count 9.5 X10^3/uL (4.5-11.0)
[2021-01-09 05:14] LABS: NT-proBNP (BNP-Adult 18+) 1380 pg/mL (<450); Troponin I < 0.012 ng/mL (0.01-0.034)
[2021-01-09 05:52] LABS: Thyroid Stimulating Hormone 1.61 uIU/mL (0.47-4.68)
[2021-01-09 06:10] LABS: HEMOLYSIS < 15 (0-50); Iron 11 ug/dL (49-181)
[2021-01-09 06:21] LABS: Percent Iron Saturation 3 % (20-50); Total Iron Binding Capacity 354 ug/dL (261-462); Transferrin 281 mg/dL (206-381)
[2021-01-09 06:28] LABS: Procalcitonin 0.13 ng/mL (<0.5)
[2021-01-09] MEDS: ALBUTEROL/IPRATROPIUM 3 ML AMPUL INH ×3 (07:49→20:13)
[2021-01-09] MEDS: FLUTICASONE/SALMETEROL 500/50 60 PUFF DISKUS INH ×2 (07:49→20:13)
[2021-01-09] MEDS: FUROSEMIDE 20 MG TABLET PO (08:18)
[2021-01-09] MEDS: guaiFENesin ER 600 MG TAB PO ×2 (08:18→20:56)
[2021-01-09] MEDS: ENOXAPARIN 40 MG/0.4 ML SYRINGE 80 MG SUBCUT ×2 (08:18→20:57)
[2021-01-09] MEDS: ASPIRIN 325 MG TABLET PO (08:18)
[2021-01-09] MEDS: dilTIAZem CD 180 MG CAP PO (08:18)
[2021-01-09] MEDS: DOCUSATE 100 MG CAPSULE PO ×2 (08:18→20:56)
[2021-01-09] MEDS: predniSONE 20 MG TABLET 40 MG PO (08:18)
--- NOTE | 2021-01-09 10:24 | PC.NURSE ---
AM shift Pt tachy at start of shift, gave PO Diltazem with some improvement. Metoprolol stopped, plan to start Dig per Dr Love
--- NOTE | 2021-01-09 11:27 | DIET.PN ---
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 HT: 172.7cm WT: 74kg BMI: 24.8 Labs:hgb 8.0 L, NTProBNP 1380 H Pt reports many changes recently leading to quick prep meals and more take out meals than at baseline. Pts daughter and family moved in with him as he could not keep up on house chores by himself. Pt reports mostly eating bologna sandwiches with pickles and cheese or meat lover pizzas as they are too busy getting settled to cook meals. Pt reports desire for nutrition recommendations for his health as well as his daughters. Nutrition Diagnosis: excessive sodium intake r/t nutrition related knowledge deficit aeb pt admitted c hypoxemic respiratory failure and new onset CHF, pt diuresed of 2L reporting feeling better c less SOB, pt reports not salting at the table but eating high sodium processed meats, pickles, cheese, and bread products. Interventions: 1. 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 Provided pt MNT handout with preferred foods and foods to avoid. Pt has difficulty reading so will bring home and tell daughter that this advice is to be followed for the household. Pt open to having high pro, low sodium snacks available for snacking so he can avoid snacking on bologna. Pt willing to avoid meat toppings on pizza. He and his daughter will collaborate on shopping list using approved food list. Diet Order: low sodium EER: 2g sodium Monitoring/Evaluations: as needed
[2021-01-09] MEDS: DIGOXIN 500 MCG/2 ML AMPUL 250 MCG IV ×2 (13:05→17:15)
--- NOTE | 2021-01-09 14:35 | P.PN_ITS ---
Subjective Subjective Interval history: He is still coughing and feeling short of breath but it is improved from last night. No new complaints. Exam Vital Signs (past 8 hours): - 01/09/21 06:36 01/09/21 07:50 01/09/21 08:00 Temperature 98.3 F Pulse Rate 110 H 148 H 115 H Respiratory Rate 22 32 H 16 Blood Pressure 129/73 125/68 Pulse Oximetry 92 99 01/09/21 12:00 01/09/21 13:05 01/09/21 13:06 Temperature 97.7 F Pulse Rate 109 H 118 H 112 H Respiratory Rate 20 16 Blood Pressure 106/64 106/64 Pulse Oximetry 99 98 Oxygen Delivery Method Nasal Cannula Oxygen Flow Rate 2 Narrative Exam Narrative: GENERAL APPEARANCE: no acute distress HEENT: PERRLA, mucous membranes are moist and pink. NECK/THYROID: neck supple, no JVD, trachea midline. SKIN: no lesions noted HEART: Irregularly irregular, tachycardic, with no murmurs LUNGS: scattered wheezes and coarse cough on inspiration ABDOMEN: Soft, no distention, no abdominal tenderness, no organomegaly, active bowel tones. EXTREMITIES: moves all extremities, strength is 5/5 and symmetrical, no edema noted NEUROLOGIC: AAO3, hard of hearing PSYCH: pleasant mood Objective Labs Result Diagrams: 01/09/21 04:26 01/09/21 04:26 Labs: Laboratory Results - last 24 hr 01/08/21 01/08/21 01/08/21 17:35 17:35 17:35 WBC 9.5 RBC 3.55 L Hgb 8.4 L Hct 27.4 L MCV 77.1 L MCH 23.6 L MCHC 30.6 RDW 20.0 H Plt Count 399 Neut % (Auto) 78.7 H Lymph % (Auto) 10.5 L Dewey % (Auto) 10.1 Eos % (Auto) 0.3 L Baso % (Auto) 0.4 Neut # (Auto) 7500 H Lymph # (Auto) 1000 L Dewey # (Auto) 1000 H Eos # (Auto) 0 Baso # (Auto) 0 PT INR Sodium 141 Potassium 4.7 Chloride 107 Carbon Dioxide 28 BUN 17 Creatinine 0.99 Estimated GFR > 60.0 BUN/Creatinine Ratio 17.2 Glucose 94 Lactate 1.0 Calcium 8.8 Magnesium Iron TIBC % Saturation Transferrin Total Bilirubin 0.1 L AST 25 ALT 22 Alkaline Phosphatase 83 Total Creatine Kinase CK-MB (CK-2) CK-MB (CK-2) Rel Index Troponin I NT-Pro-B Natriuret Pep 1350 H Total Protein 6.5 Albumin 3.7 Globulin 2.8 Albumin/Globulin Ratio 1.3 Triglycerides Cholesterol LDL Cholesterol, Calc HDL Cholesterol Procalcitonin TSH Nasal Screen MRSA (PCR) Chlamy pneumoniae PCR Adenovirus (PCR) B. pertussis DNA (PCR) B.parapertussis DNA PCR Coronavirus OC43 (PCR) Coronavirus HKU1 (PCR) Coronavirus 229E (PCR) SARS-CoV-2 (PCR) Coronavirus NL63 (PCR) Human Metapneumovir PCR Influenza Type A (PCR) Influenza Type B (PCR) M. pneumoniae (PCR) Parainfluenza 1 (PCR) Parainfluenza 2 (PCR) Parainfluenza 3 (PCR) Parainfluenza 4 (PCR) RSV (PCR) Entero/Rhino (PCR) 01/08/21 01/08/21 01/08/21 17:35 18:09 18:09 WBC RBC Hgb Hct MCV MCH MCHC RDW Plt Count Neut % (Auto) Lymph % (Auto) Dewey % (Auto) Eos % (Auto) Baso % (Auto) Neut # (Auto) Lymph # (Auto) Dewey # (Auto) Eos # (Auto) Baso # (Auto) PT 11.3 INR 1.0 Sodium Potassium Chloride Carbon Dioxide BUN Creatinine Estimated GFR BUN/Creatinine Ratio Glucose Lactate Calcium Magnesium Iron TIBC % Saturation Transferrin Total Bilirubin AST ALT Alkaline Phosphatase Total Creatine Kinase 125 CK-MB (CK-2) 3.28 H CK-MB (CK-2) Rel Index 2.6 Troponin I < 0.012 NT-Pro-B Natriuret Pep Total Protein Albumin Globulin Albumin/Globulin Ratio Triglycerides Cholesterol LDL Cholesterol, Calc HDL Cholesterol Procalcitonin 0.10 TSH Nasal Screen MRSA (PCR) Chlamy pneumoniae PCR Adenovirus (PCR) B. pertussis DNA (PCR) B.parapertussis DNA PCR Coronavirus OC43 (PCR) Coronavirus HKU1 (PCR) Coronavirus 229E (PCR) SARS-CoV-2 (PCR) Coronavirus NL63 (PCR) Human Metapneumovir PCR Influenza Type A (PCR) Influenza Type B (PCR) M. pneumoniae (PCR) Parainfluenza 1 (PCR) Parainfluenza 2 (PCR) Parainfluenza 3 (PCR) Parainfluenza 4 (PCR) RSV (PCR) Entero/Rhino (PCR) 01/08/21 01/08/21 01/08/21 18:09 19:25 22:13 WBC RBC Hgb Hct MCV MCH MCHC RDW Plt Count Neut % (Auto) Lymph % (Auto) Dewey % (Auto) Eos % (Auto) Baso % (Auto) Neut # (Auto) Lymph # (Auto) Dewey # (Auto) Eos # (Auto) Baso # (Auto) PT INR Sodium Potassium Chloride Carbon Dioxide BUN Creatinine Estimated GFR BUN/Creatinine Ratio Glucose Lactate Calcium Magnesium 2.4 H Iron TIBC % Saturation Transferrin Total Bilirubin AST ALT Alkaline Phosphatase Total Creatine Kinase CK-MB (CK-2) CK-MB (CK-2) Rel Index Troponin I NT-Pro-B Natriuret Pep Total Protein Albumin Globulin Albumin/Globulin Ratio Triglycerides Cholesterol LDL Cholesterol, Calc HDL Cholesterol Procalcitonin TSH Nasal Screen MRSA (PCR) Negative for mrsa Chlamy pneumoniae PCR Adenovirus (PCR) B. pertussis DNA (PCR) B.parapertussis DNA PCR Coronavirus OC43 (PCR) Coronavirus HKU1 (PCR) Coronavirus 229E (PCR) SARS-CoV-2 (PCR) Negative Coronavirus NL63 (PCR) Human Metapneumovir PCR Influenza Type A (PCR) Influenza Type B (PCR) M. pneumoniae (PCR) Parainfluenza 1 (PCR) Parainfluenza 2 (PCR) Parainfluenza 3 (PCR) Parainfluenza 4 (PCR) RSV (PCR) Entero/Rhino (PCR) 01/08/21 01/09/21 01/09/21 22:13 04:26 04:26 WBC 9.5 RBC 3.35 L Hgb 8.0 L Hct 25.9 L MCV 77.2 L MCH 23.7 L MCHC 30.7 RDW 19.8 H Plt Count 373 Neut % (Auto) 73.8 Lymph % (Auto) 10.1 L Dewey % (Auto) 13.6 Eos % (Auto) 1.6 L Baso % (Auto) 0.9 Neut # (Auto) 7000 Lymph # (Auto) 1000 L Dewey # (Auto) 1300 H Eos # (Auto) 100 Baso # (Auto) 100 PT INR Sodium 139 Potassium 3.8 Chloride 102 Carbon Dioxide 33 H BUN 18 Creatinine 1.10 Estimated GFR > 60.0 BUN/Creatinine Ratio 16.4 Glucose 92 Lactate Calcium 8.6 Magnesium 2.1 Iron TIBC % Saturation Transferrin Total Bilirubin AST ALT Alkaline Phosphatase Total Creatine Kinase CK-MB (CK-2) CK-MB (CK-2) Rel Index Troponin I < 0.012 NT-Pro-B Natriuret Pep 1380 H Total Protein Albumin Globulin Albumin/Globulin Ratio Triglycerides 63 Cholesterol 128 L LDL Cholesterol, Calc 53 HDL Cholesterol 62 H Procalcitonin TSH Nasal Screen MRSA (PCR) Chlamy pneumoniae PCR Not detected Adenovirus (PCR) Not detected B. pertussis DNA (PCR) Not detected B.parapertussis DNA PCR Not detected Coronavirus OC43 (PCR) Not detected Coronavirus HKU1 (PCR) Not detected Coronavirus 229E (PCR) Not detected SARS-CoV-2 (PCR) Not detected Coronavirus NL63 (PCR) Not detected Human Metapneumovir PCR Not detected Influenza Type A (PCR) Not detected Influenza Type B (PCR) Not detected M. pneumoniae (PCR) Not detected Parainfluenza 1 (PCR) Not detected Parainfluenza 2 (PCR) Not detected Parainfluenza 3 (PCR) Not detected Parainfluenza 4 (PCR) Not detected RSV (PCR) Not detected Entero/Rhino (PCR) Detected H 01/09/21 01/09/21 01/09/21 04:26 04:26 04:26 WBC RBC Hgb Hct MCV MCH MCHC RDW Plt Count Neut % (Auto) Lymph % (Auto) Dewey % (Auto) Eos % (Auto) Baso % (Auto) Neut # (Auto) Lymph # (Auto) Dewey # (Auto) Eos # (Auto) Baso # (Auto) PT INR Sodium Potassium Chloride Carbon Dioxide BUN Creatinine Estimated GFR BUN/Creatinine Ratio Glucose Lactate Calcium Magnesium Iron 11 L TIBC 354 % Saturation 3 L Transferrin 281 Total Bilirubin AST ALT Alkaline Phosphatase Total Creatine Kinase CK-MB (CK-2) CK-MB (CK-2) Rel Index Troponin I NT-Pro-B Natriuret Pep Total Protein Albumin Globulin Albumin/Globulin Ratio Triglycerides Cholesterol LDL Cholesterol, Calc HDL Cholesterol Procalcitonin 0.13 TSH 1.61 Nasal Screen MRSA (PCR) Chlamy pneumoniae PCR Adenovirus (PCR) B. pertussis DNA (PCR) B.parapertussis DNA PCR Coronavirus OC43 (PCR) Coronavirus HKU1 (PCR) Coronavirus 229E (PCR) SARS-CoV-2 (PCR) Coronavirus NL63 (PCR) Human Metapneumovir PCR Influenza Type A (PCR) Influenza Type B (PCR) M. pneumoniae (PCR) Parainfluenza 1 (PCR) Parainfluenza 2 (PCR) Parainfluenza 3 (PCR) Parainfluenza 4 (PCR) RSV (PCR) Entero/Rhino (PCR) [facility] Medical History Aneurysm Chronic cough COPD (chronic obstructive pulmonary disease) Hearing loss History of emphysema Oxygen dependent Sleep apnea Surgical History History of bladder surgery Family History (Updated 01/09/21 @ 03:28 by BOB Ni) Father No significant medical problems Mother Medical history unknown Social History household members: children Smoking Status: Former smoker Tobacco: How many years used: 30 Smokeless tobacco user: chewing tobacco (former ) quit status: not considering quitting (Daughter is weaning pt off ) alcohol intake: former substance use type: does not use Assessment & Plan Assessment & Plan narrative: 80-year-old male patient with past medical history emphysema on home O2, chronic cough, aneurysm, obstructive sleep apnea and hearing loss who presents with shortness of breath, cough, and volume overload consistent with acute copd exacerbation and cHF exacerbation. 1. Acute on chronic respiratory failure with hypoxemia, present on admission, active. -upon arrival the patient is tachypneic at 25 with an oxygen saturation of 98% on 3 L per minute nasal cannula, using conversion tables equates to a PF ratio of 350. -patient with marked pronounced expiratory phase and barrel chest. -SOB is multifactorial: Underlying severe emphysema and is home O2 dependent. Bronchiectasis with bacterial versus viral pneumonia. New finding of atrial fibrillation controlled rate. New finding of elevated proBNP rhinovirus on PCR -requested respiratory therapy to consult evaluate and treat. 2. Acute COPD exacerbation, home O2 dependent, active. -patient with pronounced expiratory wheezing and diminished breath sounds. -ordered Atrovent and ipratropium nebulizer twice daily -order albuterol nebulizer every 2 hours as needed for shortness of breath or wheezing. -ordered prednisone 40 mg p.o. daily -will continue the patient's home regimen of fluticasone salmeterol 500-50 1 inhalation twice daily. -requested RT to consult evaluate and treat. 3. Viral pneumonia, with bronchiectasis, acute, present on admission, active. -the patient has had increase coughing that is productive for green sputum. -CT identifies bilateral bronchial wall thickening be consistent with an infective process with areas of mucous plugging without acute consolidations. -white count is 9.5 with mildly elevated neutrophils at 7500 and elevated monocytes at with 1000. Procalcitonin is 0.1 lactic acid is 1.0. -stop levaquin and will order azithromycin -order guaifenesin 600 mg b.i.d. 4. Congestive heart failure, diastolic, present on admission, acute. -the patient does not have a prior diagnosis of CHF however is found to have an elevated proBNP of 1350. 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 -cardiac enzymes and troponin are negative. -the patient received Lasix 20 mg in the emergency department with diuresis of an estimated 1 L. Will continue Lasix 20 IV mg BID. -follow chemistries for electrolytes and recheck BMP. 5. Atrial fibrillation, with RVR, present on admission, active. -12 lead EKG identifies atrial fibrillation with a ventricular rate of 87 without ectopy or block and no evidence of infarct. No previous documentation of atrial fibrillation with prior EKG finding sinus rhythm with PACs. -potassium level is 4.7 and magnesium is 2.4. -patient takes diltiazem 180 mg extended release daily which is most likely assisting with rate control. -ordered digoxin load due to rapid rate -ordered echocardiogram 6. Acute on chronic anemia, microcytic hypochromic, present on admission, active -initial hemoglobin 8.4, now 8.0. The patient's last available hemoglobin was 11.1 in July of 2020 -will obtain iron profile. -ordered stool guaiac daily for 3 days. VTE prophylaxis: Lovenox at 1 milligram/kilogram. IV fluid: None Diet: Heart healthy, 2 g low-sodium. Code status: Patient states wish to be full code and identifies his daughter Nita Go to be his surrogate decision maker. Quality VTE Deep Vein Thrombosis/Pulmonary Embolism Present on Admission: No
[2021-01-09] MEDS: AZITHROMYCIN 500 MG in DEXTROSE 5% IN WATER 250 ML IV (14:44)
[2021-01-09] MEDS: FERROUS SULFATE 325 MG TABLET PO (17:16)
[2021-01-09] MEDS: ATORVASTATIN 20 MG TABLET 10 MG PO (20:56)
[2021-01-09] MEDS: FUROSEMIDE 20 MG/2 ML VIAL IV (20:58)
[2021-01-10] VITALS (14 sets, daily range): BP systolic 106–128; BP diastolic 54–72; PULSE 51–130; RESP 20–28; TEMP 36.2–36.6; O2SAT 93–99
[2021-01-10 06:00] LABS: Hematocrit 25.7 % (41-53); Hemoglobin 7.9 g/dL (13.5-17.5); Mean Corpuscular HGB Conc 30.6 % (30-36); Mean Corpuscular Hemoglobin 23.4 PG (26-34); Mean Corpuscular Volume 76.3 fL (80-100); Platelet Count 365 X10^3/uL (150-400); Red Blood Cell Count 3.36 X10^6/uL (4.5-5.9); Red Cell Distribution Width 19.7 % (11.6-14.8); White Blood Cell Count 8.7 X10^3/uL (4.5-11.0)
[2021-01-10 06:09] LABS: BUN Creatinine Ratio 20.8 (6-22); Blood Urea Nitrogen 25 mg/dL (9-20); Calcium 8.9 mg/dL (8.4-10.2); Carbon Dioxide 33 mmol/L (22-32); Chloride 102 mmol/L (98-107); Estimated Glomerular Filt Rate 58.6 mL/min (>60); Glucose 87 mg/dL (80-110); HEMOLYSIS < 15 (0-50); Potassium 3.7 mmol/L (3.4-5.1); Sodium 139 mmol/L (137-145)
--- NOTE | 2021-01-10 06:13 | PC.NURSE ---
Studio Hand Note-Patient remains in A-fib, rate 90s at rest, does increase to 120s-130s while sitting at side of bed to void, diuresed 1300ml clear pale urine overnight. SpO2 >97% on 2L, RR 20s, audible wheezes, rhonchi/wheeze ausculated, moist cough, denies dyspnea. Droplet precautions.
[2021-01-10] MEDS: FLUTICASONE/SALMETEROL 500/50 60 PUFF DISKUS INH ×2 (08:00→18:55)
[2021-01-10] MEDS: ALBUTEROL/IPRATROPIUM 3 ML AMPUL INH ×4 (08:01→22:12)
[2021-01-10] MEDS: ENOXAPARIN 40 MG/0.4 ML SYRINGE 80 MG SUBCUT (08:21)
[2021-01-10] MEDS: DOCUSATE 100 MG CAPSULE PO ×2 (08:22→20:25)
[2021-01-10] MEDS: FERROUS SULFATE 325 MG TABLET PO ×2 (08:22→17:30)
[2021-01-10] MEDS: dilTIAZem CD 180 MG CAP PO (08:22)
[2021-01-10] MEDS: guaiFENesin ER 600 MG TAB PO ×2 (08:22→20:26)
[2021-01-10] MEDS: FUROSEMIDE 20 MG TABLET PO (08:22)
[2021-01-10] MEDS: ASPIRIN 325 MG TABLET PO (08:22)
[2021-01-10] MEDS: predniSONE 20 MG TABLET 40 MG PO (08:22)
[2021-01-10] MEDS: SODIUM CHLORIDE 0.9% FLUSH 10 ML IV ×2 (08:23→20:27)
[2021-01-10] MEDS: dilTIAZem 30 MG TABLET 60 MG PO ×2 (09:31→20:30)
[2021-01-10] MEDS: DIGOXIN 0.125 MG TABLET PO (09:32)
--- NOTE | 2021-01-10 13:35 | P.PN_ITS ---
Subjective Subjective Interval history: He still thinks his breathing is at his baseline, but he is clearly visibly short of breath, and audibly wheezing from across the room. He has no new complaints. Exam Vital Signs (past 8 hours): - 01/10/21 08:00 01/10/21 08:01 01/10/21 09:31 Temperature 97.3 F L Pulse Rate 130 H 93 H 92 H Respiratory Rate 28 H 24 Blood Pressure 126/72 Pulse Oximetry 93 98 01/10/21 09:32 01/10/21 13:00 01/10/21 13:13 Temperature 97.3 F L Pulse Rate 93 H 51 L 73 Respiratory Rate 20 23 Blood Pressure 111/54 L Pulse Oximetry 95 98 Oxygen Delivery Method Nasal Cannula Oxygen Flow Rate 2 Narrative Exam Narrative: ENERAL APPEARANCE: no acute distress HEENT: PERRLA, mucous membranes are moist and pink. NECK/THYROID: neck supple, no JVD, trachea midline. SKIN: no lesions noted HEART: Irregularly irregular, tachycardic, with no murmurs LUNGS: air movement is improved, wheezes throughout have increased ABDOMEN: Soft, no distention, no abdominal tenderness, no organomegaly, active bowel tones. EXTREMITIES: moves all extremities, strength is 5/5 and symmetrical, no edema noted NEUROLOGIC: AAO3, hard of hearing PSYCH: pleasant mood Objective Labs Result Diagrams: 01/10/21 05:43 01/10/21 05:43 Labs: Laboratory Results - last 24 hr 01/10/21 01/10/21 05:43 05:43 WBC 8.7 RBC 3.36 L Hgb 7.9 L Hct 25.7 L MCV 76.3 L MCH 23.4 L MCHC 30.6 RDW 19.7 H Plt Count 365 Sodium 139 Potassium 3.7 Chloride 102 Carbon Dioxide 33 H BUN 25 H Creatinine 1.20 Estimated GFR 58.6 L BUN/Creatinine Ratio 20.8 Glucose 87 Calcium 8.9 PFSH Medical History Aneurysm Chronic cough COPD (chronic obstructive pulmonary disease) Hearing loss History of emphysema Oxygen dependent Sleep apnea Surgical History History of bladder surgery Family History (Updated 01/09/21 @ 03:28 by BOB Ni) Father No significant medical problems Mother Medical history unknown Social History household members: children Smoking Status: Former smoker Tobacco: How many years used: 30 Smokeless tobacco user: chewing tobacco (former ) quit status: not considering quitting (Daughter is weaning pt off ) alcohol intake: former substance use type: does not use Assessment & Plan Assessment & Plan narrative: 80-year-old male patient with past medical history emphysema on home O2, chronic cough, aneurysm, obstructive sleep apnea and hearing loss who presents with shortness of breath, cough, and volume overload consistent with acute copd exacerbation and cHF exacerbation. 1. Acute on chronic respiratory failure with hypoxemia, present on admission, active. -upon arrival the patient is tachypneic at 25 with an oxygen saturation of 98% on 3 L per minute nasal cannula, using conversion tables equates to a PF ratio of 350. -patient with marked pronounced expiratory phase and barrel chest. -SOB is multifactorial: Underlying severe emphysema and is home O2 dependent. Bronchiectasis with rhinovirus on PCR New finding of atrial fibrillation controlled rate. -requested respiratory therapy to consult evaluate and treat. 2. Acute COPD exacerbation, home O2 dependent, active. -patient with pronounced expiratory wheezing and diminished breath sounds. -increased duonebs q4 -order albuterol nebulizer every 2 hours as needed for shortness of breath or wheezing. -ordered prednisone 40 mg p.o. daily -will continue the patient's home regimen of fluticasone salmeterol 500-50 1 inhalation twice daily. -requested RT to consult evaluate and treat. 3. Viral pneumonia, with bronchiectasis, acute, present on admission, active. -the patient has had increase coughing that is productive for green sputum. -CT identifies bilateral bronchial wall thickening be consistent with an infective process with areas of mucous plugging without acute consolidations. -white count is 9.5 with mildly elevated neutrophils at 7500 and elevated monocytes at with 1000. Procalcitonin is 0.1 lactic acid is 1.0. -stop levaquin and will order azithromycin -order guaifenesin 600 mg b.i.d. 4. Congestive heart failure, diastolic, present on admission, acute. -the patient does not have a prior diagnosis of CHF however is found to have an elevated proBNP of 1350. 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 -cardiac enzymes and troponin are negative. -the patient received Lasix 20 mg IV BID and now appears slightly dry, so will decreased to 20mg lasix PO daily -follow chemistries for electrolytes and recheck BMP. 5. Atrial fibrillation, with RVR, present on admission, active. -12 lead EKG identifies atrial fibrillation with a ventricular rate of 87 wit hout ectopy or block and no evidence of infarct. No previous documentation of atrial fibrillation with prior EKG finding sinus rhythm with PACs. -potassium level is 4.7 and magnesium is 2.4. -patient takes diltiazem 180 mg extended release daily, will increase dose to 60mg q6 -ordered digoxin load due to rapid rate -ordered echocardiogram which demonstrated preserved EF -will need to start anticoagulation when cbc stabilizes 6. Acute on chronic anemia, microcytic hypochromic, present on admission, active -initial hemoglobin 8.4, now 7.9. The patient's last available hemoglobin was 11.1 in July of 2020 -will obtain iron profile. -ordered stool guaiac daily for 3 days. VTE prophylaxis: Lovenox at SC dosing IV fluid: None Diet: Heart healthy, 2 g low-sodium. Code status: Patient states wish to be full code and identifies his daughter Nita Go to be his surrogate decision maker. Quality VTE Deep Vein Thrombosis/Pulmonary Embolism Present on Admission: No
[2021-01-10] MEDS: AZITHROMYCIN 500 MG in DEXTROSE 5% IN WATER 250 ML IV (13:58)
--- NOTE | 2021-01-10 15:05 | CM.DPNOTE ---
Patient is 80 yo with Medicare and for Life insurance. Patient present at hospital due to SOB. Per MD and RN, at baseline patient is wheezing and in need of oxygen. Patient is currently on 2 Ls of oxygen and uses oxygen at home. Patient has orders for RT. Patient resides with daughter and 3 yo grandson. FOAM RUBBER MIXER attempted to meet at bedside with patient several times but patient was sleeping. FOAM RUBBER MIXER contacts daughter Nita ( ). Nita reports that patient is in need of HH aide and she requested this with patient's PCP a few months ago. Nita reports that patient has anxiety about getting in the shower. Nita reports that patient is on oxygen at home and had Hospice services 2 years ago but has been in good health until now. FOAM RUBBER MIXER discussed HH and provided options of HH and daughter Nita did not report a preference. Family lives in [place]. FOAM RUBBER MIXER contacts [facility] and leaves VM and faxes referral. FOAM RUBBER MIXER received signed F2F for RN, PT, HH aide. and requested order for HH. Plan: follow for PT when appropriate, d/c home with HH. ALLISON Cowart Discharge Planning/Care Management CM Discharge Assessment Start: 01/10/21 15:02 Freq: Status: Active Protocol: Document 01/10/21 15:02 LN (Rec: 01/10/21 15:05 LN [id number]) Discharge Planning Assessment Assigned Coach Cleaner ALLISON Olivarez Advance Directives? No History Provided By Patient Has Patient been admitted in last 30 No days? Prior Living Arrangements House Household Members children Type of transporation used prior to Relies on Others admit Independent with ADL's Yes Is patient alert and oriented? Yes Needs Assistance With Bathing Patient/Family Preference Home with Home Health Discharge Plan Home with Home Health Community Services Physical Therapy,Home Health Aid,Home Health Nurse If patient plan is home with home health Yes : Has signed face to face form been completed? Medicare Choice List Provided Yes SNF/HH Preference FOAM RUBBER MIXER provided list of options to daughter and she did not have a preference. Please Provide Date Initial DC 01/10/21 Assessment Was Performed
[2021-01-10] MEDS: ATORVASTATIN 20 MG TABLET 10 MG PO (20:26)
[2021-01-11] VITALS (8 sets, daily range): BP systolic 110–116; BP diastolic 57–67; PULSE 80–104; RESP 18–28; TEMP 36.3–36.6; O2SAT 95–98
[2021-01-11] MEDS: ALBUTEROL/IPRATROPIUM 3 ML AMPUL INH ×4 (02:03→14:01)
[2021-01-11] MEDS: dilTIAZem 30 MG TABLET 60 MG PO ×3 (04:02→14:45)
[2021-01-11] MEDS: FLUTICASONE/SALMETEROL 500/50 60 PUFF DISKUS INH (06:37)
[2021-01-11] MEDS: FUROSEMIDE 20 MG TABLET PO (09:02)
[2021-01-11] MEDS: predniSONE 20 MG TABLET 40 MG PO (09:02)
[2021-01-11] MEDS: FERROUS SULFATE 325 MG TABLET PO (09:02)
[2021-01-11] MEDS: ENOXAPARIN 40 MG/0.4 ML SYRINGE SUBCUT (09:02)
[2021-01-11] MEDS: guaiFENesin ER 600 MG TAB PO (09:02)
[2021-01-11] MEDS: ASPIRIN 325 MG TABLET PO (09:02)
[2021-01-11] MEDS: DOCUSATE 100 MG CAPSULE PO (09:02)
[2021-01-11] MEDS: SODIUM CHLORIDE 0.9% FLUSH 10 ML IV (09:03)
[2021-01-11 09:04] LABS: Hematocrit 28.1 % (41-53); Hemoglobin 8.4 g/dL (13.5-17.5); Mean Corpuscular Hemoglobin 23.1 PG (26-34); Platelet Count 389 X10^3/uL (150-400); Red Blood Cell Count 3.65 X10^6/uL (4.5-5.9); Red Cell Distribution Width 19.9 % (11.6-14.8); White Blood Cell Count 11.6 X10^3/uL (4.5-11.0)
[2021-01-11 09:19] LABS: BUN Creatinine Ratio 18.8 (6-22); Blood Urea Nitrogen 22 mg/dL (9-20); Carbon Dioxide 33 mmol/L (22-32); Chloride 102 mmol/L (98-107); Estimated Glomerular Filt Rate > 60.0 mL/min (>60); Glucose 118 mg/dL (80-110); HEMOLYSIS < 15 (0-50); Sodium 140 mmol/L (137-145)
[2021-01-11] MEDS: AZITHROMYCIN 500 MG in DEXTROSE 5% IN WATER 250 ML IV (13:29)
--- NOTE | 2021-01-11 13:42 | CM.DPC ---
Addendum entered by ALLISON Fallon 01/11/21 14:23: ADD: Per RN, Dtr received SW msg and called back and will be bedside to provide transport for pt home today around 1530 and agreeable with d/c plan and HH still. BF Original Note: DCP Discharge home w/ HH Per MD, pt has made significant progress with his respirations and oxygen levels and medicaly stable to d/c home with HH today. F2F previously signed yesterday. SW called [facility] and left msg to update on pt d/c home today and faxed F2F, MD orders, and prog note as d/c summary not yet available. 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 DHIRAJ called twice and left a msg with update on pt d/c today with [facility] and brochure left in d/c packet along with copy of the Medicare Message previously signed and requested she call back with update on estimated arrival for transporting pt home so staff can have pt ready for d/c when she gets here. Plan: Patient to d/c home today via family POV and new [facility] to open pt to service after d/c. ALLISON Fallon
--- NOTE | 2021-01-12 00:05 | PM.DS.1 ---
History of Present Illness History of Present Illness Chief complaint: Cough Narrative: Per Dami and P from Alexis Palacio: Mr. Ramon Mosquera is a 80-year-old male patient with past medical history emphysema on home O2, chronic cough, aneurysm, obstructive sleep apnea and hearing loss who presents to the ER via EMS with complaints of shortness of breath cough. The patient states he has a chronic cough however today he is coughing up thick green sputum. He states he has had progressive dyspnea and coughing over the last 3 days. He describes minimal activity tolerance due to the dyspnea. He denies complaints of chest pain, fevers or chills or rigors. He has had no known sick contacts. The patient is on chronic home O2 and has continued to smoke per the medical record however the patient states he quit years ago. He has a 50 pack year smoking history. The patient additionally has complained of leg swelling but cannot state whether it is been worse recently. Patient denies complaints of epigastric or abdominal pain and has had no nausea vomiting. Reports no change in his bowel habits MsTiana last bowel movement yesterday morning. He reports no difficulty urinating. Upon arrival the ER patient has a heart rate in 94, blood pressure of 134/79, respiratory rate of 25 saturating 98% on 3 L nasal cannula. Chest x-ray is obtained which finds note COPD without acute consolidations. A CTA is obtained which finds no pulmonary embolism, severe central lobar emphysema, bilateral bronchial wall thickening with scattered mucous plugging consistent with bronchiolitis. On 12 lead EKG he is found to be in atrial fibrillation with a ventricular rate of 87 without ectopy or block. Prior EKG identified sinus rhythm with PACs. On laboratory analysis the patient has white count of 9.5 with neutrophils of 7500 and monocytes 1000, hemoglobin of 8.4 and hematocrit of 27.4 with platelets of 399. He has a PT of 11.3 in a INR of 1.0. His electrolytes within normal range with a potassium of 4.7 BUN of 17 and creatinine 0.99. His nonfasting glucose is 99. His liver functions are within normal range she has an albumin of 3.7. His lactic acid is 1.0 with procalcitonin is 0.10. His total CK is 125 with CK-MB of 328 for an index of 2.6. His troponin is negative at less than 0.012. His proBNP is elevated at 1350. His COVID screening is negative. In the ER the patient received Lasix 20 mg. Requested magnesium level which was found to be 2.4 and respiratory PCR panel. The patient is admitted to the hospital for acute on chronic respiratory failure and new atrial fibrillation. Discharge Providers Provider Date of admission: 01/08/21 21:45 Discharge Date: 01/11/21 Primary care physician: Jose Luis Hudson DO Consults: 01/08/21 21:48 Consult to Respiratory Therapy Evaluate & Treat Comment: Severe COPD, bronchiolitis, new onset CHF Physician Instructions: Evaluate and treat 01/08/21 21:53 Consult to Dietitian, Adult Routine Comment: Reason For Exam: New onset AFib, CHF Consult to Discharge Planning Routine Comment: 01/10/21 15:20 Consult to Home Health Routine Comment: patient has COPD Reason For Exam: set up HH for RN, HH aide, and PT Discharge provider: Chato Ragsdale MD Summary Hospital Course Discharge Diagnosis: 1. Acute on chronic respiratory failure with hypoxemia 2. Acute COPD exacerbation 3. Viral pneumonia, Rhinovirus 4. Acute CHF exacerbation, preserved EF 5. Afib RVR 6. Iron deficiency anemia 7. HTN Hospital Course: Mr. Mosquera was admitted with shortness of breath found to have acute on chronic respiratory failure. He was noted to have initially very poor air movement. He improved greatly with ATC nebulizers, and chest physiotherapy. He was noted to have significant wheezes and was started on prednisone and azithromycin. His exacerbating event was rhinovirus which was positive on PCR. He was also noted to be in new atrial fibrillation from likely the COPD exacerbation. His diltiazem was increased and he was started on digoxin, but with improvement he intermittently in sinus rhythm. He was started on apixaban. Finally he did have a mild CHF exacerbation and was diuresed with lasix. His ECHO showed preserved EF. His last issue was low hemoglobin. He had low iron levels and was started on ferrous sulfate. He should follow up with PCP to monitor this and consider other possible workups for anemia. Discharge time 35 minutes Status at Discharge Cognitive/behavioral status at discharge: oriented Functional status at discharge: independent ambulation Overall status at discharge: patient is progressing back to baseline Exam Vital Signs (past 8 hours): Oxygen Delivery Method Nasal Cannula Oxygen Flow Rate 1 Narrative Exam Narrative: GENERAL APPEARANCE: no acute distress HEENT: PERRLA, mucous membranes are moist and pink. NECK/THYROID: neck supple, no JVD, trachea midline. SKIN: no lesions noted HEART: Irregularly irregular, with no murmurs LUNGS: air movement is improved, wheezes now absent, clear lungs ABDOMEN: Soft, no distention, no abdominal tenderness, no organomegaly, active bowel tones. EXTREMITIES: moves all extremities, strength is 5/5 and symmetrical, no edema noted NEUROLOGIC: AAO3, hard of hearing PSYCH: pleasant mood Objective Labs Result Diagrams: 01/11/21 08:55 01/11/21 08:55 Labs: Laboratory Results - last 24 hr 01/11/21 01/11/21 08:55 08:55 WBC 11.6 H RBC 3.65 L Hgb 8.4 L Hct 28.1 L MCV 77.0 L MCH 23.1 L MCHC 30.0 RDW 19.9 H Plt Count 389 Sodium 140 Potassium 4.0 Chloride 102 Carbon Dioxide 33 H BUN 22 H Creatinine 1.17 Estimated GFR > 60.0 BUN/Creatinine Ratio 18.8 Glucose 118 H Calcium 9.0 PFSH Medical History Aneurysm Chronic cough COPD (chronic obstructive pulmonary disease) Hearing loss History of emphysema Oxygen dependent Sleep apnea Surgical History History of bladder surgery Family History (Updated 01/09/21 @ 03:28 by BOB Ni) Father No significant medical problems Mother Medical history unknown Social History household members: children Smoking Status: Former smoker Tobacco: How many years used: 30 Smokeless tobacco user: chewing tobacco (former ) quit status: not considering quitting (Daughter is weaning pt off ) alcohol intake: former substance use type: does not use Discharge Plan Discharge Plan Patient Disposition: Home Provider Discharge Comment: Mr. Mosquera was admitted with shortness of breath. He was found to have rhinovirus. He had a COPD exacerbation from this. He got antibiotics and steroids in the hospital. He was also found to be in atrial fibrillation, he was continued on diltiazem but at a higher dose, and started on digoxin to control his heart rate. He was also started on a blood thinner to prevent strokes. He had a low blood count in the hospital, and a low iron level. He was started on iron, and should consider having further workup with possible colonoscopy for this as an outpatient. His aspirin dose should be decreased to baby aspirin daily. Discharge orders & Medications Prescriptions: New diltiazem HCl [Cardizem CD] 240 mg capsule,extended release 24hr 240 mg PO DAILY Qty: 30 RF: 0 ferrous sulfate 324 mg (65 mg iron) tablet,delayed release (DR/EC) 324 mg PO BID Qty: 60 RF: 0 prednisone 20 mg tablet 40 mg PO DAILY Qty: 4 RF: 0 digoxin 125 mcg (0.125 mg) tablet 125 mcg PO DAILY Qty: 30 RF: 0 apixaban 5 mg tablet 5 mg PO BID Qty: 60 RF: 0 aspirin 81 mg tablet,delayed release (DR/EC) 81 mg PO DAILY Qty: 30 RF: 0 Continued albuterol sulfate 90 mcg/actuation HFA aerosol inhaler 2 puff INHALATION Q4-6H PRN (Reason: Shortness Of Breath) Qty: 17 RF: 6 fluticasone propion-salmeterol [Advair Diskus] 500-50 mcg/dose blister with device 1 inh INHALATION BID Qty: 120 RF: 6 Combivent Respimat 20-100 mcg/actuation mist 1 puff INHALATION QID Qty: 12 RF: 2 lisinopril 10 mg tablet 10 mg PO DAILY Qty: 90 RF: 1 atorvastatin 10 mg tablet 10 mg PO BEDTIME Qty: 90 RF: 1 ipratropium-albuterol 0.5 mg-3 mg(2.5 mg base)/3 mL solution for nebulization 3 ml inhalation Q4-6H MDD 6 times per day PRN (Reason: shortness of breath) Qty: 540 RF: 6 nicotine 21 mg/24 hr patch 24 hour 1 patch transdermal DAILY Qty: 28 RF: 1 (DME) Compact Compressor Nebulizer Misc See Rx Instructions .ROUTE .MEDSUPPLY Qty: 1 RF: 0 Discontinued prednisone 10 mg tablet 10 mg PO DAILY Qty: 90 RF: 1 diltiazem HCl [Cardizem CD] 180 mg capsule,extended release 24hr 180 mg PO DAILY Qty: 90 RF: 1 aspirin 325 mg tablet 325 mg PO DAILY Qty: 90 RF: 1 Follow up/Referrals: Jose Luis Hudson, DO [Primary Care Provider] - Diet/Activity/Treatments Diet: Low-sodium Visit Report/Discharge Packet Instructions: DI for Chronic Obstructive Pulmonary Disease, DI for Atrial Fibrillation, Digoxin, Diltiazem, Apixaban Discharge Data Primary Care Provider: Jose Luis Hudson Quality VTE Deep Vein Thrombosis/Pulmonary Embolism Present on Admission: No
== END 2021-01-11 15:45 | disposition home or self-care (01) | DRG 193 ==
LOC: ED 21:40 → ICU 01-09 09:47 → AC 01-09 13:39 → ICU 01-09 13:39
PROVIDERS: Emergency Medicine; Internal Medicine; Admitting Provider Nurse Practitioner Adult Health; Emergency Provider Emergency Medicine; PCP Family Medicine; Referring Provider Emergency Medicine; Visit Provider Nurse Practitioner Adult Health
DX: J12.89 Other viral pneumonia (principal); J96.21 Acute and chronic respiratory failure with hypoxia; I50.31 Acute diastolic (congestive) heart failure; J47.0 Bronchiectasis with acute lower respiratory infection; B97.19 Other enterovirus as the cause of diseases classified elsewhere; Z99.81 Dependence on supplemental oxygen; I27.81 Cor pulmonale (chronic); I48.91 Unspecified atrial fibrillation; Z20.822 Contact with and (suspected) exposure to COVID-19; J43.9 Emphysema, unspecified; G47.33 Obstructive sleep apnea (adult) (pediatric); F17.220 Nicotine dependence, chewing tobacco, uncomplicated; D50.9 Iron deficiency anemia, unspecified; I10 Essential (primary) hypertension
CPT/HCPCS: 36415; 71046; 71275; 80048; 80053; 80061; 82550; 82553; 83540; 83550; 83605; 83735; 83880; 84145; 84443; 84484; 85025; 85027; 85610; 87040; 87070; 87077; 87186; 87205; 87633; 87635; 87797; 93005; 93306; 94640; 94667; 94668; 94760; 94762; 96374; 99284; 99285; C9803; J1160; J1650; J1940; J1956; J7613

== ENCOUNTER 2021-01-30 16:14 | Emergency (ER) | payer MEDICARE, OTHER, SELFPAY ==
[2021-01-08 22:19] VITALS: BMI 24.7
[2021-01-30 16:24] VITALS: TEMP 36.4; BMI 28.0
[2021-01-30 16:31] VITALS: BP 123/66; PULSE 76; RESP 16; TEMP 36.4; O2SAT 100
--- NOTE | 2021-01-30 16:44 | ED.GENADULT ---
HPI - General Adult General Chief complaint: Abdominal Pain Stated complaint: PCP wanted pt seen in ED Time Seen by Provider: 01/30/21 16:29 Source: patient, family and EMS Mode of arrival: EMS Limitations: altered mental status History of Present Illness HPI narrative: 81-year-old male who is brought in by EMS for evaluation. Patient states he is unsure as to why he is here. I was able to talk with his home health aide and also his daughter. Apparently there was some questions about whether not he should be taking his apixaban and aspirin. They also questions about his prednisone dose and they were also concerned that he has had a 5 lb weight gain over the past 3 days. Patient states he feels fine. He has no chest pain or shortness of breath. He is on oxygen at home. He knows where he is but is somewhat confused about what year it is. He states that he does not know why he is here. Related Data Previous Rx's Medication Instructions Recorded albuterol sulfate 90 mcg/actuation 2 puff INHALATION Q4-6H PRN #17 g 10/15/20 aerosol inhaler atorvastatin 10 mg tablet 10 mg PO BEDTIME #90 tab 10/15/20 fluticasone 500 mcg-salmeterol 50 1 inh INHALATION BID #120 ea 10/15/20 mcg/dose blistr powdr for inhalation ipratropium 0.5 mg-albuterol 3 mg 3 ml INHALATION Q4-6H PRN #540 ml 10/15/20 (2.5 mg base)/3 mL nebulization MDD 6 times per day soln ipratropium 20 mcg-albuterol 100 1 puff INHALATION QID #12 g 10/15/20 mcg/actuation mist for inhalation lisinopril 10 mg tablet 10 mg PO DAILY #90 tab 10/15/20 nebulizers #1 ea 10/15/20 nicotine 21 mg/24 hr daily 1 patch TRANSDERMAL DAILY #28 ea 10/15/20 transdermal patch apixaban 5 mg PO BID #60 tab 01/11/21 aspirin 81 mg PO DAILY #30 tab 01/11/21 digoxin 125 mcg PO DAILY #30 tab 01/11/21 diltiazem HCl [Cardizem CD] 240 mg PO DAILY #30 cap 01/11/21 ferrous sulfate 324 mg PO BID #60 tab 01/11/21 prednisone 20 mg tablet 40 mg PO DAILY #4 tab 01/22/21 Allergies Allergy/AdvReac Type Severity Reaction Status Date / Time No Known Drug Allergies Allergy Verified 01/08/21 17:43 Review of Systems Constitutional Constitutional: Denies fever(s) and Denies headache(s) ENT Ears, Nose, Mouth, and Throat: Denies headache(s) Cardiovascular Cardiovascular: Denies chest pain and Reports dyspnea (But no new change in shortness of breath) Respiratory Respiratory: Reports dyspnea (But no new change in shortness of breath) Gastrointestinal Gastrointestinal: Denies abdominal pain, Denies nausea and Denies vomiting Genitourinary Genitourinary: Denies dysuria Genitourinary: Denies dysuria Musculoskeletal Musculoskeletal: Denies myalgias Integumentary/Breasts Skin/Breast: Denies rash Neurologic Neurologic: Denies behavioral changes and Denies headache(s) Psychiatric Psychiatric: Denies behavioral changes Hematologic/Lymphatic On Anticoagulants: Yes Allergic/Immunologic Allergic/Immunologic: Denies urticaria Patient History Medical History Aneurysm Chronic cough COPD (chronic obstructive pulmonary disease) Hearing loss History of emphysema Oxygen dependent Sleep apnea Surgical History History of bladder surgery Family History (Updated 01/09/21 @ 03:28 by BOB Ni) Father No significant medical problems Mother Medical history unknown Social History household members: children Smoking Status: Former smoker Tobacco: How many years used: 30 Smokeless tobacco user: chewing tobacco (former ) quit status: not considering quitting (Daughter is weaning pt off ) alcohol intake: former substance use type: does not use Smoking Status: Former smoker tobacco type: cigarettes Substance Use Type: does not use Exam Initial Vital Signs Initial Vital Signs: Vital Signs Temperature 97.6 F 01/30/21 16:24 Const General: cooperative and comfortable HENMT Head: normal to inspection and normocephalic Eyes General: appearance normal, both eyes and all related structures Resp Effort & Inspection: normal respiratory effort Auscultation: rhonchi Cardio Rate: regular rate Rhythm: regular rhythm GI Inspection: non-distended Palpation: soft Skin Lesions: no lesions Rashes: no rashes Neuro General: patient alert, patient awake and patient oriented x3 Cognition: normal cognition Speech: speech normal Extrem General: normal to inspection, capillary refill normal and No edema Psych Appearance: grossly normal and well kempt Scores GCS [place] coma scale eye opening: Spontaneous [place] coma scale verbal response: Confused Cristopher coma scale motor response: Obey commands [place] coma scale total score: 14 Course Orders Ordered: ED Orders 01/30/21 16:46 Consult to [facility] - Keg Header Stat Vital Signs Vital signs: Vital Signs - 8 hr 01/30/21 16:24 01/30/21 16:31 Temperature 97.6 F 97.6 F Pulse Rate 76 Respiratory Rate 16 Blood Pressure 123/66 Pulse Oximetry 100 Medical Decision Making MDM Narrative Medical decision making narrative: Patient is satting greater than 95% on his home oxygen level. His lungs do have rhonchi but he is not in respiratory distress. He has minimal lower extremity swelling. His daughter did come to bedside. We did discuss that the doctor that discharge him from the hospital did want him both on the apixaban and a baby aspirin. We discussed his prednisone. The concern was is that they were initially told he was the take 40 mg a day but that went a refill the medicines a really given 10 mg tablets. I do not have the actual prescription to look at. I suspect that they would like him to taper from this given his history of COPD. I discussed with the sister that they should take 30 mg a day for 7 days than 20 mg a day for 7 days then 10 mg for 7 days. Apparently he has had a weight gain however he is not clinically in heart failure. He has oxygen at home. He states he feels fine. Will discharge home. I also discussed with the daughter bedside regarding return precautions. They both expressed understanding and agreement. Discharge Plan Departure Patient Disposition: Home Clinical Impression: COPD (chronic obstructive pulmonary disease) Instructions: How to Prevent Falls Activity Restrictions/Additional Instructions: The the discharge she from the hospital does when she to take both the Eliquis and the 81 mg aspirin on a daily basis. With regard to the prednisone I recommend that you take 30 mg a day for 7 days then 20 mg a day for 7 days then 10 mg a day for 7 days. Continue to track your weight at home. Contact your primary provider for follow-up. Return to the emergency department for any new or worsening symptoms Prescriptions: No Action prednisone 20 mg tablet 40 mg PO DAILY Qty: 4 RF: 0 albuterol sulfate 90 mcg/actuation HFA aerosol inhaler 2 puff INHALATION Q4-6H PRN (Reason: Shortness Of Breath) Qty: 17 RF: 6 fluticasone propion-salmeterol [Advair Diskus] 500-50 mcg/dose blister with device 1 inh INHALATION BID Qty: 120 RF: 6 Combivent Respimat 20-100 mcg/actuation mist 1 puff INHALATION QID Qty: 12 RF: 2 lisinopril 10 mg tablet 10 mg PO DAILY Qty: 90 RF: 1 atorvastatin 10 mg tablet 10 mg PO BEDTIME Qty: 90 RF: 1 ipratropium-albuterol 0.5 mg-3 mg(2.5 mg base)/3 mL solution for nebulization 3 ml inhalation Q4-6H MDD 6 times per day PRN (Reason: shortness of breath) Qty: 540 RF: 6 nicotine 21 mg/24 hr patch 24 hour 1 patch transdermal DAILY Qty: 28 RF: 1 (DME) Compact Compressor Nebulizer Misc See Rx Instructions .ROUTE .MEDSUPPLY Qty: 1 RF: 0 diltiazem HCl [Cardizem CD] 240 mg capsule,extended release 24hr 240 mg PO DAILY Qty: 30 RF: 0 ferrous sulfate 324 mg (65 mg iron) tablet,delayed release (DR/EC) 324 mg PO BID Qty: 60 RF: 0 digoxin 125 mcg (0.125 mg) tablet 125 mcg PO DAILY Qty: 30 RF: 0 apixaban 5 mg tablet 5 mg PO BID Qty: 60 RF: 0 aspirin 81 mg tablet,delayed release (DR/EC) 81 mg PO DAILY Qty: 30 RF: 0 Referrals: Jose Luis Hudson, [Primary Care Provider] -
--- NOTE | 2021-01-30 16:56 | CM.SWNOTE ---
HEAD OF SCIENCE note HEAD OF SCIENCE consult requested for patient. Patient is a 81 y/o male who presents to this ED by request of his PCP due to weight gain and medication review. Prior to HEAD OF SCIENCE completing consult, ED Provider Dr. Mora speaks with caregiver who is able to clarify that patient has several services in place and good support in home. After discussion with Dr. Mora, it is agreed that HEAD OF SCIENCE will not meet with patient at this time. ALLISON Stevens
[2021-01-30 18:00] VITALS: BP 128/64; PULSE 78; RESP 18; O2SAT 100
[2021-01-30 18:11] VITALS: BP 128/64; PULSE 78; RESP 77; O2SAT 100
== END 2021-01-30 18:12 | disposition home or self-care (01) ==
PROVIDERS: Emergency Provider Emergency Medicine; PCP Family Medicine
DX: J44.9 Chronic obstructive pulmonary disease, unspecified (principal); R06.00 Dyspnea, unspecified
CPT/HCPCS: 99284; 99285

== ENCOUNTER 2021-02-05 18:02 | Emergency (ER) | payer MEDICARE, OTHER, SELFPAY ==
[2021-01-08 22:19] VITALS: BMI 24.7
[2021-02-05] VITALS (7 sets, daily range): BP systolic 119–141; BP diastolic 59–68; PULSE 82–101; RESP 17–24; TEMP 36.7; O2SAT 97–99
--- NOTE | 2021-02-05 18:31 | DI.RAD.S_ITS ---
PROCEDURE: XR CHEST 2V INDICATIONS: shortness of breath TECHNIQUE: 2 views of the chest were acquired. COMPARISON: [facility], CR, XR CHEST 2V, 01/08/2021, 18:07. FINDINGS: Surgical changes and devices: None. Lungs and pleura: Lungs are clear. No pleural effusions or pneumothorax. Mediastinum: Mediastinal contours are normal. Heart size is normal. Bones and chest wall: No suspicious bony abnormalities. Soft tissues appear unremarkable. IMPRESSION: No acute process. Dictated by: Lucas Hope M.D. on 02/05/2021 at 18:57 Approved by: Lucas Hope M.D. on 02/05/2021 at 18:57
[2021-02-05 18:40] LABS: Add Manual Diff / Slide Review NO; Basophils Absolute Auto 100 /uL (0-100); Basophils Percent Auto 0.8 % (0-2); Eosinophils Absolute Auto 100 /uL (0-450); Eosinophils Percent Auto 0.8 % (2-4); Hematocrit 27.9 % (41-53); Hemoglobin 8.5 g/dL (13.5-17.5); Lymphocytes Absolute Auto 1700 /uL (1100-4500); Lymphocytes Percent Auto 15.8 % (25-40); Mean Corpuscular HGB Conc 30.4 % (30-36); Mean Corpuscular Volume 82.2 fL (80-100); Monocytes Absolute Auto 900 /uL (0-900); Monocytes Percent Auto 8.5 % (3-14); Neutrophils Absolute Auto 8200 /uL (1500-7000); Neutrophils Percent Auto 74.1 % (50-75); Platelet Count 330 X10^3/uL (150-400); Red Cell Distribution Width 23.4 % (11.6-14.8)
[2021-02-05 18:46] LABS: Lactate (Lactic Acid) 1.7 mmol/L (0.7-2.1)
[2021-02-05 18:47] LABS: Alanine Aminotransferase 22 IU/L (<50); Albumin 3.5 g/dL (3.5-5.0); Albumin Globulin Ratio 1.3 (1.0-2.8); Alkaline Phosphatase 75 U/L (38-126); Aspartate Aminotransferase 20 IU/L (17-59); BUN Creatinine Ratio 13.9 (6-22); Bilirubin Total 0.1 mg/dL (0.2-1.3); Blood Urea Nitrogen 17 mg/dL (9-20); Calcium 8.7 mg/dL (8.4-10.2); Carbon Dioxide 28 mmol/L (22-32); Chloride 109 mmol/L (98-107); Estimated Glomerular Filt Rate 57.3 mL/min (>60); Globulin 2.7 g/dL (1.7-4.1); Glucose 129 mg/dL (80-110); HEMOLYSIS < 15 (0-50); Potassium 4.5 mmol/L (3.4-5.1); Sodium 143 mmol/L (137-145); Total Protein 6.2 g/dL (6.3-8.2)
[2021-02-05 18:55] LABS: NT-proBNP (BNP-Adult 18+) 1290 pg/mL (<450)
--- NOTE | 2021-02-05 19:04 | RT ---
Went to assess pt and perform EKG at 1838. Pt is in ED for rapid weight gain, pt gained 5 lbs in 5 five days per daughter at bedside. Pt's daughter is at bedside to answer questions due to pt's Alzheimer's. Pt is sitting on the side of the bed, 4 LPM NC, SpO2 98%, BS clear/diminished with crackles in bases, RR 20. Strong, loose, non-productive cough. Pt has hx of emphysema, COPD, and is O2 dependent (3.5 LPM at home). Pt takes albuterol MDI PRN, fluticasone BID, and respimat QID. Recommending O2 therapy, pt's home regimen of COPD/emphysema respiratory meds, and diuretics for possible CHF exacerbation.
[2021-02-05 19:09] LABS: Hypochromasia 2+; Microcytosis 2+; Polychromasia 2+
[2021-02-05 19:14] LABS: Prothrombin Time 11.5 SECONDS (10.1-12.7)
--- NOTE | 2021-02-05 19:30 | ED_ITS ---
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 The gentleman himself does not complain of increased shortness of breath, increased orthopnea or dyspnea. His daughter is with him and notes that he is minimally mobile and quite dyspneic at baseline. He does sleep in a hospital bed. The dyspnea does not seem to have worsened and he has not needed to increase the incline a hospital bed recently. Carry a diagnosis of congestive heart failure and had an echocardiogram in January of this year showing an ejection fraction at 60-65%, mild tricuspid r egurgitation he is in atrial fibrillation so diastolic dysfunction was not fully evaluated. He notes no fevers, abdominal pain, vomiting, diarrhea, black stools. Related Data Previous Rx's Medication Instructions Recorded albuterol sulfate 90 mcg/actuation 2 puff INHALATION Q4-6H PRN #17 g 10/15/20 aerosol inhaler atorvastatin 10 mg tablet 10 mg PO BEDTIME #90 tab 10/15/20 fluticasone 500 mcg-salmeterol 50 1 inh INHALATION BID #120 ea 10/15/20 mcg/dose blistr powdr for inhalation ipratropium 0.5 mg-albuterol 3 mg 3 ml INHALATION Q4-6H PRN #540 ml 10/15/20 (2.5 mg base)/3 mL nebulization MDD 6 times per day soln ipratropium 20 mcg-albuterol 100 1 puff INHALATION QID #12 g 10/15/20 mcg/actuation mist for inhalation lisinopril 10 mg tablet 10 mg PO DAILY #90 tab 10/15/20 nebulizers #1 ea 10/15/20 nicotine 21 mg/24 hr daily 1 patch TRANSDERMAL DAILY #28 ea 10/15/20 transdermal patch apixaban 5 mg PO BID #60 tab 01/11/21 aspirin 81 mg PO DAILY #30 tab 01/11/21 digoxin 125 mcg PO DAILY #30 tab 01/11/21 diltiazem HCl [Cardizem CD] 240 mg PO DAILY #30 cap 01/11/21 ferrous sulfate 324 mg PO BID #60 tab 01/11/21 prednisone 20 mg tablet 40 mg PO DAILY #4 tab 01/22/21 furosemide 20 mg PO QAM #30 tab 02/05/21 Allergies Allergy/AdvReac Type Severity Reaction Status Date / Time No Known Drug Allergies Allergy Verified 02/05/21 19:25 Review of Systems Review of Systems Narrative: Remainder of complete review of systems is otherwise unremarkable e xcept for that included in the HPI. Patient History Medical History (Updated 02/05/21 @ 20:39 by Cate Peterson MD) Aneurysm Chronic cough COPD (chronic obstructive pulmonary disease) Hearing loss History of emphysema Oxygen dependent Sleep apnea Surgical History History of bladder surgery Family History (Updated 01/09/21 @ 03:28 by BOB Ni) Father No significant medical problems Mother Medical history unknown Social History household members: children Smoking Status: Former smoker Tobacco: How many years used: 30 Smokeless tobacco user: chewing tobacco (former ) quit status: not considering quitting (Daughter is weaning pt off ) alcohol intake: former substance use type: does not use Smoking Status: Former smoker tobacco type: cigarettes Substance Use Type: does not use Exam Narrative Exam Narrative: General: Chronically ill-appearing, in no acute distress. Able to speak in full sentences HEENT: Moist mucous membranes, normal sclera with reactive pupils, Neck: +JVD, supple Respiratory: Lungs with good air movement, rhonchi and wheezes in all lung yao no crackles appreciated Cardiac: Over writing pulmonary noises however irregular rate and no murmurs appreciated Abdomen: Soft, nontender, good bowel tones, no flank pain Skin: Thin with multiple superficial bruises in various stages of healing, Warm and dry, no rashes Neurologic: Globally weak but Grossly neurologically intact with no obvious asymmetries or abnormalities Extremities: No trauma, well perfused, 3+ deeply pitting edema Psych: Cooperative, appropriate insight and affect Initial Vital Signs Initial Vital Signs: Vital Signs Temperature 98.0 F 02/05/21 18:05 Pulse Rate 101 H 05/06/21 18:05 Blood Pressure 128/68 05/06/21 18:05 Pulse Oximetry 98 02/05/21 18:05 Course Orders Ordered: ED Orders 02/05/21 18:16 Complete Blood Count AUTO DIFF Stat Comprehensive Metabolic Panel Stat Lactate (Lactic Acid) Stat NT-proBNP (BNP-Adult 18+) Stat Prothrombin Time INR Stat Troponin I Stat 02/05/21 18:31 XR chest 2V Stat EKG-12 Lead Stat Measure peak expiratory flow ONCE RT Consult Eval and Treat Now Discontinued Medications Furosemide (Furosemide 40 Mg/4 Ml Vial) 40 mg IV NOW ONE Stop: 02/05/21 19:42 Last Admin: 02/05/21 19:52 Dose: 40 mg Documented by: PENNY Vital Signs Vital signs: Vital Signs - 8 hr 02/05/21 18:05 02/05/21 18:14 02/05/21 18:30 Temperature 98.0 F Pulse Rate 101 H 97 H 87 Respiratory Rate Blood Pressure 128/68 128/68 119/64 Pulse Oximetry 98 97 99 02/05/21 19:00 02/05/21 19:30 02/05/21 20:00 Temperature Pulse Rate 87 84 82 Respiratory Rate 21 17 24 Blood Pressure 124/59 L 138/66 141/62 H Pulse Oximetry 99 99 98 MDM - SOB/Dyspnea Medical Records Attestation: I reviewed the patient's medical records. Lab Data Attestation: I reviewed the patient's lab results. Result diagrams: 02/05/21 18:16 02/05/21 18:16 Labs: Lab Results 02/05/21 02/05/21 02/05/21 Range/Units 18:16 18:16 18:16 WBC 11.0 (4.5-11.0) X10^3/uL RBC 3.40 L (4.5-5.9) X10^6/uL Hgb 8.5 L (13.5-17.5) g/dL Hct 27.9 L (41-53) % MCV 82.2 (80-100) fL MCH 25.0 L (26-34) PG MCHC 30.4 (30-36) % RDW 23.4 H (11.6-14.8) % Plt Count 330 (150-400) X10^3/uL Neut % (Auto) 74.1 (50-75) % Lymph % (Auto) 15.8 L (25-40) % Frederick % (Auto) 8.5 (3-14) % Eos % (Auto) 0.8 L (2-4) % Baso % (Auto) 0.8 (0-2) % Neut # (Auto) 8200 H (0670-6176) /uL Lymph # (Auto) 1700 (9474-1701) /uL Frederick # (Auto) 900 (0-900) /uL Eos # (Auto) 100 (0-450) /uL Baso # (Auto) 100 (0-100) /uL RBC Morphology See below Polychromasia 2+ H Hypochromasia 2+ H Microcytosis 2+ H PT (10.1-12.7) SECONDS INR (0.9-1.3) Sodium 143 (137-145) mmol/L Potassium 4.5 (3.4-5.1) mmol/L Chloride 109 H (98-107) mmol/L Carbon Dioxide 28 (22-32) mmol/L BUN 17 (9-20) mg/dL Creatinine 1.22 (0.66-1.25) mg/dL Estimated GFR 57.3 L (>60) mL/min BUN/Creatinine Ratio 13.9 (6-22) Glucose 129 H (80-110) mg/dL Lactate 1.7 (0.7-2.1) mmol/L Calcium 8.7 (8.4-10.2) mg/dL Total Bilirubin 0.1 L (0.2-1.3) mg/dL AST 20 (17-59) IU/L ALT 22 (<50) IU/L Alkaline Phosphatase 75 (38-126) U/L Troponin I (0.01-0.034) ng/mL NT-Pro-B Natriuret Pep 1290 H (<450) pg/mL Total Protein 6.2 L (6.3-8.2) g/dL Albumin 3.5 (3.5-5.0) g/dL Globulin 2.7 (1.7-4.1) g/dL Albumin/Globulin Ratio 1.3 (1.0-2.8) 02/05/21 02/05/21 Range/Units 18:16 18:16 WBC (4.5-11.0) X10^3/uL RBC (4.5-5.9) X10^6/uL Hgb (13.5-17.5) g/dL Hct (41-53) % MCV (80-100) fL MCH (26-34) PG MCHC (30-36) % RDW (11.6-14.8) % Plt Count (150-400) X10^3/uL Neut % (Auto) (50-75) % Lymph % (Auto) (25-40) % Frederick % (Auto) (3-14) % Eos % (Auto) (2-4) % Baso % (Auto) (0-2) % Neut # (Auto) (5887-1708) /uL Lymph # (Auto) (2408-6634) /uL Frederick # (Auto) (0-900) /uL Eos # (Auto) (0-450) /uL Baso # (Auto) (0-100) /uL RBC Morphology Polychromasia Hypochromasia Microcytosis PT 11.5 (10.1-12.7) SECONDS INR 1.0 (0.9-1.3) Sodium (137-145) mmol/L Potassium (3.4-5.1) mmol/L Chloride (98-107) mmol/L Carbon Dioxide (22-32) mmol/L BUN (9-20) mg/dL Creatinine (0.66-1.25) mg/dL Estimated GFR (>60) mL/min BUN/Creatinine Ratio (6-22) Glucose (80-110) mg/dL Lactate (0.7-2.1) mmol/L Calcium (8.4-10.2) mg/dL Total Bilirubin (0.2-1.3) mg/dL AST (17-59) IU/L ALT (<50) IU/L Alkaline Phosphatase (38-126) U/L Troponin I < 0.012 (0.01-0.034) ng/mL NT-Pro-B Natriuret Pep (<450) pg/mL Total Protein (6.3-8.2) g/dL Albumin (3.5-5.0) g/dL Globulin (1.7-4.1) g/dL Albumin/Globulin Ratio (1.0-2.8) Imaging Data Chest x-ray: Radiologist's Impression: FINDINGS: Surgical changes and devices: None. Lungs and pleura: Lungs are clear. No pleural effusions or pneumothorax. Mediastinum: Mediastinal contours are normal. Heart size is normal. Bones and chest wall: No suspicious bony abnormalities. Soft tissues appear unremarkable. IMPRESSION: No acute process. Dictated by: Lucas Hope M.D. on 02/05/2021 at 18:57 ECG Data Attestation: I personally reviewed and interpreted this ECG as follows: Interpretation: Atrial fibrillation at a rate of 90 to No acute ischemic changes, occasional PVC MDM Narrative Medical decision making narrative: 81-year-old gentleman with end-stage oxygen and prednisone dependent COPD presents with 5 days of increasing weight and no other clinical signs or complaints. ProBNP is slightly elevated, clinical exam is consistent with mild fluid fluid overload. There is no evidence of pneumonia, acute coronary syndrome or recent heart attack. He is in his chronic atrial fibrillation that is rate controlled. He has responded nicely to a single dose of IV Lasix in the emergency department. Recent echocardiogram was done and he likely has mild diastolic dysfunction. At this point I think is safe for home discharge and will have him continue with 20 mg of Lasix and follow-up with his primary care physician within the next week. Discharge Plan Departure Patient Disposition: Home Clinical Impression: CHF (congestive heart failure) Qualifiers: Heart failure type: diastolic Heart failure chronicity: acute Qualified Code(s): I50.31 - Acute diastolic (congestive) heart failure Instructions: DI for Heart Failure Activity Restrictions/Additional Instructions: Thank you for coming in today I do not see any signs of infection or heart attack. Your COPD seems to be at its baseline. You do appear to be having some mild congestive heart failure symptoms. At this point, you do not need to be in the hospital however you do need to continue all of your medications and add 20 mg of furosemide/Lasix. This is a water pill and will make you pee quite a bit. Please take it in the morning so that you are able to get some sleep. Please schedule an appointment to follow-up with Dr. Hudson next week to see if this medication needs to be continued and make sure that your doing well. I would also encourage you to continue to weigh yourself regularly so that you can catch these symptoms early and avoid hospitalization. If you have any worsening symptoms, please feel free to return to the ER. Prescriptions: New furosemide 20 mg tablet 20 mg PO QAM Qty: 30 RF: 0 No Action prednisone 20 mg tablet 40 mg PO DAILY Qty: 4 RF: 0 albuterol sulfate 90 mcg/actuation HFA aerosol inhaler 2 puff INHALATION Q4-6H PRN (Reason: Shortness Of Breath) Qty: 17 RF: 6 fluticasone propion-salmeterol [Advair Diskus] 500-50 mcg/dose blister with device 1 inh INHALATION BID Qty: 120 RF: 6 Combivent Respimat 20-100 mcg/actuation mist 1 puff INHALATION QID Qty: 12 RF: 2 lisinopril 10 mg tablet 10 mg PO DAILY Qty: 90 RF: 1 atorvastatin 10 mg tablet 10 mg PO BEDTIME Qty: 90 RF: 1 ipratropium-albuterol 0.5 mg-3 mg(2.5 mg base)/3 mL solution for nebulization 3 ml inhalation Q4-6H MDD 6 times per day PRN (Reason: shortness of breath) Qty: 540 RF: 6 nicotine 21 mg/24 hr patch 24 hour 1 patch transdermal DAILY Qty: 28 RF: 1 (DME) Compact Compressor Nebulizer Misc See Rx Instructions .ROUTE .MEDSUPPLY Qty: 1 RF: 0 diltiazem HCl [Cardizem CD] 240 mg capsule,extended release 24hr 240 mg PO DAILY Qty: 30 RF: 0 ferrous sulfate 324 mg (65 mg iron) tablet,delayed release (DR/EC) 324 mg PO BID Qty: 60 RF: 0 digoxin 125 mcg (0.125 mg) tablet 125 mcg PO DAILY Qty: 30 RF: 0 apixaban 5 mg tablet 5 mg PO BID Qty: 60 RF: 0 aspirin 81 mg tablet,delayed release (DR/EC) 81 mg PO DAILY Qty: 30 RF: 0 Referrals: Jose Luis Hudson, [Primary Care Provider] -
[2021-02-05] MEDS: FUROSEMIDE 40 MG/4 ML VIAL IV (19:52)
[2021-02-05 20:09] LABS: Troponin I < 0.012 ng/mL (0.01-0.034)
== END 2021-02-05 21:05 | disposition home or self-care (01) ==
PROVIDERS: Emergency Provider Emergency Medicine; PCP Family Medicine
DX: I50.31 Acute diastolic (congestive) heart failure (principal)
CPT/HCPCS: 36415; 71046; 80053; 83605; 83880; 84484; 85025; 85610; 93005; 96374; 99284; J1940

== ENCOUNTER → 2021-02-10 14:58 | Outpatient (CLI) | payer MEDICARE, OTHER, SELFPAY ==
[2021-01-08 22:19] VITALS: BMI 24.7
[2021-02-10 15:58] LABS: Alanine Aminotransferase 20 IU/L (<50); Albumin 3.7 g/dL (3.5-5.0); Albumin Globulin Ratio 1.3 (1.0-2.8); Alkaline Phosphatase 78 U/L (38-126); Aspartate Aminotransferase 22 IU/L (17-59); BUN Creatinine Ratio 15.7 (6-22); Bilirubin Total 0.2 mg/dL (0.2-1.3); Blood Urea Nitrogen 21 mg/dL (9-20); Carbon Dioxide 32 mmol/L (22-32); Chloride 101 mmol/L (98-107); Estimated Glomerular Filt Rate 51.4 mL/min (>60); Globulin 2.9 g/dL (1.7-4.1); Glucose 164 mg/dL (80-110); HEMOLYSIS < 15 (0-50); Potassium 4.5 mmol/L (3.4-5.1); Sodium 138 mmol/L (137-145); Total Protein 6.6 g/dL (6.3-8.2)
[2021-02-10 17:21] LABS: Digoxin 0.9 ng/mL (0.8-2.0)
== END ==
PROVIDERS: PCP Family Medicine; Referring Provider Family Medicine; Visit Provider Family Medicine
DX: I48.91 Unspecified atrial fibrillation (principal); I50.31 Acute diastolic (congestive) heart failure
CPT/HCPCS: 36415; 80053; 80162

== ENCOUNTER 2021-03-09 16:31 | Emergency (ER) | payer MEDICARE, OTHER, SELFPAY ==
[2021-01-08 22:19] VITALS: BMI 24.7
[2021-03-09] VITALS (8 sets, daily range): BP systolic 128–141; BP diastolic 58–72; PULSE 80–88; RESP 19–26; TEMP 37.3; O2SAT 94–100
--- NOTE | 2021-03-09 16:51 | DI.RAD.S_ITS ---
PROCEDURE: XR CHEST 2V INDICATIONS: shortness of breath TECHNIQUE: 2 views of the chest were acquired. COMPARISON: [facility], CT, CT ANGIO CHEST PE PROTOCOL, 01/08/2021, 19:30. [facility], CR, XR CHEST 2V, 01/08/2021, 18:07. [facility], CR, XR CHEST 2V, 02/05/2021, 18:40. FINDINGS: Surgical changes and devices: None. Lungs and pleura: Mild hyperinflation consistent with COPD. Left basilar opacity may be infiltrate, scars or atelectasis. No pleural effusions or pneumothorax. Mediastinum: Mediastinal contours are normal. Heart size is normal. Bones and chest wall: No suspicious bony abnormalities. Soft tissues appear unremarkable. IMPRESSION: 1. Left basilar opacity may be infiltrate, scars or atelectasis. Recommend follow-up to resolution. 2. COPD. Dictated by: Nelly Ojeda M.D. on 03/09/2021 at 17:33 Approved by: Nelly Ojeda M.D. on 03/09/2021 at 17:36
[2021-03-09 17:58] LABS: Alanine Aminotransferase 22 IU/L (<50); Albumin 3.5 g/dL (3.5-5.0); Albumin Globulin Ratio 1.3 (1.0-2.8); Alkaline Phosphatase 64 U/L (38-126); Aspartate Aminotransferase 25 IU/L (17-59); BUN Creatinine Ratio 17.8 (6-22); Bilirubin Total 0.2 mg/dL (0.2-1.3); Blood Urea Nitrogen 23 mg/dL (9-20); Calcium 8.5 mg/dL (8.4-10.2); Carbon Dioxide 31 mmol/L (22-32); Chloride 103 mmol/L (98-107); Creatine Kinase 79 U/L (55-170); Estimated Glomerular Filt Rate 53.7 mL/min (>60); Globulin 2.6 g/dL (1.7-4.1); Glucose 120 mg/dL (80-110); HEMOLYSIS < 15 (0-50); Potassium 4.3 mmol/L (3.4-5.1); Sodium 139 mmol/L (137-145); Total Protein 6.1 g/dL (6.3-8.2)
[2021-03-09 18:03] LABS: Add Manual Diff / Slide Review NO; Basophils Absolute Auto 100 /uL (0-100); Basophils Percent Auto 0.6 % (0-2); Eosinophils Absolute Auto 0 /uL (0-450); Eosinophils Percent Auto 0.3 % (2-4); Hematocrit 23.1 % (41-53); Lymphocytes Absolute Auto 900 /uL (1100-4500); Lymphocytes Percent Auto 9.5 % (25-40); Mean Corpuscular HGB Conc 30.3 % (30-36); Mean Corpuscular Hemoglobin 27.2 PG (26-34); Mean Corpuscular Volume 89.6 fL (80-100); Monocytes Absolute Auto 900 /uL (0-900); Monocytes Percent Auto 9.3 % (3-14); Neutrophils Absolute Auto 8000 /uL (1500-7000); Neutrophils Percent Auto 80.3 % (50-75); Platelet Count 336 X10^3/uL (150-400); Red Blood Cell Count 2.58 X10^6/uL (4.5-5.9); Red Cell Distribution Width 24.9 % (11.6-14.8); White Blood Cell Count 9.9 X10^3/uL (4.5-11.0)
[2021-03-09 18:09] LABS: NT-proBNP (BNP-Adult 18+) 2980 pg/mL (<450); Troponin I < 0.012 ng/mL (0.01-0.034)
--- NOTE | 2021-03-09 18:12 | ED_ITS ---
HPI - SOB/Dyspnea General Chief Complaint: Shortness of Breath/Dyspnea Stated Complaint: SWELLING OF LEGS SOB Time Seen by Provider: 03/09/21 16:57 Source: patient and family Mode of arrival: Family Vehicle Limitations: no limitations History of Present Illness HPI Narrative: This is a 81-year-old male who comes in with complaint of shortness of breath according to family at bedside. Patient himself denies any symptoms currently. His family states he is mildly demented. Patient is denying any headache, chest pain or pressure, no abdominal, back or flank pain and no pain in his extremities. Patient currently denies any shortness of breath. He does states he gets short of breath when he walks to the bathroom. Family notes that he missed 1 dose of Lasix yesterday which was 20 mg lasix. He normally takes single 20 mg dose daily. They noticed that he was having increasing airway sounds such as gurgling. Patient was also sitting more up on the edge of his chair and was sleeping less than normal. They do note that his weight increased by 2 lb in the last 24 hours and also that patient drank 6 tristen les of Gatorade yesterday which is atypical. Patient does have a known history of COPD, atrial fibrillation and appears to be on apixaban. He is also takes prednisone 10 mg daily according to his family, the 20 mg Lasix and diltiazem 240 mg. Patient also uses a nebulizer each time he goes to the bathroom sometimes up to 10 times daily which they state is not atypical. Patient states he thinks he has only used it a few times and his family at bedside states more than a few but not 10 times total. He is normally at 3.5 L nasal cannula at home. Patient and family both state he was not really worse until today. Patient also has a known aneurysm which he has seen vascular surgery they are currently monitoring it at this time family indicates it is in his abdomen but there is also indication from the EMR that he may have one behind his knee. Related Data Previous Rx's Medication Instructions Recorded atorvastatin 10 mg tablet 10 mg PO BEDTIME #90 tab 10/15/20 fluticasone 500 mcg-salmeterol 50 1 inh INHALATION BID #120 ea 10/15/20 mcg/dose blistr powdr for inhalation ipratropium 0.5 mg-albuterol 3 mg 3 ml INHALATION Q4-6H PRN #540 ml 10/15/20 (2.5 mg base)/3 mL nebulization MDD 6 times per day soln ipratropium 20 mcg-albuterol 100 1 puff INHALATION QID #12 g 10/15/20 mcg/actuation mist for inhalation lisinopril 10 mg tablet 10 mg PO DAILY #90 tab 10/15/20 nebulizers #1 ea 10/15/20 nicotine 21 mg/24 hr daily 1 patch TRANSDERMAL DAILY #28 ea 10/15/20 transdermal patch apixaban 5 mg tablet 5 mg PO BID #180 tab 02/10/21 digoxin 125 mcg (0.125 mg) tablet 125 mcg PO DAILY #90 tab 02/10/21 prednisone 10 mg tablet 10 mg PO DAILY #60 tab 02/10/21 ferrous sulfate 324 mg (65 mg 324 mg PO BID #60 tab 02/25/21 iron) tablet,delayed release furosemide 20 mg tablet 20 mg PO QAM #90 tab 02/25/21 albuterol sulfate 90 mcg/actuation 2 puff INHALATION Q4-6H PRN #18 g 03/04/21 aerosol inhaler aspirin 81 mg tablet,delayed 81 mg PO DAILY #90 tab 03/04/21 release diltiazem HCl 240 mg 240 mg PO DAILY #90 cap 03/09/21 capsule,extended release 24 hr furosemide [Lasix] 40 mg PO DAILY #6 tab 03/09/21 Allergies Allergy/AdvReac Type Severity Reaction Status Date / Time No Known Drug Allergies Allergy Verified 03/09/21 16:38 Review of Systems Review of Systems ROS Unobtainable: All systems reviewed & are unremarkable except as noted in HPI and below Patient History Medical History Aneurysm Chronic cough COPD (chronic obstructive pulmonary disease) Hearing loss History of emphysema Oxygen dependent Sleep apnea Surgical History History of bladder surgery Family History (Updated 01/09/21 @ 03:28 by BOB Ni) Father No significant medical problems Mother Medical history unknown Social History household members: children Smoking Status: Former smoker Tobacco: How many years used: 30 Smokeless tobacco user: chewing tobacco (former ) quit status: not considering quitting (Daughter is weaning pt off ) alcohol intake: former substance use type: does not use Smoking Status: Former smoker tobacco type: cigarettes alcohol intake frequency: 0-2 drinks per day Substance Use Type: does not use Exam Narrative Exam Narrative: GENERAL: Alert and oriented, pleasant elderly male in mild distress. HEENT: Head normocephalic, atraumatic, EOMI, pupils reactive, face symmetric, moist mucous membranes NECK: Supple, full range of motion CARDIOVASCULAR: Irregularly irregular rate and rhythm without murmurs, rubs or gallops. No JVD. Patient has bilateral lower extremity edema. RESPIRATORY: Breath sounds equal bilaterally, mild wheezes bilaterally, no rales or rhonchi appreciated. No tachypnea. No accessory muscle use. ABDOMEN: Soft, nontender. Normoactive bowel sounds all 4 quadrants. No guard ing or rebound, rigidity, no mass : No CVA tenderness EXTREMITIES: Normal range of motion, no clubbing. Neurovascularly intact. NEUROLOGICAL: Cranial nerves II through XII grossly intact. Moving all extremities SKIN: Warm, dry, no petechiae, no rashes or lesions. 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) Stat Discontinued Medications Furosemide (Furosemide 100 Mg/10 Ml Vial) 60 mg IV NOW ONE Stop: 03/09/21 18:16 Last Admin: 03/09/21 19:04 Dose: 60 mg Documented by: DARYA Methylprednisolone (Methylprednisolone 125 Mg/2 Ml Vial) 125 mg IV NOW ONE Stop: 03/09/21 18:35 Last Admin: 03/09/21 19:04 Dose: 125 mg Documented by: DARYA Vital Signs Vital signs: Vital Signs - 8 hr 03/09/21 19:00 03/09/21 19:30 03/09/21 19:42 Pulse Rate 80 85 82 Respiratory Rate 26 H 24 21 Blood Pressure 130/63 Pulse Oximetry 99 99 99 03/09/21 20:00 03/09/21 20:30 Pulse Rate 83 88 Respiratory Rate 19 23 Blood Pressure 130/67 141/72 H Pulse Oximetry 98 98 MDM - SOB/Dyspnea Lab Data Attestation: I reviewed the patient's lab results. Result diagrams: 03/09/21 17:30 03/09/21 17:30 Labs: Lab Results 03/09/21 03/09/21 03/09/21 Range/Units 17:30 17:30 17:30 WBC 9.9 (4.5-11.0) X10^3/uL RBC 2.58 L (4.5-5.9) X10^6/uL Hgb 7.0 L (13.5-17.5) g/dL Hct 23.1 L (41-53) % MCV 89.6 (80-100) fL MCH 27.2 (26-34) PG MCHC 30.3 (30-36) % RDW 24.9 H (11.6-14.8) % Plt Count 336 (150-400) X10^3/uL Neut % (Auto) 80.3 H (50-75) % Lymph % (Auto) 9.5 L (25-40) % [place] % (Auto) 9.3 (3-14) % Eos % (Auto) 0.3 L (2-4) % Baso % (Auto) 0.6 (0-2) % Neut # (Auto) 8000 H (3314-9183) /uL Lymph # (Auto) 900 L (6398-9958) /uL [place] # (Auto) 900 (0-900) /uL Eos # (Auto) 0 (0-450) /uL Baso # (Auto) 100 (0-100) /uL RBC Morphology See below Hypochromasia 2+ H Poikilocytosis 2+ H Anisocytosis 2+ H Target Cells 2+ H [place] Cells 2+ H Sodium 139 (137-145) mmol/L Potassium 4.3 (3.4-5.1) mmol/L Chloride 103 (98-107) mmol/L Carbon Dioxide 31 (22-32) mmol/L BUN 23 H (9-20) mg/dL Creatinine 1.29 H (0.66-1.25) mg/dL Estimated GFR 53.7 L (>60) mL/min BUN/Creatinine Ratio 17.8 (6-22) Glucose 120 H (80-110) mg/dL Lactate 2.0 (0.7-2.1) mmol/L Calcium 8.5 (8.4-10.2) mg/dL Total Bilirubin 0.2 (0.2-1.3) mg/dL AST 25 (17-59) IU/L ALT 22 (<50) IU/L Alkaline Phosphatase 64 (38-126) U/L Total Creatine Kinase (55-170) U/L CK-MB (CK-2) CK-MB (CK-2) Rel Index Troponin I (0.01-0.034) ng/mL NT-Pro-B Natriuret Pep (<450) pg/mL Total Protein 6.1 L (6.3-8.2) g/dL Albumin 3.5 (3.5-5.0) g/dL Globulin 2.6 (1.7-4.1) g/dL Albumin/Globulin Ratio 1.3 (1.0-2.8) SARS-CoV-2 (PCR) (Negative) 03/09/21 03/09/21 Range/Units 17:30 19:18 WBC (4.5-11.0) X10^3/uL RBC (4.5-5.9) X10^6/uL Hgb (13.5-17.5) g/dL Hct (41-53) % MCV (80-100) fL MCH (26-34) PG MCHC (30-36) % RDW (11.6-14.8) % Plt Count (150-400) X10^3/uL Neut % (Auto) (50-75) % Lymph % (Auto) (25-40) % [place] % (Auto) (3-14) % Eos % (Auto) (2-4) % Baso % (Auto) (0-2) % Neut # (Auto) (7672-8246) /uL Lymph # (Auto) (7071-0499) /uL [place] # (Auto) (0-900) /uL Eos # (Auto) (0-450) /uL Baso # (Auto) (0-100) /uL RBC Morphology Hypochromasia Poikilocytosis Anisocytosis Target Cells [place] Cells Sodium (137-145) mmol/L Potassium (3.4-5.1) mmol/L Chloride (98-107) mmol/L Carbon Dioxide (22-32) mmol/L BUN (9-20) mg/dL Creatinine (0.66-1.25) mg/dL Estimated GFR (>60) mL/min BUN/Creatinine Ratio (6-22) Glucose (80-110) mg/dL Lactate (0.7-2.1) mmol/L Calcium (8.4-10.2) mg/dL Total Bilirubin (0.2-1.3) mg/dL AST (17-59) IU/L ALT (<50) IU/L Alkaline Phosphatase (38-126) U/L Total Creatine Kinase 79 (55-170) U/L CK-MB (CK-2) TNP CK-MB (CK-2) Rel Index TNP Troponin I < 0.012 (0.01-0.034) ng/mL NT-Pro-B Natriuret Pep 2980 H (<450) pg/mL Total Protein (6.3-8.2) g/dL Albumin (3.5-5.0) g/dL Globulin (1.7-4.1) g/dL Albumin/Globulin Ratio (1.0-2.8) SARS-CoV-2 (PCR) Negative (Negative) Imaging Data Chest x-ray: Radiologist's Impression: [address] [id number] ReportSigned Patient: Ramon Mosquera EMR#: [id number]: 2Acct:[id number]/Sex: 81 / MDate of Service: 03/09/21Loc: EDAccession Number: [id number] Procedure: XR chest 2V Ordering Provider: Teresa Chavira D.O. PROCEDURE: XR CHEST 2V INDICATIONS: shortness of breath TECHNIQUE: 2 views of the chest were acquired. COMPARISON: [facility], CT, CT ANGIO CHEST PE PROTOCOL, 01/08/2021, 19:30. [facility], CR, XR CHEST 2V, 01/08/2021, 18:07. [facility], CR, XR CHEST 2V, 02/05/2021, 18:40. FINDINGS: Surgical changes and devices: None. Lungs and pleura: Mild hyperinflation consistent with COPD. Left basilar opacity may be infiltrate, scars or atelectasis. No pleural effusions or pneumothorax. Mediastinum: Mediastinal contours are normal. Heart size is normal. Bones and chest wall: No suspicious bony abnormalities. Soft tissues appear unremarkable. IMPRESSION: 1. Left basilar opacity may be infiltrate, scars or atelectasis. Recommend follow-up to resolution. 2. COPD. Dictated by: Nelly Ojeda M.D. on 03/09/2021 at 17:33 Approved by: Nelly Ojeda M.D. on 03/09/2021 at 17:36 ECG Data Attestation: I personally reviewed and interpreted this ECG as follows: Prior ECG tracings: available for review Interpretation: AFib with a rate of 79 QRS 76 and QTC of 392 prior EKG from 02/05/[address] changes noted also shows AFib. None are appreciated today. MDM Narrative Medical decision making narrative: Is a 81-year-old male who himself denies any current symptoms but family appreciates 2 lb weight gain last 24 hours, significant increase in fluid intake in last 24 hours as well as some activity changes and audible wheezing/gurgling in the last several hours today. It was noted patient had missed a dose of Lasix. He drank 6 bottles of gatorade in the last 24 hours which would fit with in exacerbation of CHF sitting with patient's elevated BNP and lower extremity edema. Patient's chest x-ray shows some basilar opacity but unclear etiology. His labs show a negative troponin, BNP of 2980, hemoglobin is 7 today and is on average in the 8 range. Patient has also had a slight increase in his creatinine since February 05. He does appear to be in atrial fibrillation but is rate controlled today. Patient had improvement in his wheezing after breathing treatment in the department. He received a dose of Solu-Medrol as well as Lasix in the department. Patient is seated vital signs appear very well and he does not appear distressed. After d iscussion with patient and family we offered discussion with the hospitalist for observation but they elect to return home. Family and patient both feel that he has improved, plan increase his Lasix to 40 mg for the next 3 days and re- evaluate. Patient has a scheduled appointment on the 20 of March was asked to try to have moved to a sooner date. Patient family were encouraged to return he has any worsening symptoms. Discharge Plan Departure Patient Disposition: Home Clinical Impression: CHF (congestive heart failure), COPD (chronic obstructive pulmonary disease) Instructions: DI for Heart Failure Activity Restrictions/Additional Instructions: Follow up with her physician in the next week for recheck. Call for an appointment or at least to have a phone visit. Increase your Lasix to 40 mg (2 tabs) daily for the next 3 days. Take your next dose of lasix in the morning. Prescription to [facility]. Continue all your other medications as prescribed. Do not drink 6 Gatorades daily this will worsen you congestive heart failure and your breathing. Please return for fevers, worsening shortness of breath, lightheadedness or passing out, new chest pain, weakness, persistent, worsening swelling in her extremities or other new or concerning symptoms. Prescriptions: New furosemide [Lasix] 20 mg tablet 40 mg PO DAILY Qty: 6 RF: 0 No Action ferrous sulfate 324 mg (65 mg iron) tablet,delayed release (DR/EC) 324 mg PO BID Qty: 60 RF: 0 furosemide 20 mg tablet 20 mg PO QAM Qty: 90 RF: 2 aspirin 81 mg tablet,delayed release (DR/EC) 81 mg PO DAILY Qty: 90 RF: 3 albuterol sulfate 90 mcg/actuation HFA aerosol inhaler 2 puff INHALATION Q4-6H PRN (Reason: Shortness Of Breath) Qty: 18 RF: 6 diltiazem HCl [Cardizem CD] 240 mg capsule,extended release 24hr 240 mg PO DAILY Qty: 90 RF: 1 prednisone 10 mg tablet 10 mg PO DAILY Qty: 60 RF: 1 apixaban 5 mg tablet 5 mg PO BID Qty: 180 RF: 1 digoxin 125 mcg (0.125 mg) tablet 125 mcg PO DAILY Qty: 90 RF: 1 fluticasone propion-salmeterol [Advair Diskus] 500-50 mcg/dose blister with device 1 inh INHALATION BID Qty: 120 RF: 6 Combivent Respimat 20-100 mcg/actuation mist 1 puff INHALATION QID Qty: 12 RF: 2 lisinopril 10 mg tablet 10 mg PO DAILY Qty: 90 RF: 1 atorvastatin 10 mg tablet 10 mg PO BEDTIME Qty: 90 RF: 1 ipratropium-albuterol 0.5 mg-3 mg(2.5 mg base)/3 mL solution for nebulization 3 ml inhalation Q4-6H MDD 6 times per day PRN (Reason: shortness of breath) Qty: 540 RF: 6 nicotine 21 mg/24 hr patch 24 hour 1 patch transdermal DAILY Qty: 28 RF: 1 (DME) Compact Compressor Nebulizer Misc See Rx Instructions .ROUTE .MEDSUPPLY Qty: 1 RF: 0 Referrals: Jose Luis Hudson, [Primary Care Provider] -
[2021-03-09 18:41] LABS: Anisocytosis 2+; Burr Cells 2+; Hypochromasia 2+; Poikilocytosis 2+; Target Cells 2+
[2021-03-09] MEDS: FUROSEMIDE 100 MG/10 ML VIAL 60 MG IV (19:04)
[2021-03-09] MEDS: methylPREDNISolone 125 MG/2 ML VIAL IV (19:04)
[2021-03-09 20:33] LABS: COVID19 - ADMIT (NP swab/PCR) Negative (Negative)
== END 2021-03-09 20:56 | disposition home or self-care (01) ==
PROVIDERS: Emergency Medicine; Emergency Provider Emergency Medicine; PCP Family Medicine
DX: I50.9 Heart failure, unspecified (principal); J44.9 Chronic obstructive pulmonary disease, unspecified; R79.89 Other specified abnormal findings of blood chemistry; Z20.822 Contact with and (suspected) exposure to COVID-19
CPT/HCPCS: 36415; 71046; 80053; 82550; 83605; 83880; 84484; 85025; 87635; 93005; 94640; 96374; 96375; 99284; 99285; C9803; J1940; J2930

== ENCOUNTER 2021-04-01 11:29 | Emergency (ER) | payer MEDICARE, OTHER, SELFPAY ==
[2021-01-08 22:19] VITALS: BMI 24.7
[2021-04-01] VITALS (32 sets, daily range): BP systolic 102–131; BP diastolic 52–79; PULSE 74–90; RESP 12–33; TEMP 36.6–37.1; O2SAT 86–99; BMI 31.1
--- NOTE | 2021-04-01 12:03 | DI.RAD.S_ITS ---
PROCEDURE: XR CHEST 1V INDICATIONS: SHORTNESS OF BREATH WITH EXERTION TECHNIQUE: One view of the chest was acquired. COMPARISON: [facility], CR, XR CHEST 1V, 07/10/2020, 13:56. FINDINGS: Surgical changes and devices: None. Lungs and pleura: Lungs are clear. No pleural effusions or pneumothorax. Mediastinum: Mediastinal contours appear normal. Heart size is normal. Bones and chest wall: Chronic right 8th rib fracture is stable. No suspicious bony lesions. Overlying soft tissues appear unremarkable. IMPRESSION: No acute cardiopulmonary disease process. Dictated by: Ranjana Cristobal MD, PhD on 04/01/2021 at 12:44 Approved by: Ranjana Cristobal MD, PhD on 04/01/2021 at 12:46
[2021-04-01 12:14] LABS: Add Manual Diff / Slide Review NO; Basophils Absolute Auto 0 /uL (0-100); Basophils Percent Auto 0.5 % (0-2); Eosinophils Absolute Auto 100 /uL (0-450); Eosinophils Percent Auto 0.9 % (2-4); Hematocrit 22.7 % (41-53); Hemoglobin 7.2 g/dL (13.5-17.5); Lymphocytes Absolute Auto 400 /uL (1100-4500); Lymphocytes Percent Auto 4.1 % (25-40); Mean Corpuscular HGB Conc 31.9 % (30-36); Mean Corpuscular Hemoglobin 27.2 PG (26-34); Mean Corpuscular Volume 85.2 fL (80-100); Monocytes Absolute Auto 700 /uL (0-900); Monocytes Percent Auto 6.1 % (3-14); Neutrophils Absolute Auto 9600 /uL (1500-7000); Neutrophils Percent Auto 88.4 % (50-75); Platelet Count 384 X10^3/uL (150-400); Red Blood Cell Count 2.66 X10^6/uL (4.5-5.9); Red Cell Distribution Width 19.7 % (11.6-14.8); White Blood Cell Count 10.8 X10^3/uL (4.5-11.0)
[2021-04-01 12:17] LABS: Alanine Aminotransferase 25 IU/L (<50); Albumin 3.7 g/dL (3.5-5.0); Albumin Globulin Ratio 1.4 (1.0-2.8); Alkaline Phosphatase 78 U/L (38-126); Aspartate Aminotransferase 27 IU/L (17-59); BUN Creatinine Ratio 15.1 (6-22); Bilirubin Total 0.3 mg/dL (0.2-1.3); Blood Urea Nitrogen 21 mg/dL (9-20); Calcium 8.8 mg/dL (8.4-10.2); Carbon Dioxide 31 mmol/L (22-32); Chloride 97 mmol/L (98-107); Estimated Glomerular Filt Rate 49.3 mL/min (>60); Globulin 2.7 g/dL (1.7-4.1); Glucose 120 mg/dL (80-110); HEMOLYSIS < 15 (0-50); Lactate (Lactic Acid) 2.2 mmol/L (0.7-2.1); Potassium 3.7 mmol/L (3.4-5.1); Sodium 136 mmol/L (137-145); Total Protein 6.4 g/dL (6.3-8.2)
[2021-04-01 12:25] LABS: COVID19 -Nasal RAPID Negative (Negative)
[2021-04-01 12:26] LABS: NT-proBNP (BNP-Adult 18+) 3950 pg/mL (<450)
[2021-04-01] MEDS: FUROSEMIDE 40 MG/4 ML VIAL IV (13:13)
[2021-04-01 13:26] LABS: Creatine Kinase 88 U/L (55-170)
[2021-04-01 13:39] LABS: Troponin I < 0.012 ng/mL (0.01-0.034)
[2021-04-01 13:59] LABS: Lipase 81 U/L (23-300)
[2021-04-01 14:07] LABS: Reflexed Lactate in 2 Hours Y
[2021-04-01 14:52] LABS: Lactate 2HR (Lactic Acid Rflx) 1.5 mmol/L (0.7-2.1)
--- NOTE | 2021-04-01 15:19 | ED.SOB ---
HPI - SOB/Dyspnea General Chief Complaint: Shortness of Breath/Dyspnea Stated Complaint: CHF/COPD exacerbation Time Seen by Provider: 04/01/21 12:37 Source: patient, family and EMS Mode of arrival: EMS Limitations: no limitations History of Present Illness HPI Narrative: Patient is a 81-year-old male with history of CHF congestive heart failure and anemia presenting with increasing shortness of breath according to family. He himself is an extremely poor historian and family is no longer at bedside. He states that he slept fine last night without any orthopnea and his daughter noticed he was having increasing shortness of breath. After walking from the waiting room to the emergency department he had an O2 sat of 86%. He states he is not normally on oxygen however multiple previous report states that he has home O2 and is usually on 2-3 L. he states he takes no medication which according to the med list is also wrong. Daughter states that he actually has been taking his 20 mg of Lasix twice a day and continues to have weight gain and increasing shortness of breath Related Data Previous Rx's Medication Instructions Recorded atorvastatin 10 mg tablet 10 mg PO BEDTIME #90 tab 10/15/20 fluticasone 500 mcg-salmeterol 50 1 inh INHALATION BID #120 ea 10/15/20 mcg/dose blistr powdr for inhalation (Advair Diskus) ipratropium 0.5 mg-albuterol 3 mg 3 ml INHALATION Q4-6H PRN #540 ml 10/15/20 (2.5 mg base)/3 mL nebulization MDD 6 times per day soln ipratropium 20 mcg-albuterol 100 1 puff INHALATION QID #12 g 10/15/20 mcg/actuation mist for inhalation (Combivent Respimat) lisinopril 10 mg tablet 10 mg PO DAILY #90 tab 10/15/20 nebulizers (Compact Compressor #1 ea 10/15/20 Nebulizer) nicotine 21 mg/24 hr daily 1 patch TRANSDERMAL DAILY #28 ea 10/15/20 transdermal patch apixaban 5 mg tablet 5 mg PO BID #180 tab 02/10/21 digoxin 125 mcg (0.125 mg) tablet 125 mcg PO DAILY #90 tab 02/10/21 ferrous sulfate 324 mg (65 mg 324 mg PO BID #60 tab 02/25/21 iron) tablet,delayed release aspirin 81 mg tablet,delayed 81 mg PO DAILY #90 tab 03/04/21 release diltiazem HCl 240 mg 240 mg PO DAILY #90 cap 03/09/21 capsule,extended release 24 hr (Cardizem CD) furosemide 20 mg tablet 20 mg PO BID #180 tab 03/13/21 albuterol sulfate 90 mcg/actuation 2 puff INHALATION Q4-6H PRN #18 g 03/16/21 aerosol inhaler omeprazole 20 mg capsule,delayed 20 mg PO BID #90 cap 03/16/21 release prednisone 10 mg tablet 10 mg PO DAILY #90 tab 03/16/21 furosemide 40 mg tablet (Lasix) 40 mg PO BID #8 tab 04/01/21 Allergies Allergy/AdvReac Type Severity Reaction Status Date / Time No Known Drug Allergies Allergy Verified 04/01/21 11:51 Review of Systems Review of Systems Narrative: GENERAL: Denies chills, fatigue, malaise, fever, sweats, travel HEENT: Denies sinus pain, ear pain, sore throat, difficulty swallowing, neck pain RESPIRATORY: Obvious cough dyspnea shortness of breaths CARDIOVASCULAR: Denies chest pain, palpitations, orthopnea GASTROINTESTINAL: Denies nausea, vomiting, abdominal pain, diarrhea, constipation, melena. : Denies dysuria, frequency, incontinence, hematuria, urinary retention, flank pain. MUSCULOSKELETAL: + edema Denies weakness, joint pain, or bony pain SKIN: No rash, no erythema, no pruritus NEUROLOGIC: Denies weakness, dizziness, headache, numbness, change in speech, confusion PSYCHIATRIC: No concerning psychosocial issues. 12 point review of systems is negative except for those stated above and HPI Patient History Medical History (Updated 04/01/21 @ 20:09 by Teresa Chavira DO) Aneurysm Chronic cough COPD (chronic obstructive pulmonary disease) Dyspepsia Hearing loss History of emphysema Oxygen dependent Sleep apnea Surgical History History of bladder surgery Family History (Updated 01/09/21 @ 03:28 by BOB Ni) Father No significant medical problems Mother Medical history unknown Social History household members: children Smoking Status: Former smoker Tobacco: How many years used: 30 Smokeless tobacco user: chewing tobacco (former ) quit status: not considering quitting (Daughter is weaning pt off ) alcohol intake: former substance use type: does not use Smoking Status: Former smoker tobacco type: cigarettes alcohol intake frequency: 0-2 drinks per day Substance Use Type: does not use Exam Initial Vital Signs Initial Vital Signs: Vital Signs Temperature 98.7 F 04/01/21 11:05 Pulse Rate 83 04/01/21 11:05 Respiratory Rate 28 H 04/01/21 11:05 Blood Pressure 119/57 L 04/01/21 11:05 Pulse Oximetry 91 04/01/21 11:05 GENERAL: 81-year-old male in mild respiratory distress and in no acute distress. HEENT: Head atraumatic,EOMI, pupils reactive, face symmetric, moist mucous membranes CARDIOVASCULAR: Regular rate and rhythm without murmurs, rubs or gallops. RESPIRATORY: Conversational dyspnea coarse breath sounds bilaterally ABDOMEN: Soft, nontender. Normoactive bowel sounds all 4 quadrants. No guarding or rebound. EXTREMITIES: +2 pitting in Normal range of motion, no clubbing. Neurovascularly intact NEUROLOGICAL: Alert and oriented x2.Normal gait and speech. SKIN: Warm, dry, no laceration, no petechiae, no rashes or lesions. Course Orders Ordered: ED Orders 04/01/21 11:40 COVID19 -Nasal swab/Pre-Proc Stat Complete Blood Count AUTO DIFF Stat Comprehensive Metabolic Panel Stat Lactate (Lactic Acid) Stat Lipase Stat NT-proBNP (BNP-Adult 18+) Stat 04/01/21 12:03 XR chest 1V Stat EKG-12 Lead Stat RT Consult Eval and Treat Now 04/01/21 13:14 Troponin & CK Cardiac Panel Stat 04/01/21 15:30 Packed Cells Stat Procalcitonin Stat Type and Screen Stat 04/01/21 15:35 COVID19 - ADMIT ([employer] swab/PCR) Stat Discontinued Medications Albuterol/Ipratropium (Albuterol/Ipratropium 3 Ml Ampul) 3 ml INH NOW ONE Stop: 04/01/21 15:30 Last Admin: 04/01/21 15:37 Dose: 3 ml Documented by: KEVIN Furosemide (Furosemide 40 Mg/4 Ml Vial) 40 mg IV NOW ONE Stop: 04/01/21 12:39 Last Admin: 04/01/21 13:13 Dose: 40 mg Documented by: MMERKEL Furosemide (Furosemide 40 Mg/4 Ml Vial) 20 mg IV NOW ONE Stop: 04/01/21 15:28 Last Admin: 04/01/21 19:56 Dose: 20 mg Documented by: CRISTEL Vital Signs Vital signs: Vital Signs - 8 hr 04/01/21 12:30 04/01/21 12:44 04/01/21 12:45 Temperature Pulse Rate 85 82 81 Respiratory Rate 20 22 20 Blood Pressure 105/66 110/62 Pulse Oximetry 91 93 93 04/01/21 13:00 04/01/21 13:30 04/01/21 14:00 Temperature Pulse Rate 82 87 78 Respiratory Rate 29 H 12 21 Blood Pressure 114/57 L 112/56 L 111/58 L Pulse Oximetry 94 93 95 04/01/21 14:08 04/01/21 14:30 04/01/21 14:31 Temperature Pulse Rate 81 77 Respiratory Rate 28 H 26 H 19 Blood Pressure 124/58 L Pulse Oximetry 86 L 95 95 04/01/21 15:00 04/01/21 15:30 04/01/21 15:42 Temperature Pulse Rate 78 76 86 Respiratory Rate 24 16 20 Blood Pressure 119/57 L 103/52 L Pulse Oximetry 95 95 95 04/01/21 16:00 04/01/21 16:15 04/01/21 16:30 Temperature Pulse Rate 76 85 80 Respiratory Rate 29 H 22 Blood Pressure 104/55 L 111/64 119/56 L Pulse Oximetry 94 99 93 04/01/21 16:48 04/01/21 17:00 04/01/21 17:18 Temperature 97.9 F Pulse Rate 83 76 83 Respiratory Rate 33 H 22 32 H Blood Pressure 131/79 109/52 L 131/77 Pulse Oximetry 93 91 04/01/21 17:30 04/01/21 17:33 04/01/21 17:36 Temperature 98.2 F Pulse Rate 82 85 86 Respiratory Rate 24 28 H 29 H Blood Pressure 110/57 L 110/58 L 110/58 L Pulse Oximetry 89 L 88 L 04/01/21 18:00 04/01/21 18:30 04/01/21 19:00 Temperature Pulse Rate 81 85 80 Respiratory Rate 26 H 27 H 20 Blood Pressure 102/60 127/60 111/59 L Pulse Oximetry 95 04/01/21 19:30 Temperature Pulse Rate 74 Respiratory Rate 30 H Blood Pressure 119/58 L Pulse Oximetry MDM - SOB/Dyspnea Lab Data Result diagrams: 04/01/21 11:40 04/01/21 11:40 Labs: Lab Results 04/01/21 04/01/21 04/01/21 Range/Units 11:40 11:40 11:40 WBC 10.8 (4.5-11.0) X10^3/uL RBC 2.66 L (4.5-5.9) X10^6/uL Hgb 7.2 L (13.5-17.5) g/dL Hct 22.7 L (41-53) % MCV 85.2 (80-100) fL MCH 27.2 (26-34) PG MCHC 31.9 (30-36) % RDW 19.7 H (11.6-14.8) % Plt Count 384 (150-400) X10^3/uL Neut % (Auto) 88.4 H (50-75) % Lymph % (Auto) 4.1 L (25-40) % [place] % (Auto) 6.1 (3-14) % Eos % (Auto) 0.9 L (2-4) % Baso % (Auto) 0.5 (0-2) % Neut # (Auto) 9600 H (7190-4266) /uL Lymph # (Auto) 400 L (7440-8943) /uL [place] # (Auto) 700 (0-900) /uL Eos # (Auto) 100 (0-450) /uL Baso # (Auto) 0 (0-100) /uL Sodium 136 L (137-145) mmol/L Potassium 3.7 (3.4-5.1) mmol/L Chloride 97 L (98-107) mmol/L Carbon Dioxide 31 (22-32) mmol/L BUN 21 H (9-20) mg/dL Creatinine 1.39 H (0.66-1.25) mg/dL Estimated GFR 49.3 L (>60) mL/min BUN/Creatinine Ratio 15.1 (6-22) Glucose 120 H (80-110) mg/dL Lactate 2.2 H (0.7-2.1) mmol/L Calcium 8.8 (8.4-10.2) mg/dL Total Bilirubin 0.3 (0.2-1.3) mg/dL AST 27 (17-59) IU/L ALT 25 (<50) IU/L Alkaline Phosphatase 78 (38-126) U/L Total Creatine Kinase (55-170) U/L CK-MB (CK-2) CK-MB (CK-2) Rel Index Troponin I (0.01-0.034) ng/mL NT-Pro-B Natriuret Pep 3950 H (<450) pg/mL Total Protein 6.4 (6.3-8.2) g/dL Albumin 3.7 (3.5-5.0) g/dL Globulin 2.7 (1.7-4.1) g/dL Albumin/Globulin Ratio 1.4 (1.0-2.8) Lipase (23-300) U/L Procalcitonin (<0.5) ng/mL SARS-CoV-2 (PCR) (Negative) Blood Type Antibody Screen Crossmatch 04/01/21 04/01/21 04/01/21 Range/Units 11:40 11:40 13:14 WBC (4.5-11.0) X10^3/uL RBC (4.5-5.9) X10^6/uL Hgb (13.5-17.5) g/dL Hct (41-53) % MCV (80-100) fL MCH (26-34) PG MCHC (30-36) % RDW (11.6-14.8) % Plt Count (150-400) X10^3/uL Neut % (Auto) (50-75) % Lymph % (Auto) (25-40) % [place] % (Auto) (3-14) % Eos % (Auto) (2-4) % Baso % (Auto) (0-2) % Neut # (Auto) (2146-3615) /uL Lymph # (Auto) (3413-0785) /uL [place] # (Auto) (0-900) /uL Eos # (Auto) (0-450) /uL Baso # (Auto) (0-100) /uL Sodium (137-145) mmol/L Potassium (3.4-5.1) mmol/L Chloride (98-107) mmol/L Carbon Dioxide (22-32) mmol/L BUN (9-20) mg/dL Creatinine (0.66-1.25) mg/dL Estimated GFR (>60) mL/min BUN/Creatinine Ratio (6-22) Glucose (80-110) mg/dL Lactate (0.7-2.1) mmol/L Calcium (8.4-10.2) mg/dL Total Bilirubin (0.2-1.3) mg/dL AST (17-59) IU/L ALT (<50) IU/L Alkaline Phosphatase (38-126) U/L Total Creatine Kinase 88 (55-170) U/L CK-MB (CK-2) TNP CK-MB (CK-2) Rel Index TNP Troponin I < 0.012 (0.01-0.034) ng/mL NT-Pro-B Natriuret Pep (<450) pg/mL Total Protein (6.3-8.2) g/dL Albumin (3.5-5.0) g/dL Globulin (1.7-4.1) g/dL Albumin/Globulin Ratio (1.0-2.8) Lipase 81 (23-300) U/L Procalcitonin (<0.5) ng/mL SARS-CoV-2 (PCR) Negative (Negative) Blood Type Antibody Screen Crossmatch 04/01/21 04/01/21 04/01/21 Range/Units 14:31 15:30 15:30 WBC (4.5-11.0) X10^3/uL RBC (4.5-5.9) X10^6/uL Hgb (13.5-17.5) g/dL Hct (41-53) % MCV (80-100) fL MCH (26-34) PG MCHC (30-36) % RDW (11.6-14.8) % Plt Count (150-400) X10^3/uL Neut % (Auto) (50-75) % Lymph % (Auto) (25-40) % [place] % (Auto) (3-14) % Eos % (Auto) (2-4) % Baso % (Auto) (0-2) % Neut # (Auto) (4939-6845) /uL Lymph # (Auto) (6846-3724) /uL [place] # (Auto) (0-900) /uL Eos # (Auto) (0-450) /uL Baso # (Auto) (0-100) /uL Sodium (137-145) mmol/L Potassium (3.4-5.1) mmol/L Chloride (98-107) mmol/L Carbon Dioxide (22-32) mmol/L BUN (9-20) mg/dL Creatinine (0.66-1.25) mg/dL Estimated GFR (>60) mL/min BUN/Creatinine Ratio (6-22) Glucose (80-110) mg/dL Lactate 1.5 (0.7-2.1) mmol/L Calcium (8.4-10.2) mg/dL Total Bilirubin (0.2-1.3) mg/dL AST (17-59) IU/L ALT (<50) IU/L Alkaline Phosphatase (38-126) U/L Total Creatine Kinase (55-170) U/L CK-MB (CK-2) CK-MB (CK-2) Rel Index Troponin I (0.01-0.034) ng/mL NT-Pro-B Natriuret Pep (<450) pg/mL Total Protein (6.3-8.2) g/dL Albumin (3.5-5.0) g/dL Globulin (1.7-4.1) g/dL Albumin/Globulin Ratio (1.0-2.8) Lipase (23-300) U/L Procalcitonin 0.19 (<0.5) ng/mL SARS-CoV-2 (PCR) (Negative) Blood Type A Positive Antibody Screen Negative Crossmatch See Detail 04/01/21 Range/Units 15:35 WBC (4.5-11.0) X10^3/uL RBC (4.5-5.9) X10^6/uL Hgb (13.5-17.5) g/dL Hct (41-53) % MCV (80-100) fL MCH (26-34) PG MCHC (30-36) % RDW (11.6-14.8) % Plt Count (150-400) X10^3/uL Neut % (Auto) (50-75) % Lymph % (Auto) (25-40) % [place] % (Auto) (3-14) % Eos % (Auto) (2-4) % Baso % (Auto) (0-2) % Neut # (Auto) (2497-4082) /uL Lymph # (Auto) (3844-7055) /uL [place] # (Auto) (0-900) /uL Eos # (Auto) (0-450) /uL Baso # (Auto) (0-100) /uL Sodium (137-145) mmol/L Potassium (3.4-5.1) mmol/L Chloride (98-107) mmol/L Carbon Dioxide (22-32) mmol/L BUN (9-20) mg/dL Creatinine (0.66-1.25) mg/dL Estimated GFR (>60) mL/min BUN/Creatinine Ratio (6-22) Glucose (80-110) mg/dL Lactate (0.7-2.1) mmol/L Calcium (8.4-10.2) mg/dL Total Bilirubin (0.2-1.3) mg/dL AST (17-59) IU/L ALT (<50) IU/L Alkaline Phosphatase (38-126) U/L Total Creatine Kinase (55-170) U/L CK-MB (CK-2) CK-MB (CK-2) Rel Index Troponin I (0.01-0.034) ng/mL NT-Pro-B Natriuret Pep (<450) pg/mL Total Protein (6.3-8.2) g/dL Albumin (3.5-5.0) g/dL Globulin (1.7-4.1) g/dL Albumin/Globulin Ratio (1.0-2.8) Lipase (23-300) U/L Procalcitonin (<0.5) ng/mL SARS-CoV-2 (PCR) Negative (Negative) Blood Type Antibody Screen Crossmatch Urine Dip Bedside Urine Glucose Negative Bedside Urine Bilirubin - Negative Bedside Urine Ketone - Negative Urine Specific [place] 1.015 Bedside Urine Occult Blood - Negative Bedside Urine pH 6.0 Bedside Urine Protein - Negative Bedside Urine Urobilinogen - Negative Bedside Urine Nitrite - Negative Bedside Urine Leukocytes - Negative Esterase ECG Data Interpretation: Atrial fibrillation rate [address] changes or T-wave inversions MDM Narrative Medical decision making narrative: Patient does have history of COPD and CHF however he certainly sounds wet and has peripheral edema and abdominal swelling. This seems to be more congestive heart failure rather than COPD exacerbation at this time. She is he has now been seen in the emergency department twice this month and once by his primary care provider. He has an elevated BNP higher than normal. He is also found to have anemia which is baseline does not seem to be significantly worse however it may be contributing to his persistent and worsening shortness of breath. He is transfused 1 unit of blood. His primary care provider is aware of his anemia seems to be working on. I discussed case with the hospitalist at this time he recommends is diuresis at home. Patient has oxygen at home and can use it as needed. Will increase his Lasix to 40 mg twice a day Discharge Plan Departure Patient Disposition: Home Clinical Impression: Congestive heart failure Qualifiers: Heart failure type: unspecified Heart failure chronicity: unspecified Qualified Code(s): I50.9 - Heart failure, unspecified Instructions: DI for Heart Failure Activity Restrictions/Additional Instructions: *You have been diagnosed with congestive heart failure and anemia *What to do: At this time please have your blood levels rechecked with her primary care provider. We will also increase your furosemide. This should help with her swelling in her abdomen and legs and help your breathing as well *Continue to take medications as directed--> SENT TO DOD Lasix 40 mg twice a day for the next 4 days, then please call your primary care provider for advice *Follow up with your primary care provider in 2-3 days *Return to ER if you should have increasing shortness of breath, fever, confusion or any new, worsening or concerning symptoms Prescriptions: New furosemide [Lasix] 40 mg tablet 40 mg PO BID Qty: 8 RF: 0 No Action ferrous sulfate 324 mg (65 mg iron) tablet,delayed release (DR/EC) 324 mg PO BID Qty: 60 RF: 0 aspirin 81 mg tablet,delayed release (DR/EC) 81 mg PO DAILY Qty: 90 RF: 3 diltiazem HCl [Cardizem CD] 240 mg capsule,extended release 24hr 240 mg PO DAILY Qty: 90 RF: 1 furosemide 20 mg tablet 20 mg PO BID Qty: 180 RF: 2 prednisone 10 mg tablet 10 mg PO DAILY Qty: 90 RF: 1 omeprazole 20 mg capsule,delayed release(DR/EC) 20 mg PO BID Qty: 90 RF: 1 albuterol sulfate 90 mcg/actuation HFA aerosol inhaler 2 puff INHALATION Q4-6H PRN (Reason: Shortness Of Breath) Qty: 18 RF: 6 apixaban 5 mg tablet 5 mg PO BID Qty: 180 RF: 1 digoxin 125 mcg (0.125 mg) tablet 125 mcg PO DAILY Qty: 90 RF: 1 fluticasone propion-salmeterol [Advair Diskus] 500-50 mcg/dose blister with device 1 inh INHALATION BID Qty: 120 RF: 6 Combivent Respimat 20-100 mcg/actuation mist 1 puff INHALATION QID Qty: 12 RF: 2 lisinopril 10 mg tablet 10 mg PO DAILY Qty: 90 RF: 1 atorvastatin 10 mg tablet 10 mg PO BEDTIME Qty: 90 RF: 1 ipratropium-albuterol 0.5 mg-3 mg(2.5 mg base)/3 mL solution for nebulization 3 ml inhalation Q4-6H MDD 6 times per day PRN (Reason: shortness of breath) Qty: 540 RF: 6 nicotine 21 mg/24 hr patch 24 hour 1 patch transdermal DAILY Qty: 28 RF: 1 (DME) Compact Compressor Nebulizer Misc See Rx Instructions .ROUTE .MEDSUPPLY Qty: 1 RF: 0 Referrals: Jose Luis Hudson, [Primary Care Provider] -
[2021-04-01] MEDS: ALBUTEROL/IPRATROPIUM 3 ML AMPUL INH (15:37)
[2021-04-01 16:19] LABS: Procalcitonin 0.19 ng/mL (<0.5)
[2021-04-01 16:51] LABS: COVID19 - ADMIT (NP swab/PCR) Negative (Negative)
[2021-04-01] MEDS: FUROSEMIDE 40 MG/4 ML VIAL 20 MG IV (19:56)
== END 2021-04-01 21:43 | disposition home or self-care (01) ==
PROVIDERS: Emergency Medicine; Emergency Provider Emergency Medicine; PCP Family Medicine
DX: I50.9 Heart failure, unspecified (principal); J44.9 Chronic obstructive pulmonary disease, unspecified; Z20.822 Contact with and (suspected) exposure to COVID-19
CPT/HCPCS: 36415; 36430; 71045; 80053; 81003; 82550; 83605; 83690; 83880; 84145; 84484; 85025; 86850; 86900; 86901; 87635; 93005; 94640; 96374; 96376; 99285; C9803; P9016; J1940

== ENCOUNTER → 2021-04-07 08:11 | Outpatient (CLI) | payer MEDICARE, OTHER, SELFPAY ==
[2021-01-08 22:19] VITALS: BMI 24.7
--- NOTE | 2021-04-07 08:14 | DI.ECHO.S_ITS ---
Version: 1 Study ID: [id number] [place] [address] Name: NOY LORENZ Study Date: 04/07/2021, 8: 26 AM : 1940 BP: 310 / 73 mmHg Gender: Male Height: 68 in Age: 81 Years Weight: 188.2 lb BSA: 1.99 mA? Ordering: KUNAL AYALA Referring: KUNAL AYALA Clinician: Mai Acosta Reason For Study: CONGESTIVE HEART FAILURE History: Summary Statements Afib with controlled rate. Normal LV size and wall thickness; normal wall motion and LV systolic function. EF is 60-65%. Severe LA enlargement; mild RA enlargement; borderline RV enlargement. Moderate MAC; otherwise no significant valvular abnormalities. Compared to prior study 01/09/2021 LA enlargement progressed from mild to severe. Procedure: A two-dimensional transthoracic echocardiogram with color flow and Doppler was performed. The study quality was technically adequate. Comparison is made with the echocardiogram of 01/09/2021. The patient was in atrial fibrillation with heart rates between 75-90 bpm during the exam. Left Ventricle: Diastolic function could not be accurately assessed due to atrial fibrillation. The ejection fraction is estimated to be 60-65%. The left ventricle is normal in size and wall thickness. Right Ventricle: The right ventricular systolic function is normal. Borderline right ventricular enlargement. Atria: There is no Doppler evidence for an interatrial shunt. The left atrium is severely dilated. The right atrium is mildly dilated. Mitral Valve: There is trace mitral regurgitation. There is moderate mitral annular calcification. The mitral valve leaflets appear mildly thickened, but open well. Aortic Valve: No aortic regurgitation is present. There is no aortic valve stenosis. The aortic valve is trileaflet. The aortic valve is mildly calcified. The aortic valve opens well. Tricuspid Valve: There is mild to moderate tricuspid regurgitation. The right ventricular systolic pressure is estimated to be at least 41 mmHg based on an estimated right atrial pressure of 3 mm Hg. The tricuspid valve leaflets are thin and pliable. Pulmonic Valve: There is no pulmonic valvular regurgitation. The pulmonic valve is not well seen, but is grossly normal. Great Vessels: The ascending aorta is mildly enlarged. The aortic root is normal size. The IVC is of normal diameter and collapses greater than 50% with a sniff. This suggests a low right atrial pressure of 3 mm Hg. Pericardium/ Pleura: There is no pericardial effusion. There is no pleural effusion. 2D and M-Mode Measurements and Calculations LVIDd: 4.7 cm LVOT diam: 2.12 cm LVIDs: 3.0 cm Ao root diam: 3.1 cm IVSd: 0.83 cm asc Aorta Diam: 3.4 cm LVPWd: 0.99 cm LV major. diameter/BSA (cm/m^2): 2.35 LV sys. diameter/BSA (cm/m^2): 1.49 EPSS: 0.83 cm RVD1 (basal): 4.1 cm IVC diam: 1.59 cm TAPSE: 2.8 cm LA A4 area: 24.6 finance professor? RA area: 23.8 finance professor? LA A2 area: 30.6 finance professor? RA long axis: 6.3 cm LA length (vol): 6.4 cm RA vol: 76.2 ml LA vol: 100.1 ml RA : 38.2 ml/mA? LA vol index: 50.2 ml/mA? Doppler Measurements and Calculations Ao V2 max: 151.3 cm/sec LVOT Max Natanael: 144.3 cm/sec Ao V2 mean: 103.4 cm/sec LV V1 max P.4 mmHg Ao V2 VTI: 25.7 cm LV V1 VTI: 24.1 cm Ao max P.2 mmHg Ao mean P.8 mmHg MARCOS(I,D): 3.3 finance professor? MARCOS(V,D): 3.4 finance professor? MARCOS indexed to BSA (cm^2/m^2): 1.67 sev ratio: 0.94 MV E max natanael: 113.5 cm/sec MV dec time: 0.22 sec MV A max natanael: 2.05 cm/sec MV E/A: 55.5 Med Peak E' Natanael: 12.9 cm/sec Lat Peak E' Natanael: 10.4 cm/sec E/e' average: 9.9 TR max natanael: 306.6 cm/sec TR max P.6 mmHg Electronically signed by: Miguelina Carter M.D. 04/08/2021, 12: 13 AM
== END ==
PROVIDERS: PCP Family Medicine; Referring Provider Family Medicine; Visit Provider Family Medicine
DX: I07.1 Rheumatic tricuspid insufficiency (principal); I77.89 Other specified disorders of arteries and arterioles; I50.9 Heart failure, unspecified; I48.91 Unspecified atrial fibrillation
CPT/HCPCS: 93306

== ENCOUNTER 2021-04-07 09:23 | Emergency (ER) | payer MEDICARE, OTHER, SELFPAY ==
[2021-01-08 22:19] VITALS: BMI 24.7
[2021-04-07] VITALS (11 sets, daily range): BP systolic 107–124; BP diastolic 52–86; PULSE 70–95; RESP 15–24; TEMP 36.7–36.8; O2SAT 91–100
--- NOTE | 2021-04-07 11:09 | DI.RAD.S_ITS ---
PROCEDURE: XR CHEST 1V INDICATIONS: chest pain TECHNIQUE: One view of the chest was acquired. COMPARISON: [facility], CT, CT ANGIO CHEST PE PROTOCOL, 01/08/2021, 19:30. [facility], CR, XR CHEST 1V, 04/01/2021, 12:19. [facility], CR, XR CHEST 2V, 03/09/2021, 16:50. FINDINGS: Surgical changes and devices: None. Lungs and pleura: Mild streaky opacity at the left lung base, similar to prior exam. Emphysematous change. No pleural effusions or pneumothorax. Mediastinum: Mediastinal contours appear normal. Heart size is normal. Bones and chest wall: No suspicious bony lesions. Overlying soft tissues appear unremarkable. IMPRESSION: Mild streaky opacity at the left lung base. Likely atelectasis or scarring. Emphysematous change. Dictated by: Dean Peters M.D. on 04/07/2021 at 11:47 Approved by: Dean Peters M.D. on 04/07/2021 at 11:51
--- NOTE | 2021-04-07 11:17 | ED.SEPSIS ---
HPI - Sepsis General Chief Complaint: Shortness of Breath/Dyspnea Mode of arrival: Wheelchair Source: patient and other Evaluation Sepsis Screen: No Definite Risk Sepsis Infection Criteria Present: None Narrative: This is a 81-year-old male comes emergency department with increased shortness of breath cording to his daughter. Patient has been seen here twice the last 4 months for similar symptoms. He was diuresed the 1st time outpatient. Second time he did have 1 unit of packed red blood cells for chronic anemia. Patient was discharged home on 40 mg x 4 days. And then he is now back to his normal 20 mg. He does have COPD as well and daughter states he has been wheezy. He has continued to have shortness of breath. Patient himself states he feels fine. He states he does not feel significantly worse. Denies any chest pain or pressure. No lightheadedness or passing out. No nausea or vomiting. No other GI or urinary symptoms. Daughter notes that there was a drop of blood in the bathroom and several spots but she does not know what it is from. Patient is unable to tell me. He has not appreciated any rectal pain, hemorrhoids or blood in urine recently. Had no wounds cuts or scrapes that he is aware of. Patient has not had his albuterol today. He is anticoagulated on apixaban. Patient takes multiple medications for CHF as well as his COPD. 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 Review of Systems Review of Systems ROS Unobtainable: All systems reviewed & are unremarkable except as noted in HPI and below Patient History Medical History Aneurysm Chronic cough COPD (chronic obstructive pulmonary disease) Dyspepsia Hearing loss History of emphysema Oxygen dependent Sleep apnea Surgical History History of bladder surgery Family History (Updated 01/09/21 @ 03:28 by BOB Ni) Father No significant medical problems Mother Medical history unknown Social History household members: children Smoking Status: Former smoker Tobacco: How many years used: 30 Smokeless tobacco user: chewing tobacco (former ) quit status: not considering quitting (Daughter is weaning pt off ) alcohol intake: former substance use type: does not use Smoking Status: Former smoker tobacco type: cigarettes alcohol intake frequency: 0-2 drinks per day Substance Use Type: does not use Exam Narrative Exam Narrative: GENERAL: Alert and oriented x three, elderly male in mild distress. Patient is on his home joint nasal cannula at 2 L HEENT: Head normocephalic, atraumatic, EOMI, pupils reactive, face symmetric, moist mucous membranes NECK: Supple, full range of motion CARDIOVASCULAR: Regular rate and rhythm without murmurs, rubs or gallops. 2+ edema bilateral lower extremities. RESPIRATORY: Breath sounds equal bilaterally, positive bilateral wheezes, no rales or rhonchi. ABDOMEN: Soft, nontender. Normoactive bowel sounds all 4 quadrants. No guarding or rebound, rigidity, no mass, guiac negative on rectal exam with no large mass, stool is brown. : No CVA tenderness EXTREMITIES: Normal range of motion. Neurovascularly intact NEUROLOGICAL: Cranial nerves II through XII grossly intact. Moving all extremities SKIN: Warm, dry, no petechiae, no rashes or lesions, lacerations noted. Initial Vital Signs Initial Vital Signs: Vital Signs Temperature 98.1 F 04/07/21 09:42 Pulse Rate 78 04/07/21 09:42 Respiratory Rate 18 04/07/21 09:42 Blood Pressure 124/60 04/07/21 09:42 Pulse Oximetry 100 04/07/21 09:42 Course Orders Ordered: Discontinued Medications Albuterol/Ipratropium (Albuterol/Ipratropium 3 Ml Ampul) 3 ml INH NOW ONE Stop: 04/07/21 11:31 Last Admin: 04/07/21 12:12 Dose: 3 ml Documented by: GEM Methylprednisolone (Methylprednisolone 125 Mg/2 Ml Vial) 125 mg IV NOW ONE Stop: 04/07/21 13:34 Last Admin: 04/07/21 13:39 Dose: 125 mg Documented by: SOLOMON Reevaluation(s) Reevaluation #1: Patient feel the same after medications. Patient himself has minimal complaints. Vital Signs Vital signs: Vital Signs - 8 hr 04/07/21 09:42 04/07/21 11:22 04/07/21 11:27 Temperature 98.1 F Pulse Rate 78 76 74 Respiratory Rate 18 22 21 Blood Pressure 124/60 111/57 L Pulse Oximetry 100 98 97 04/07/21 11:30 04/07/21 12:00 04/07/21 12:21 Temperature Pulse Rate 72 75 84 Respiratory Rate 19 24 15 Blood Pressure 107/54 L Pulse Oximetry 96 96 98 04/07/21 12:30 04/07/21 13:00 Temperature Pulse Rate 76 70 Respiratory Rate 21 20 Blood Pressure 117/57 L 110/52 L Pulse Oximetry 96 95 MDM - Sepsis Lab Data Result diagrams: 04/07/21 11:40 04/07/21 11:40 Labs: Lab Results 04/07/21 04/07/21 04/07/21 Range/Units 11:28 11:40 11:40 WBC 14.1 H (4.5-11.0) X10^3/uL RBC 2.93 L (4.5-5.9) X10^6/uL Hgb 7.4 L (13.5-17.5) g/dL Hct 24.6 L (41-53) % MCV 83.9 (80-100) fL MCH 25.3 L (26-34) PG MCHC 30.1 (30-36) % RDW 19.6 H (11.6-14.8) % Plt Count 370 (150-400) X10^3/uL Neut % (Auto) 85.9 H (50-75) % Lymph % (Auto) 6.2 L (25-40) % Taney % (Auto) 6.9 (3-14) % Eos % (Auto) 0.2 L (2-4) % Baso % (Auto) 0.8 (0-2) % Neut # (Auto) 56196 H (9455-9492) /uL Lymph # (Auto) 900 L (5203-5917) /uL Taney # (Auto) 1000 H (0-900) /uL Eos # (Auto) 0 (0-450) /uL Baso # (Auto) 100 (0-100) /uL Sodium 137 (137-145) mmol/L Potassium 3.4 (3.4-5.1) mmol/L Chloride 96 L (98-107) mmol/L Carbon Dioxide 34 H (22-32) mmol/L BUN 24 H (9-20) mg/dL Creatinine 1.25 (0.66-1.25) mg/dL Estimated GFR 55.7 L (>60) mL/min BUN/Creatinine Ratio 19.2 (6-22) Glucose 130 H (80-110) mg/dL Calcium 8.8 (8.4-10.2) mg/dL Magnesium 2.0 (1.6-2.3) mg/dL Total Bilirubin 0.4 (0.2-1.3) mg/dL AST 28 (17-59) IU/L ALT 25 (<50) IU/L Alkaline Phosphatase 76 (38-126) U/L Total Creatine Kinase 78 (55-170) U/L CK-MB (CK-2) TNP CK-MB (CK-2) Rel Index TNP Troponin I < 0.012 (0.01-0.034) ng/mL NT-Pro-B Natriuret Pep (<450) pg/mL Total Protein 6.3 (6.3-8.2) g/dL Albumin 3.7 (3.5-5.0) g/dL Globulin 2.6 (1.7-4.1) g/dL Albumin/Globulin Ratio 1.4 (1.0-2.8) Lipase 85 (23-300) U/L SARS-CoV-2 (PCR) Negative (Negative) 04/07/21 Range/Units 11:40 WBC (4.5-11.0) X10^3/uL RBC (4.5-5.9) X10^6/uL Hgb (13.5-17.5) g/dL Hct (41-53) % MCV (80-100) fL MCH (26-34) PG MCHC (30-36) % RDW (11.6-14.8) % Plt Count (150-400) X10^3/uL Neut % (Auto) (50-75) % Lymph % (Auto) (25-40) % Taney % (Auto) (3-14) % Eos % (Auto) (2-4) % Baso % (Auto) (0-2) % Neut # (Auto) (8765-8474) /uL Lymph # (Auto) (5210-2804) /uL Taney # (Auto) (0-900) /uL Eos # (Auto) (0-450) /uL Baso # (Auto) (0-100) /uL Sodium (137-145) mmol/L Potassium (3.4-5.1) mmol/L Chloride (98-107) mmol/L Carbon Dioxide (22-32) mmol/L BUN (9-20) mg/dL Creatinine (0.66-1.25) mg/dL Estimated GFR (>60) mL/min BUN/Creatinine Ratio (6-22) Glucose (80-110) mg/dL Calcium (8.4-10.2) mg/dL Magnesium (1.6-2.3) mg/dL Total Bilirubin (0.2-1.3) mg/dL AST (17-59) IU/L ALT (<50) IU/L Alkaline Phosphatase (38-126) U/L Total Creatine Kinase (55-170) U/L CK-MB (CK-2) CK-MB (CK-2) Rel Index Troponin I (0.01-0.034) ng/mL NT-Pro-B Natriuret Pep 3450 H (<450) pg/mL Total Protein (6.3-8.2) g/dL Albumin (3.5-5.0) g/dL Globulin (1.7-4.1) g/dL Albumin/Globulin Ratio (1.0-2.8) Lipase (23-300) U/L SARS-CoV-2 (PCR) (Negative) Imaging Data Chest x-ray: Radiologist's Impression: [address] [id number] ReportSigned Patient: Ramon Mosquera EMR#: [id number]: 2Acct:[id number]/Sex: 81 / MDate of Service: 04/07/21Loc: EDAccession Number: [id number] Procedure: XR chest 1V Ordering Provider: Winnie Shultz D.O. PROCEDURE: XR CHEST 1V INDICATIONS: chest pain TECHNIQUE: One view of the chest was acquired. COMPARISON: [facility], CT, CT ANGIO CHEST PE PROTOCOL, 01/08/2021, 19:30. [facility], CR, XR CHEST 1V, 04/01/2021, 12:19. [facility], CR, XR CHEST 2V, 03/09/2021, 16:50. FINDINGS: Surgical changes and devices: None. Lungs and pleura: Mild streaky opacity at the left lung base, similar to prior exam. Emphysematous change. No pleural effusions or pneumothorax. Mediastinum: Mediastinal contours appear normal. Heart size is normal. Bones and chest wall: No suspicious bony lesions. Overlying soft tissues appear unremarkable. IMPRESSION: Mild streaky opacity at the left lung base. Likely atelectasis or scarring. Emphysematous change. Dictated by: Dean Peters M.D. on 04/07/2021 at 11:47 Approved by: Dean Peters M.D. on 04/07/2021 at 11:51 ECG Data Interpretation: Patient does not have a P-wave with every QRS but does appear fairly regular. Rate of 74 QRS 80 QTC of 419. No ST elevation depression noted. Patient has EKG from 04/01/2021 which appears similar. MDM Narrative Medical decision making narrative: This is a 81-year-old male who comes to the emergency department for concern of difficulty with breathing/shortness of breath. Patient himself does not have much complaint by his daughters concerned. Patient has continued swelling of his lower extremities and yesterday family noted some blood on the bathroom floor but do not know where it came from. Patient's baseline O2 is 3 L nasal cannula that he has not required increased use. Patient was seen here and was on steroids for COPD exacerbation. Today chest x-ray shows possible pneumonia without elevation in his white count patient was started on oral antibiotics. No source of bleeding was found including on rectal exam, or skin exam or genital exam. Was continued secondary to his CHF. Return precautions were discussed. Discharge Plan Departure Patient Disposition: Home Clinical Impression: Pneumonia, CHF (congestive heart failure), COPD (chronic obstructive pulmonary disease) Instructions: DI for Pneumonia -- Adult Activity Restrictions/Additional Instructions: Follow-up with your physician for recheck in the next week. Please return for any new or worsening symptoms. Take antibiotics until completely gone. Continue to use your inhalers and albuterol every 4 hours as needed. Continue your Lasix as prescribed. Please return for fevers, lightheadedness or passing out, worsening shortness of breath, persistent vomiting, black or bloody stools or other new or concerning symptoms. Prescriptions: New doxycycline hyclate 100 mg tablet 100 mg PO BID Qty: 20 RF: 0 prednisone 20 mg tablet 20 mg PO DAILY Qty: 5 RF: 0 No Action ferrous sulfate 324 mg (65 mg iron) tablet,delayed release (DR/EC) 324 mg PO BID Qty: 60 RF: 0 aspirin 81 mg tablet,delayed release (DR/EC) 81 mg PO DAILY Qty: 90 RF: 3 diltiazem HCl [Cardizem CD] 240 mg capsule,extended release 24hr 240 mg PO DAILY Qty: 90 RF: 1 furosemide 20 mg tablet 20 mg PO BID Qty: 180 RF: 2 prednisone 10 mg tablet 10 mg PO DAILY Qty: 90 RF: 1 omeprazole 20 mg capsule,delayed release(DR/EC) 20 mg PO BID Qty: 90 RF: 1 albuterol sulfate 90 mcg/actuation HFA aerosol inhaler 2 puff INHALATION Q4-6H PRN (Reason: Shortness Of Breath) Qty: 18 RF: 6 apixaban 5 mg tablet 5 mg PO BID Qty: 180 RF: 1 digoxin 125 mcg (0.125 mg) tablet 125 mcg PO DAILY Qty: 90 RF: 1 fluticasone propion-salmeterol [Advair Diskus] 500-50 mcg/dose blister with device 1 inh INHALATION BID Qty: 120 RF: 6 Combivent Respimat 20-100 mcg/actuation mist 1 puff INHALATION QID Qty: 12 RF: 2 lisinopril 10 mg tablet 10 mg PO DAILY Qty: 90 RF: 1 atorvastatin 10 mg tablet 10 mg PO BEDTIME Qty: 90 RF: 1 ipratropium-albuterol 0.5 mg-3 mg(2.5 mg base)/3 mL solution for nebulization 3 ml inhalation Q4-6H MDD 6 times per day PRN (Reason: shortness of breath) Qty: 540 RF: 6 nicotine 21 mg/24 hr patch 24 hour 1 patch transdermal DAILY Qty: 28 RF: 1 (DME) Compact Compressor Nebulizer Misc See Rx Instructions .ROUTE .MEDSUPPLY Qty: 1 RF: 0 furosemide [Lasix] 40 mg tablet 40 mg PO BID Qty: 8 RF: 0 Referrals: Jose Luis Hudson, [Primary Care Provider] -
[2021-04-07 11:48] LABS: Add Manual Diff / Slide Review NO; Basophils Absolute Auto 100 /uL (0-100); Basophils Percent Auto 0.8 % (0-2); Eosinophils Absolute Auto 0 /uL (0-450); Eosinophils Percent Auto 0.2 % (2-4); Hematocrit 24.6 % (41-53); Hemoglobin 7.4 g/dL (13.5-17.5); Lymphocytes Absolute Auto 900 /uL (1100-4500); Lymphocytes Percent Auto 6.2 % (25-40); Mean Corpuscular HGB Conc 30.1 % (30-36); Mean Corpuscular Hemoglobin 25.3 PG (26-34); Mean Corpuscular Volume 83.9 fL (80-100); Monocytes Absolute Auto 1000 /uL (0-900); Monocytes Percent Auto 6.9 % (3-14); Neutrophils Absolute Auto 12100 /uL (1500-7000); Neutrophils Percent Auto 85.9 % (50-75); Platelet Count 370 X10^3/uL (150-400); Red Blood Cell Count 2.93 X10^6/uL (4.5-5.9); Red Cell Distribution Width 19.6 % (11.6-14.8); White Blood Cell Count 14.1 X10^3/uL (4.5-11.0)
[2021-04-07 12:01] LABS: Alanine Aminotransferase 25 IU/L (<50); Albumin 3.7 g/dL (3.5-5.0); Albumin Globulin Ratio 1.4 (1.0-2.8); Alkaline Phosphatase 76 U/L (38-126); Aspartate Aminotransferase 28 IU/L (17-59); BUN Creatinine Ratio 19.2 (6-22); Bilirubin Total 0.4 mg/dL (0.2-1.3); Blood Urea Nitrogen 24 mg/dL (9-20); Calcium 8.8 mg/dL (8.4-10.2); Carbon Dioxide 34 mmol/L (22-32); Chloride 96 mmol/L (98-107); Creatine Kinase 78 U/L (55-170); Estimated Glomerular Filt Rate 55.7 mL/min (>60); Globulin 2.6 g/dL (1.7-4.1); Glucose 130 mg/dL (80-110); HEMOLYSIS < 15 (0-50); Lipase 85 U/L (23-300); Potassium 3.4 mmol/L (3.4-5.1); Sodium 137 mmol/L (137-145); Total Protein 6.3 g/dL (6.3-8.2)
[2021-04-07 12:06] LABS: COVID19 -Nasal RAPID Negative (Negative)
[2021-04-07 12:10] LABS: NT-proBNP (BNP-Adult 18+) 3450 pg/mL (<450)
[2021-04-07 12:12] LABS: Troponin I < 0.012 ng/mL (0.01-0.034)
[2021-04-07] MEDS: ALBUTEROL/IPRATROPIUM 3 ML AMPUL INH (12:12)
[2021-04-07] MEDS: methylPREDNISolone 125 MG/2 ML VIAL IV (13:39)
== END 2021-04-07 14:17 | disposition home or self-care (01) ==
PROVIDERS: Emergency Provider Emergency Medicine; PCP Family Medicine
DX: J18.9 Pneumonia, unspecified organism (principal); I50.9 Heart failure, unspecified; J44.9 Chronic obstructive pulmonary disease, unspecified; I07.1 Rheumatic tricuspid insufficiency; I77.89 Other specified disorders of arteries and arterioles; I48.91 Unspecified atrial fibrillation; F17.210 Nicotine dependence, cigarettes, uncomplicated; Z79.01 Long term (current) use of anticoagulants; Z20.822 Contact with and (suspected) exposure to COVID-19
CPT/HCPCS: 36415; 71045; 80053; 82550; 83690; 83735; 83880; 84484; 85025; 87635; 93005; 93306; 94640; 96374; 99284; 99285; C9803; J2930

== ENCOUNTER 2021-04-20 09:11 | Emergency (ER) | payer MEDICARE, OTHER, SELFPAY ==
[2021-01-08 22:19] VITALS: BMI 24.7
[2021-04-20 09:21] VITALS: BP 147/83; PULSE 78; RESP 24; TEMP 36.7; O2SAT 96
--- NOTE | 2021-04-20 09:40 | ED_ITS ---
HPI - SOB/Dyspnea General Chief Complaint: Urogenital-Male Stated Complaint: blood in urine Time Seen by Provider: 04/20/21 09:31 Source: patient and other Mode of arrival: Wheelchair Limitations: no limitations History of Present Illness HPI Narrative: Patient is a 81-year-old male with history of COPD on home oxy gen, memory impairment, off and on diuretics previous echocardiogram 04/07/2021 shows an EF of 60-65%, presenting today with variety of complaints brought in by his daughters. They state he has been coughing up blood and they have noticed blood in his urine as well. They state over the last couple of weeks he has had increased confusion. He was seen and evaluated in the emergency department on 04/07/2021 diagnosed with pneumonia started on doxycycline. Better. He is afebrile. He has not needed any increased oxygen. The daughters have shown me pictures of hemoptysis and they brought in a water bottle filled with urine and there are trace amounts of blood in it. Related Data Previous Rx's Medication Instructions Recorded atorvastatin 10 mg tablet 10 mg PO BEDTIME #90 tab 10/15/20 fluticasone 500 mcg-salmeterol 50 1 inh INHALATION BID #120 ea 10/15/20 mcg/dose blistr powdr for inhalation (Advair Diskus) ipratropium 0.5 mg-albuterol 3 mg 3 ml INHALATION Q4-6H PRN #540 ml 10/15/20 (2.5 mg base)/3 mL nebulization MDD 6 times per day soln ipratropium 20 mcg-albuterol 100 1 puff INHALATION QID #12 g 10/15/20 mcg/actuation mist for inhalation (Combivent Respimat) lisinopril 10 mg tablet 10 mg PO DAILY #90 tab 10/15/20 nebulizers (Compact Compressor #1 ea 10/15/20 Nebulizer) nicotine 21 mg/24 hr daily 1 patch TRANSDERMAL DAILY #28 ea 10/15/20 transdermal patch apixaban 5 mg tablet 5 mg PO BID #180 tab 02/10/21 digoxin 125 mcg (0.125 mg) tablet 125 mcg PO DAILY #90 tab 02/10/21 ferrous sulfate 324 mg (65 mg 324 mg PO BID #60 tab 02/25/21 iron) tablet,delayed release aspirin 81 mg tablet,delayed 81 mg PO DAILY #90 tab 03/04/21 release diltiazem HCl 240 mg 240 mg PO DAILY #90 cap 03/09/21 capsule,extended release 24 hr (Cardizem CD) furosemide 20 mg tablet 20 mg PO BID #180 tab 03/13/21 albuterol sulfate 90 mcg/actuation 2 puff INHALATION Q4-6H PRN #18 g 03/16/21 aerosol inhaler omeprazole 20 mg capsule,delayed 20 mg PO BID #90 cap 03/16/21 release furosemide 40 mg tablet (Lasix) 40 mg PO BID #8 tab 04/01/21 doxycycline hyclate 100 mg tablet 100 mg PO BID #20 tab 04/07/21 prednisone 20 mg tablet 20 mg PO DAILY #5 tab 04/07/21 Allergies Allergy/AdvReac Type Severity Reaction Status Date / Time No Known Drug Allergies Allergy Verified 04/20/21 09:23 Review of Systems Review of Systems ROS Unobtainable: All systems reviewed & are unremarkable except as noted in HPI and below Constitutional Constitutional: Denies chills and Denies frequent falls ENT Ears, Nose, Mouth, and Throat: Denies hoarseness Cardiovascular Cardiovascular: Denies chest pain, Reports edema, Reports leg edema and Reports dyspnea on exertion Respiratory Respiratory: Reports hemoptysis and Reports dyspnea on exertion Gastrointestinal Gastrointestinal: Denies abdominal pain, Denies nausea, Denies vomiting and Denies hematemesis Genitourinary Genitourinary: Reports hematuria Musculoskeletal Musculoskeletal: Denies myalgias Integumentary/Breasts Skin/Breast: Denies rash Neurologic Neurologic: Denies frequent falls and Reports memory loss Psychiatric Psychiatric: Reports memory loss Patient History Medical History Aneurysm Chronic cough COPD (chronic obstructive pulmonary disease) Dyspepsia Hearing loss History of emphysema Oxygen dependent Sleep apnea Surgical History History of bladder surgery Family History (Updated 01/09/21 @ 03:28 by BOB Ni) Father No significant medical problems Mother Medical history unknown Social History household members: children Smoking Status: Former smoker Tobacco: How many years used: 30 Smokeless tobacco user: chewing tobacco (former ) quit status: not considering quitting (Daughter is weaning pt off ) alcohol intake: former substance use type: does not use Smoking Status: Former smoker tobacco type: cigarettes alcohol intake frequency: 0-2 drinks per day Substance Use Type: does not use Exam Initial Vital Signs Initial Vital Signs: Vital Signs Temperature 98.1 F 04/20/21 09:21 Pulse Rate 78 04/20/21 09:21 Respiratory Rate 24 04/20/21 09:21 Blood Pressure 147/83 H 04/20/21 09:21 Pulse Oximetry 96 04/20/21 09:21 GENERAL: Alert 81-year-old male on oxygen audible wheezing and in no acute dist ress. HEENT: Head atraumatic,EOMI, pupils reactive, face symmetric, moist mucous membranes CARDIOVASCULAR: Regular rate and rhythm without murmurs, rubs or gallops. RESPIRATORY: Coarse breath sounds bilaterally no respiratory distress ABDOMEN: Soft, nontender. Normoactive bowel sounds all 4 quadrants. No guarding or rebound. EXTREMITIES: Normal range of motion, no clubbing. Bilateral pitting edema left more than right Neurovascularly intact NEUROLOGICAL: Alert and oriented x2. SKIN: Warm, dry, no laceration, no petechiae, no rashes or lesions. Course Orders Ordered: ED Orders 04/20/21 10:35 Urinalysis and Microscopic Stat 04/20/21 10:52 Complete Blood Count AUTO DIFF Stat Comprehensive Metabolic Panel Stat Lactate (Lactic Acid) Stat NT-proBNP (BNP-Adult 18+) Stat Procalcitonin Stat Troponin & CK Cardiac Panel Stat Discontinued Medications Furosemide (Furosemide 40 Mg/4 Ml Vial) 40 mg IV NOW ONE Stop: 04/20/21 11:59 Last Admin: 04/20/21 12:05 Dose: 40 mg Documented by: CTRJOSE Vital Signs Vital signs: Vital Signs - 8 hr 04/20/21 11:30 04/20/21 12:00 04/20/21 12:30 Pulse Rate 79 86 74 Blood Pressure 115/56 L Pulse Oximetry 92 94 93 MDM - SOB/Dyspnea Lab Data Result diagrams: 04/20/21 10:52 04/20/21 10:52 Labs: Lab Results 04/20/21 04/20/21 04/20/21 Range/Units 10:35 10:52 10:52 WBC 10.1 (4.5-11.0) X10^3/uL RBC 3.00 L (4.5-5.9) X10^6/uL Hgb 7.4 L (13.5-17.5) g/dL Hct 24.6 L (41-53) % MCV 81.9 (80-100) fL MCH 24.5 L (26-34) PG MCHC 30.0 (30-36) % RDW 19.8 H (11.6-14.8) % Plt Count 360 (150-400) X10^3/uL Neut % (Auto) 75.3 H (50-75) % Lymph % (Auto) 11.7 L (25-40) % [place] % (Auto) 10.3 (3-14) % Eos % (Auto) 2.0 (2-4) % Baso % (Auto) 0.7 (0-2) % Neut # (Auto) 7600 H (6888-2523) /uL Lymph # (Auto) 1200 (5393-5404) /uL [place] # (Auto) 1000 H (0-900) /uL Eos # (Auto) 200 (0-450) /uL Baso # (Auto) 100 (0-100) /uL Sodium 136 L (137-145) mmol/L Potassium 3.9 (3.4-5.1) mmol/L Chloride 99 (98-107) mmol/L Carbon Dioxide 32 (22-32) mmol/L BUN 15 (9-20) mg/dL Creatinine 1.37 H (0.66-1.25) mg/dL Estimated GFR 50.1 L (>60) mL/min BUN/Creatinine Ratio 10.9 (6-22) Glucose 99 (80-110) mg/dL Lactate (0.7-2.1) mmol/L Calcium 8.7 (8.4-10.2) mg/dL Total Bilirubin 0.3 (0.2-1.3) mg/dL AST 24 (17-59) IU/L ALT 22 (<50) IU/L Alkaline Phosphatase 74 (38-126) U/L Total Creatine Kinase 67 (55-170) U/L CK-MB (CK-2) TNP CK-MB (CK-2) Rel Index TNP Troponin I < 0.012 (0.01-0.034) ng/mL NT-Pro-B Natriuret Pep 2410 H (<450) pg/mL Total Protein 6.2 L (6.3-8.2) g/dL Albumin 3.4 L (3.5-5.0) g/dL Globulin 2.8 (1.7-4.1) g/dL Albumin/Globulin Ratio 1.2 (1.0-2.8) Procalcitonin 0.16 (<0.5) ng/mL Urine Color Yellow Urine Appearance Clear Urine pH 7.0 (4.5-8.0) Ur Specific [place] 1.010 (1.000-1.035) Urine Protein Negative (Negative) Urine Glucose (UA) Negative (Negative) g/dL Urine Ketones Negative (NEGATIVE) Urine Occult Blood Negative (Negative) Urine Nitrate Negative (Negative) Urine Bilirubin Negative (NEGATIVE) Urine Urobilinogen 0.2 (0.2) E.U./dL Ur Leukocyte Esterase Negative (NEGATIVE) Urine RBC None seen (0-5/HPF) Urine WBC None seen (0-5/HPF) Urine Bacteria None seen (None) Ur Culture Indicated? Cult not indicated Micro UA Comment Microscopic normal 04/20/21 Range/Units 10:52 WBC (4.5-11.0) X10^3/uL RBC (4.5-5.9) X10^6/uL Hgb (13.5-17.5) g/dL Hct (41-53) % MCV (80-100) fL MCH (26-34) PG MCHC (30-36) % RDW (11.6-14.8) % Plt Count (150-400) X10^3/uL Neut % (Auto) (50-75) % Lymph % (Auto) (25-40) % [place] % (Auto) (3-14) % Eos % (Auto) (2-4) % Baso % (Auto) (0-2) % Neut # (Auto) (2343-8000) /uL Lymph # (Auto) (7726-8944) /uL [place] # (Auto) (0-900) /uL Eos # (Auto) (0-450) /uL Baso # (Auto) (0-100) /uL Sodium (137-145) mmol/L Potassium (3.4-5.1) mmol/L Chloride (98-107) mmol/L Carbon Dioxide (22-32) mmol/L BUN (9-20) mg/dL Creatinine (0.66-1.25) mg/dL Estimated GFR (>60) mL/min BUN/Creatinine Ratio (6-22) Glucose (80-110) mg/dL Lactate 2.2 H (0.7-2.1) mmol/L Calcium (8.4-10.2) mg/dL Total Bilirubin (0.2-1.3) mg/dL AST (17-59) IU/L ALT (<50) IU/L Alkaline Phosphatase (38-126) U/L Total Creatine Kinase (55-170) U/L CK-MB (CK-2) CK-MB (CK-2) Rel Index Troponin I (0.01-0.034) ng/mL NT-Pro-B Natriuret Pep (<450) pg/mL Total Protein (6.3-8.2) g/dL Albumin (3.5-5.0) g/dL Globulin (1.7-4.1) g/dL Albumin/Globulin Ratio (1.0-2.8) Procalcitonin (<0.5) ng/mL Urine Color Urine Appearance Urine pH (4.5-8.0) Ur Specific [place] (1.000-1.035) Urine Protein (Negative) Urine Glucose (UA) (Negative) g/dL Urine Ketones (NEGATIVE) Urine Occult Blood (Negative) Urine Nitrate (Negative) Urine Bilirubin (NEGATIVE) Urine Urobilinogen (0.2) E.U./dL Ur Leukocyte Esterase (NEGATIVE) Urine RBC (0-5/HPF) Urine WBC (0-5/HPF) Urine Bacteria (None) Ur Culture Indicated? Micro UA Comment Imaging Data Chest x-ray: Radiologist's Impression: PROCEDURE: XR CHEST 1V INDICATIONS: sob TECHNIQUE: One view of the chest was acquired. COMPARISON: [facility], , XR CHEST 1V, 04/07/2021, 11:19. FINDINGS: Surgical changes and devices: None. Lungs and pleura: Left basilar scarring versus recurrent atelectasis is stable. No pleural effusions or pneumothorax. Mediastinum: Mediastinal contours appear normal. Heart size is normal. Bones and chest wall: No suspicious bony lesions. Overlying soft tissues appear unremarkable. IMPRESSION: No acute cardiopulmonary disease process. Dictated by: Ranjana Cristobal MD, PhD on 04/20/2021 at 10:18 Approved by: Ranjana Cristobal MD, PhD on 04/20/2021 at 10:18 ECG Data Interpretation: Atrial fibrillation rate [address] changes similar to previous EKGs MDM Narrative Medical decision making narrative: The patient really has no complaints but does have some memory loss and not the best, historian. The patient is anemic but hemoglobin hematocrit are essentially the same as they were 2 weeks ago. At this time he has no breathing issues his urine does not show any hematuria. No sign of infection. The at this time recommend outpatient follow-up of his anemia it sounds like they are already working on it and he is taking iron twice a day. I have explained warning signs to caregivers when to return to the emergency department Discharge Plan Departure Patient Disposition: Home Clinical Impression: Anemia Qualifiers: Anemia type: unspecified type Qualified Code(s): D64.9 - Anemia, unspecified Instructions: Anemia Activity Restrictions/Additional Instructions: *You have been diagnosed with anemia *What to do: At this time blood work is overall reassuring. You do have anemia which does seem stable at this time. Does not seem significantly fluid overloaded. No blood in urine identified in the emergency department. No infection found. Please follow-up with primary care provider in regards to anemia *Continue to take medications as directed *Follow up with your primary care provider in 2-3 days *Return to ER if you should have dizziness lightheadedness passing out, shortness of breath, significant blood clots in urine or bloody stool or any new, worsening or concerning symptoms Prescriptions: No Action ferrous sulfate 324 mg (65 mg iron) tablet,delayed release (DR/EC) 324 mg PO BID Qty: 60 RF: 0 aspirin 81 mg tablet,delayed release (DR/EC) 81 mg PO DAILY Qty: 90 RF: 3 diltiazem HCl [Cardizem CD] 240 mg capsule,extended release 24hr 240 mg PO DAILY Qty: 90 RF: 1 furosemide 20 mg tablet 20 mg PO BID Qty: 180 RF: 2 omeprazole 20 mg capsule,delayed release(DR/EC) 20 mg PO BID Qty: 90 RF: 1 albuterol sulfate 90 mcg/actuation HFA aerosol inhaler 2 puff INHALATION Q4-6H PRN (Reason: Shortness Of Breath) Qty: 18 RF: 6 apixaban 5 mg tablet 5 mg PO BID Qty: 180 RF: 1 digoxin 125 mcg (0.125 mg) tablet 125 mcg PO DAILY Qty: 90 RF: 1 fluticasone propion-salmeterol [Advair Diskus] 500-50 mcg/dose blister with device 1 inh INHALATION BID Qty: 120 RF: 6 Combivent Respimat 20-100 mcg/actuation mist 1 puff INHALATION QID Qty: 12 RF: 2 lisinopril 10 mg tablet 10 mg PO DAILY Qty: 90 RF: 1 atorvastatin 10 mg tablet 10 mg PO BEDTIME Qty: 90 RF: 1 ipratropium-albuterol 0.5 mg-3 mg(2.5 mg base)/3 mL solution for nebulization 3 ml inhalation Q4-6H MDD 6 times per day PRN (Reason: shortness of breath) Qty: 540 RF: 6 nicotine 21 mg/24 hr patch 24 hour 1 patch transdermal DAILY Qty: 28 RF: 1 (DME) Compact Compressor Nebulizer Misc See Rx Instructions .ROUTE .MEDSUPPLY Qty: 1 RF: 0 doxycycline hyclate 100 mg tablet 100 mg PO BID Qty: 20 RF: 0 prednisone 20 mg tablet 20 mg PO DAILY Qty: 5 RF: 0 furosemide [Lasix] 40 mg tablet 40 mg PO BID Qty: 8 RF: 0 Referrals: Jose Luis Hudson, [Primary Care Provider] -
--- NOTE | 2021-04-20 09:49 | DI.RAD.S_ITS ---
PROCEDURE: XR CHEST 1V INDICATIONS: sob TECHNIQUE: One view of the chest was acquired. COMPARISON: [facility], [place], XR CHEST 1V, 04/07/2021, 11:19. FINDINGS: Surgical changes and devices: None. Lungs and pleura: Left basilar scarring versus recurrent atelectasis is stable. No pleural effusions or pneumothorax. Mediastinum: Mediastinal contours appear normal. Heart size is normal. Bones and chest wall: No suspicious bony lesions. Overlying soft tissues appear unremarkable. IMPRESSION: No acute cardiopulmonary disease process. Dictated by: Ranjana Cristobal MD, PhD on 04/20/2021 at 10:18 Approved by: Rajnana Cristobal MD, PhD on 04/20/2021 at 10:18
[2021-04-20 11:12] LABS: Bacteria Urine None Seen; RBC Urine None Seen (0-5/HPF); WBC Urine None Seen (0-5/HPF)
[2021-04-20 11:13] VITALS: PULSE 80; RESP 25; O2SAT 93
[2021-04-20 11:13] LABS: Add Manual Diff / Slide Review NO; Basophils Absolute Auto 100 /uL (0-100); Basophils Percent Auto 0.7 % (0-2); Eosinophils Absolute Auto 200 /uL (0-450); Hematocrit 24.6 % (41-53); Hemoglobin 7.4 g/dL (13.5-17.5); Lymphocytes Absolute Auto 1200 /uL (1100-4500); Lymphocytes Percent Auto 11.7 % (25-40); Mean Corpuscular Hemoglobin 24.5 PG (26-34); Mean Corpuscular Volume 81.9 fL (80-100); Monocytes Absolute Auto 1000 /uL (0-900); Monocytes Percent Auto 10.3 % (3-14); Neutrophils Absolute Auto 7600 /uL (1500-7000); Neutrophils Percent Auto 75.3 % (50-75); Platelet Count 360 X10^3/uL (150-400); Red Cell Distribution Width 19.8 % (11.6-14.8); White Blood Cell Count 10.1 X10^3/uL (4.5-11.0)
[2021-04-20 11:14] LABS: Appearance Urine UA CLEAR; Bilirubin Urine UA NEGATIVE (NEGATIVE); Color Urine UA YELLOW; Glucose Urine UA NEGATIVE (Negative); Ketones Urine UA NEGATIVE (NEGATIVE); Leukocyte Esterase Urine UA NEGATIVE (NEGATIVE); Nitrite Urine UA NEGATIVE (Negative); Occult Blood Urine UA NEGATIVE (Negative); Protein Urine UA NEGATIVE (Negative); Urobilinogen Urine UA 0.2 E.U./dL (0.2)
[2021-04-20 11:17] LABS: Culture Indicated Urine Cult Not Indicated; Urine Comments Microscopic Normal
[2021-04-20 11:23] LABS: Lactate (Lactic Acid) 2.2 mmol/L (0.7-2.1)
[2021-04-20 11:24] LABS: Alanine Aminotransferase 22 IU/L (<50); Albumin 3.4 g/dL (3.5-5.0); Albumin Globulin Ratio 1.2 (1.0-2.8); Alkaline Phosphatase 74 U/L (38-126); Aspartate Aminotransferase 24 IU/L (17-59); BUN Creatinine Ratio 10.9 (6-22); Bilirubin Total 0.3 mg/dL (0.2-1.3); Blood Urea Nitrogen 15 mg/dL (9-20); Calcium 8.7 mg/dL (8.4-10.2); Carbon Dioxide 32 mmol/L (22-32); Chloride 99 mmol/L (98-107); Creatine Kinase 67 U/L (55-170); Estimated Glomerular Filt Rate 50.1 mL/min (>60); Globulin 2.8 g/dL (1.7-4.1); Glucose 99 mg/dL (80-110); HEMOLYSIS < 15 (0-50); Potassium 3.9 mmol/L (3.4-5.1); Sodium 136 mmol/L (137-145); Total Protein 6.2 g/dL (6.3-8.2)
[2021-04-20 11:30] VITALS: PULSE 79; O2SAT 92
[2021-04-20 11:36] LABS: NT-proBNP (BNP-Adult 18+) 2410 pg/mL (<450); Troponin I < 0.012 ng/mL (0.01-0.034)
[2021-04-20 11:40] LABS: Procalcitonin 0.16 ng/mL (<0.5)
[2021-04-20 12:00] VITALS: PULSE 86; O2SAT 94
[2021-04-20] MEDS: FUROSEMIDE 40 MG/4 ML VIAL IV (12:05)
[2021-04-20 12:30] VITALS: BP 115/56; PULSE 74; O2SAT 93
[2021-04-20 13:10] LABS: Reflexed Lactate in 2 Hours Y
== END 2021-04-20 13:12 | disposition home or self-care (01) ==
PROVIDERS: Emergency Provider Emergency Medicine; PCP Family Medicine
DX: D64.9 Anemia, unspecified (principal); R06.02 Shortness of breath; R41.3 Other amnesia
CPT/HCPCS: 36415; 71045; 80053; 81001; 82550; 83605; 83880; 84145; 84484; 85025; 93005; 93010; 96374; 99284; J1940

== ENCOUNTER 2021-04-25 12:30 | Emergency (ER) | payer MEDICARE, OTHER, SELFPAY ==
[2021-01-08 22:19] VITALS: BMI 24.7
[2021-04-25] VITALS (9 sets, daily range): BP systolic 109–120; BP diastolic 53–61; PULSE 73–99; RESP 18–28; TEMP 37.1; O2SAT 92–99; BMI 30.2
--- NOTE | 2021-04-25 12:40 | ED.SOB ---
HPI - SOB/Dyspnea General Chief Complaint: Shortness of Breath/Dyspnea Stated Complaint: SOB and coughing up blood Time Seen by Provider: 04/25/21 12:37 History of Present Illness HPI Narrative: The patient is a 81-year-old male chronically ill with, COPD, CHF, ongoing anemia on Eliquis presenting today for the 2nd time this week for hemoptysis. Daughters state that he had quite a bit of blood come from his nose an out of his mouth. Possibly half cup. Over the last week he has had increasing shortness of breath a been quite worried about him. 1 of his daughter states that she sure he was going to wake up 1 of the mornings. Patient really has no complaints. No fever or chills. Related Data Home Medications Medication Instructions Recorded Confirmed prednisone 20 mg tablet 10 mg PO DAILY 04/25/21 04/25/21 Previous Rx's Medication Instructions Recorded atorvastatin 10 mg tablet 10 mg PO BEDTIME #90 tab 10/15/20 ipratropium 0.5 mg-albuterol 3 mg 3 ml INHALATION Q4-6H PRN #540 ml 10/15/20 (2.5 mg base)/3 mL nebulization MDD 6 times per day soln ipratropium 20 mcg-albuterol 100 1 puff INHALATION QID #12 g 10/15/20 mcg/actuation mist for inhalation (Combivent Respimat) nebulizers (Compact Compressor #1 ea 10/15/20 Nebulizer) apixaban 5 mg tablet 5 mg PO BID #180 tab 02/10/21 digoxin 125 mcg (0.125 mg) tablet 125 mcg PO DAILY #90 tab 02/10/21 ferrous sulfate 324 mg (65 mg 324 mg PO BID #60 tab 02/25/21 iron) tablet,delayed release diltiazem HCl 240 mg 240 mg PO DAILY #90 cap 03/09/21 capsule,extended release 24 hr (Cardizem CD) furosemide 20 mg tablet 20 mg PO BID #180 tab 03/13/21 albuterol sulfate 90 mcg/actuation 2 puff INHALATION Q4-6H PRN #18 g 03/16/21 aerosol inhaler omeprazole 20 mg capsule,delayed 20 mg PO BID #90 cap 03/16/21 release Allergies Allergy/AdvReac Type Severity Reaction Status Date / Time No Known Drug Allergies Allergy Verified 07/24/21 12:41 Review of Systems Review of Systems Narrative: GENERAL: Denies chills, fatigue, malaise, fever, sweats, travel HEENT: Denies sinus pain, ear pain, sore throat, difficulty swallowing, neck pain RESPIRATORY: See HPI CARDIOVASCULAR: Denies chest pain, palpitations, orthopnea, edema GASTROINTESTINAL: Denies nausea, vomiting, abdominal pain, diarrhea, constipation, melena. : Denies dysuria, frequency, incontinence, hematuria, urinary retention, flank pain. MUSCULOSKELETAL: Denies weakness, joint pain, or bony pain SKIN: No rash, no erythema, no pruritus NEUROLOGIC: Denies weakness, dizziness, headache, numbness, change in speech, confusion PSYCHIATRIC: No concerning psychosocial issues. 12 point review of systems is negative except for those stated above and HPI Patient History Medical History Aneurysm Chronic cough COPD (chronic obstructive pulmonary disease) Dyspepsia Hearing loss History of emphysema Oxygen dependent Sleep apnea Surgical History History of bladder surgery Family History Father No significant medical problems Mother Medical history unknown Social History household members: children Smoking Status: Former smoker Tobacco: How many years used: 30 Smokeless tobacco user: chewing tobacco (former ) quit status: not considering quitting (Daughter is weaning pt off ) alcohol intake: former substance use type: does not use Smoking Status: Former smoker tobacco type: cigarettes alcohol intake frequency: 0-2 drinks per day Substance Use Type: does not use Exam Initial Vital Signs Initial Vital Signs: Vital Signs Pulse Rate 83 04/25/21 12:39 Respiratory Rate 24 04/25/21 12:39 Pulse Oximetry 93 04/25/21 12:39 GENERAL: 81-year-old chronically ill-appearing male no acute distress HEENT: Head atraumatic,EOMI, pupils reactive, face symmetric, moist mucous membranes CARDIOVASCULAR: Regular rate and rhythm without murmurs, rubs or gallops. RESPIRATORY: Breath sounds equal bilaterally, no wheezes rales or rhonchi. ABDOMEN: Soft, nontender. Normoactive bowel sounds all 4 quadrants. No guarding or rebound. EXTREMITIES: Normal range of motion, no clubbing. +2 pitting edema Neurovascularly intact NEUROLOGICAL: Alert and oriented x4.Normal gait and speech. SKIN: Warm, dry, no laceration, no petechiae, no rashes or lesions. Course Orders Ordered: ED Orders 04/25/21 12:40 Complete Blood Count AUTO DIFF Stat Comprehensive Metabolic Panel Stat Lipase Stat NT-proBNP (BNP-Adult 18+) Stat Partial Thromboplastin Time Stat Prothrombin Time INR Stat Troponin & CK Cardiac Panel Stat Type and Screen Stat 04/25/21 12:41 XR chest 1V Stat 04/25/21 13:01 EKG-12 Lead Stat 04/25/21 13:30 COVID19 - ADMIT (ASSISTANT TEACHER PRIMARY swab/PCR) Stat 04/25/21 14:24 CT angio chest PE protocol Stat 04/25/21 14:41 Consult to REAMING MACHINE TENDER - Sales And Marketing Representative Stat 04/25/21 14:58 Respiratory Panel (Film Array) Stat Discontinued Medications Furosemide (Furosemide 40 Mg/4 Ml Vial) 40 mg IV NOW ONE Stop: 04/25/21 15:44 Last Admin: 04/25/21 16:05 Dose: 40 mg Documented by: CTRMARIANN Vital Signs Vital signs: Vital Signs - 8 hr 04/25/21 12:39 04/25/21 12:41 04/25/21 13:00 Temperature 98.7 F Pulse Rate 83 99 H 76 Respiratory Rate 24 27 H 26 H Blood Pressure 109/53 L 119/61 Pulse Oximetry 93 92 95 04/25/21 13:30 04/25/21 14:00 04/25/21 14:30 Temperature Pulse Rate 75 77 74 Respiratory Rate 28 H 27 H 26 H Blood Pressure 120/59 L 117/59 L 112/56 L Pulse Oximetry 96 96 97 04/25/21 15:00 04/25/21 15:30 04/25/21 16:00 Temperature Pulse Rate 78 78 73 Respiratory Rate 23 20 18 Blood Pressure 115/56 L Pulse Oximetry 94 98 99 MDM - SOB/Dyspnea Lab Data Result diagrams: 04/25/21 12:40 04/25/21 12:40 Labs: Lab Results 04/25/21 04/25/21 04/25/21 Range/Units 12:40 12:40 12:40 WBC 9.6 (4.5-11.0) X10^3/uL RBC 3.17 L (4.5-5.9) X10^6/uL Hgb 7.9 L (13.5-17.5) g/dL Hct 26.4 L (41-53) % MCV 83.3 (80-100) fL MCH 25.0 L (26-34) PG MCHC 30.0 (30-36) % RDW 21.4 H (11.6-14.8) % Plt Count 355 (150-400) X10^3/uL Neut % (Auto) 87.2 H (50-75) % Lymph % (Auto) 6.5 L (25-40) % [place] % (Auto) 5.2 (3-14) % Eos % (Auto) 0.3 L (2-4) % Baso % (Auto) 0.8 (0-2) % Neut # (Auto) 8400 H (2823-4401) /uL Lymph # (Auto) 600 L (0053-4641) /uL [place] # (Auto) 500 (0-900) /uL Eos # (Auto) 0 (0-450) /uL Baso # (Auto) 100 (0-100) /uL Platelet Estimate Adequate on smear RBC Morphology See below Polychromasia 2+ H Hypochromasia 2+ H Anisocytosis 1+ H PT 18.8 H (10.1-12.7) SECONDS INR 1.6 H (0.9-1.3) APTT 38 H (26.4-36.2) SECONDS Sodium 138 (137-145) mmol/L Potassium 3.6 (3.4-5.1) mmol/L Chloride 100 (98-107) mmol/L Carbon Dioxide 33 H (22-32) mmol/L BUN 17 (9-20) mg/dL Creatinine 1.36 H (0.66-1.25) mg/dL Estimated GFR 50.5 L (>60) mL/min BUN/Creatinine Ratio 12.5 (6-22) Glucose 127 H (80-110) mg/dL Calcium 8.6 (8.4-10.2) mg/dL Total Bilirubin 0.3 (0.2-1.3) mg/dL AST 25 (17-59) IU/L ALT 21 (<50) IU/L Alkaline Phosphatase 75 (38-126) U/L Total Creatine Kinase 57 (55-170) U/L CK-MB (CK-2) TNP CK-MB (CK-2) Rel Index TNP Troponin I < 0.012 (0.01-0.034) ng/mL NT-Pro-B Natriuret Pep 3940 H (<450) pg/mL Total Protein 6.4 (6.3-8.2) g/dL Albumin 3.5 (3.5-5.0) g/dL Globulin 2.9 (1.7-4.1) g/dL Albumin/Globulin Ratio 1.2 (1.0-2.8) Lipase 153 (23-300) U/L Chlamy pneumoniae PCR (Not Detect) Adenovirus (PCR) (Not Detect) B. pertussis DNA (PCR) (Not Detecte) B.parapertussis DNA PCR (Not Detecte) Coronavirus OC43 (PCR) (Not Detect) Coronavirus HKU1 (PCR) (Not Detect) Coronavirus 229E (PCR) (Not Detect) SARS-CoV-2 (PCR) (Negative) Coronavirus NL63 (PCR) (Not Detect) Human Metapneumovir PCR (Not Detect) Influenza Type A (PCR) (Not Detect) Influenza Type B (PCR) (Not Detect) M. pneumoniae (PCR) (Not Detect) Parainfluenza 1 (PCR) (Not Detect) Parainfluenza 2 (PCR) (Not Detect) Parainfluenza 3 (PCR) (Not Detect) Parainfluenza 4 (PCR) (Not Detect) RSV (PCR) (Not Detect) Entero/Rhino (PCR) (Not Detect) Blood Type Antibody Screen 04/25/21 04/25/21 04/25/21 Range/Units 12:40 13:30 14:58 WBC (4.5-11.0) X10^3/uL RBC (4.5-5.9) X10^6/uL Hgb (13.5-17.5) g/dL Hct (41-53) % MCV (80-100) fL MCH (26-34) PG MCHC (30-36) % RDW (11.6-14.8) % Plt Count (150-400) X10^3/uL Neut % (Auto) (50-75) % Lymph % (Auto) (25-40) % [place] % (Auto) (3-14) % Eos % (Auto) (2-4) % Baso % (Auto) (0-2) % Neut # (Auto) (3514-5232) /uL Lymph # (Auto) (0455-8988) /uL [place] # (Auto) (0-900) /uL Eos # (Auto) (0-450) /uL Baso # (Auto) (0-100) /uL Platelet Estimate RBC Morphology Polychromasia Hypochromasia Anisocytosis PT (10.1-12.7) SECONDS INR (0.9-1.3) APTT (26.4-36.2) SECONDS Sodium (137-145) mmol/L Potassium (3.4-5.1) mmol/L Chloride (98-107) mmol/L Carbon Dioxide (22-32) mmol/L BUN (9-20) mg/dL Creatinine (0.66-1.25) mg/dL Estimated GFR (>60) mL/min BUN/Creatinine Ratio (6-22) Glucose (80-110) mg/dL Calcium (8.4-10.2) mg/dL Total Bilirubin (0.2-1.3) mg/dL AST (17-59) IU/L ALT (<50) IU/L Alkaline Phosphatase (38-126) U/L Total Creatine Kinase (55-170) U/L CK-MB (CK-2) CK-MB (CK-2) Rel Index Troponin I (0.01-0.034) ng/mL NT-Pro-B Natriuret Pep (<450) pg/mL Total Protein (6.3-8.2) g/dL Albumin (3.5-5.0) g/dL Globulin (1.7-4.1) g/dL Albumin/Globulin Ratio (1.0-2.8) Lipase (23-300) U/L Chlamy pneumoniae PCR Not detected (Not Detect) Adenovirus (PCR) Not detected (Not Detect) B. pertussis DNA (PCR) Not detected (Not Detecte) B.parapertussis DNA PCR Not detected (Not Detecte) Coronavirus OC43 (PCR) Not detected (Not Detect) Coronavirus HKU1 (PCR) Not detected (Not Detect) Coronavirus 229E (PCR) Not detected (Not Detect) SARS-CoV-2 (PCR) Negative TNP (Negative) Coronavirus NL63 (PCR) Not detected (Not Detect) Human Metapneumovir PCR Not detected (Not Detect) Influenza Type A (PCR) Not detected (Not Detect) Influenza Type B (PCR) Not detected (Not Detect) M. pneumoniae (PCR) Not detected (Not Detect) Parainfluenza 1 (PCR) Not detected (Not Detect) Parainfluenza 2 (PCR) Not detected (Not Detect) Parainfluenza 3 (PCR) Not detected (Not Detect) Parainfluenza 4 (PCR) Not detected (Not Detect) RSV (PCR) Not detected (Not Detect) Entero/Rhino (PCR) Not detected (Not Detect) Blood Type A Positive Antibody Screen Negative ECG Data Interpretation: Atrial fibrillation rate [address] changes similar to previous EKG MDM Narrative Medical decision making narrative: Patient is chronically-ill anemia appears stable. Daughter states that he is not a candidate for a colonoscopy or an EGD because he is too high risk. He therefore is not a candidate for a bronchoscopy. He does look like he has a mild CHF exacerbation with elevated BNP. He is on oxygen and Lasix home. Can easily diurese at home however he has been diuresed as an outpatient multiple times and does not seem to be working I discussed case with Dr. Crowley. At this time very little to do but increase his Lasix and stop Eliquis. Further discussion with the daughter. She states that he has previously been in hospice. She thinks it might be time for him to re-evaluate hospice. At this time patient is not a candidate for colonoscopy EGD or bronchoscopy. Very little for doctors to do at this time. Social Work has been in it to help than set it up. Although patient has a lot of the information from previous admission to hospice. At this time it agrees to go home. Discharge Plan Departure Patient Disposition: Home Clinical Impression: CHF (congestive heart failure), Anemia, COPD (chronic obstructive pulmonary disease) Instructions: DI for Heart Failure Activity Restrictions/Additional Instructions: *You have been diagnosed with anemia, CHF, COPD, atrial fibrillation *What to do: At this time I think it is reasonable that you have all reach the conclusion to go back into hospice. Let us make some medication changes in order to help him feel better. Recommend limiting fluid intake to less than 2 L *Continue to take medications as directed Stop Eliquis/apixaban Lasix 40 mg twice a day for 3 days then return to usual dosing. *Follow up with your primary care provider in 2-3 days *Return to ER if you should have any new, worsening or concerning symptoms Prescriptions: No Action ferrous sulfate 324 mg (65 mg iron) tablet,delayed release (DR/EC) 324 mg PO BID Qty: 60 RF: 0 diltiazem HCl [Cardizem CD] 240 mg capsule,extended release 24hr 240 mg PO DAILY Qty: 90 RF: 1 furosemide 20 mg tablet 20 mg PO BID Qty: 180 RF: 2 omeprazole 20 mg capsule,delayed release(DR/EC) 20 mg PO BID Qty: 90 RF: 1 albuterol sulfate 90 mcg/actuation HFA aerosol inhaler 2 puff INHALATION Q4-6H PRN (Reason: Shortness Of Breath) Qty: 18 RF: 6 apixaban 5 mg tablet 5 mg PO BID Qty: 180 RF: 1 digoxin 125 mcg (0.125 mg) tablet 125 mcg PO DAILY Qty: 90 RF: 1 Combivent Respimat 20-100 mcg/actuation mist 1 puff INHALATION QID Qty: 12 RF: 2 atorvastatin 10 mg tablet 10 mg PO BEDTIME Qty: 90 RF: 1 ipratropium-albuterol 0.5 mg-3 mg(2.5 mg base)/3 mL solution for nebulization 3 ml inhalation Q4-6H MDD 6 times per day PRN (Reason: shortness of breath) Qty: 540 RF: 6 (DME) Compact Compressor Nebulizer Misc See Rx Instructions .ROUTE .MEDSUPPLY Qty: 1 RF: 0 prednisone 20 mg tablet 10 mg PO DAILY RF: 0 Referrals: Jose Luis Hudson, DO [Primary Care Provider] -
--- NOTE | 2021-04-25 12:41 | DI.RAD.S_ITS ---
PROCEDURE: XR CHEST 1V INDICATIONS: short of breath TECHNIQUE: One view of the chest was acquired. COMPARISON: [facility], CR, XR CHEST 1V, 04/01/2021, 12:19. [facility], CR, XR CHEST 1V, 04/07/2021, 11:19. [facility], CR, XR CHEST 1V, 04/20/2021, 10:03. FINDINGS: Surgical changes and devices: None. Lungs and pleura: On this semiupright portable chest examination, no large pneumothorax or large pleural effusions are seen. No focal infiltrates are seen. Mediastinum: Mediastinal contours appear normal. Heart size is normal. Bones and chest wall: No suspicious bony lesions. Age-appropriate bony degenerative changes are seen. Overlying soft tissues appear unremarkable. IMPRESSION: Portable chest within normal limits. Dictated by: Edy Rubalcava M.D. on 04/25/2021 at 11:56 Approved by: Edy Rubalcava M.D. on 04/25/2021 at 11:56
[2021-04-25 12:53] LABS: Add Manual Diff / Slide Review NO; Basophils Absolute Auto 100 /uL (0-100); Basophils Percent Auto 0.8 % (0-2); Eosinophils Absolute Auto 0 /uL (0-450); Eosinophils Percent Auto 0.3 % (2-4); Hematocrit 26.4 % (41-53); Hemoglobin 7.9 g/dL (13.5-17.5); Lymphocytes Absolute Auto 600 /uL (1100-4500); Lymphocytes Percent Auto 6.5 % (25-40); Mean Corpuscular Volume 83.3 fL (80-100); Monocytes Absolute Auto 500 /uL (0-900); Monocytes Percent Auto 5.2 % (3-14); Neutrophils Absolute Auto 8400 /uL (1500-7000); Neutrophils Percent Auto 87.2 % (50-75); Platelet Count 355 X10^3/uL (150-400); Red Blood Cell Count 3.17 X10^6/uL (4.5-5.9); Red Cell Distribution Width 21.4 % (11.6-14.8); White Blood Cell Count 9.6 X10^3/uL (4.5-11.0)
[2021-04-25 12:55] LABS: INR 1.6 (0.9-1.3); Prothrombin Time 18.8 SECONDS (10.1-12.7)
[2021-04-25 12:57] LABS: PTT Partial Thromboplastin Tim 38 SECONDS (26.4-36.2)
[2021-04-25 12:59] LABS: Alanine Aminotransferase 21 IU/L (<50); Albumin 3.5 g/dL (3.5-5.0); Albumin Globulin Ratio 1.2 (1.0-2.8); Alkaline Phosphatase 75 U/L (38-126); Aspartate Aminotransferase 25 IU/L (17-59); BUN Creatinine Ratio 12.5 (6-22); Bilirubin Total 0.3 mg/dL (0.2-1.3); Blood Urea Nitrogen 17 mg/dL (9-20); Calcium 8.6 mg/dL (8.4-10.2); Carbon Dioxide 33 mmol/L (22-32); Chloride 100 mmol/L (98-107); Creatine Kinase 57 U/L (55-170); Estimated Glomerular Filt Rate 50.5 mL/min (>60); Globulin 2.9 g/dL (1.7-4.1); Glucose 127 mg/dL (80-110); HEMOLYSIS < 15 (0-50); Lipase 153 U/L (23-300); Potassium 3.6 mmol/L (3.4-5.1); Sodium 138 mmol/L (137-145); Total Protein 6.4 g/dL (6.3-8.2)
[2021-04-25 13:11] LABS: NT-proBNP (BNP-Adult 18+) 3940 pg/mL (<450); Troponin I < 0.012 ng/mL (0.01-0.034)
--- NOTE | 2021-04-25 14:24 | DI.CT.S_ITS ---
PROCEDURE: CT ANGIO CHEST PE PROTOCOL INDICATIONS: Hemoptysis TECHNIQUE: After the administration of intravenous contrast, 2 mm thick sections acquired from the pulmonary apices to the posterior costophrenic angles. 3-dimensional maximum intensity projection (MIP) coronal and sagittal reformats were then acquired through the thorax. For radiation dose reduction, the following was used: automated exposure control, adjustment of mA and/or kV according to patient size. COMPARISON: [facility], CT, CT ANGIO CHEST PE PROTOCOL, 01/08/2021, 19:30. FINDINGS: Image quality: Excellent. Pulmonary arteries: Pulmonary arteries are normal in size, and demonstrate no intraluminal filling defects to suggest central pulmonary embolism. Lungs and pleura: Severe emphysematous change. Lower lobe bronchiectasis. Bronchial wall thickening. Mild streaky opacity at the lung bases. Mild platelike opacity at the left major fissure. No pleural effusions or pneumothorax. Central and peripheral airways are patent. Mediastinum: Heart size is normal, without pericardial effusion. Three-vessel coronary artery calcifications. No mediastinal or hilar adenopathy. Thoracic aorta is normal in caliber and enhancement. Esophagus is normal in caliber, small hiatal hernia. Bones and chest wall: No suspicious bony lesions. Mild height loss at T3, new in the interval compared to January. Ribs and thoracic spine appear intact throughout. Suspect prior right 8th rib fracture. Right thyroid nodule measuring approximately 1.3 cm, (01/22). No axillary or supraclavicular adenopathy. Abdomen: Left renal cysts. Visualized upper abdominal solid organs appear normal in the early arterial phase of enhancement. IMPRESSION: 1. No pulmonary embolism. 2. Bronchial wall thickening is suggestive of bronchitis. 3. Bibasilar airspace opacity most compatible with atelectasis or scarring. Severe emphysematous change. 4. Mild T3 compression fracture which is new compared to January 2021. 5. Right thyroid nodule measuring approximately 1.3 cm. -Consider further evaluation with dedicated thyroid ultrasound. Dictated by: Dean Peters M.D. on 04/25/2021 at 15:27 Approved by: Dean Peters M.D. on 04/25/2021 at 15:35
[2021-04-25 14:39] LABS: Anisocytosis 1+
[2021-04-25 14:40] LABS: Hypochromasia 2+; Platelet Estimate Adequate on smear; Polychromasia 2+
[2021-04-25 14:51] LABS: COVID19 - ADMIT (NP swab/PCR) Negative (Negative)
--- NOTE | 2021-04-25 15:12 | P.CONS_ITS ---
History of Present Illness Consult details Date Patient Seen: 04/25/21 Time Patient Seen: 15:12 Chief complaint: SOB and coughing up blood Reason for consult: hemoptysis, cough, weakness Narrative: Ramon Mosquera is a 81-year-old male with a past medical history COPD /emphysema With chronic respiratory failure on 3.5 L home O2, heart anne-marie lure with preserved ejection fraction, chronic atrial fibrillation on Eliquis, chronic iron deficiency anemia, KARLEY, hypertension, and prior history of bladder cancer who presented to the emergency room after an episode of reported hemoptysis according to the family. The patient himself has Alzheimer's, in currently denies complaints stating that he feels well. He denies any fevers, chills, cough, abdominal pain, nausea, vomiting, lower extremity edema. However, according to the daughter, who lives with the patient, he has had a couple of episodes of coughing up blood which the patient tries to hide from family, as well as passing a clot in his urine. He has also had worsening lethargy and weakness over the past few days, stating that he sleeps all day. the daughter notes that there was quite a bit of bright red blood that was coming out from his mouth and nose, and this is what prompted them to call EMS today and why he was brought into the emergency room for evaluation. in the emergency room, the patient's vital signs were unremarkable. He was saturating in the mid to upper 90s on 2 L. initial laboratory evaluation showed no leukocytosis, hemoglobin of 7.9 which is actually improved from 5 days ago. INR was noted to be 1.6. Chemistries were not significantly changed compared to prior lab values. Troponin was negative. ProBNP was slightly elevated compared to prior Studies. Meds Home Medications and Allergies Home Medications Medication Instructions Recorded Confirmed Type atorvastatin 10 mg tablet 10 mg PO BEDTIME #90 tab 10/15/20 04/25/21 Rx ipratropium 0.5 mg-albuterol 3 mg 3 ml INHALATION Q4-6H PRN #540 ml 10/15/20 04/25/21 Rx (2.5 mg base)/3 mL nebulization MDD 6 times per day soln ipratropium 20 mcg-albuterol 100 1 puff INHALATION QID #12 g 10/15/20 04/25/21 Rx mcg/actuation mist for inhalation (Combivent Respimat) nebulizers (Compact Compressor #1 ea 10/15/20 04/25/21 Rx Nebulizer) apixaban 5 mg tablet 5 mg PO BID #180 tab 02/10/21 04/25/21 Rx digoxin 125 mcg (0.125 mg) tablet 125 mcg PO DAILY #90 tab 02/10/21 04/25/21 Rx ferrous sulfate 324 mg (65 mg 324 mg PO BID #60 tab 02/25/21 04/25/21 Rx iron) tablet,delayed release diltiazem HCl 240 mg 240 mg PO DAILY #90 cap 03/09/21 04/25/21 Rx capsule,extended release 24 hr (Cardizem CD) furosemide 20 mg tablet 20 mg PO BID #180 tab 03/13/21 04/25/21 Rx albuterol sulfate 90 mcg/actuation 2 puff INHALATION Q4-6H PRN #18 g 03/16/21 04/25/21 Rx aerosol inhaler omeprazole 20 mg capsule,delayed 20 mg PO BID #90 cap 03/16/21 04/25/21 Rx release prednisone 20 mg tablet 10 mg PO DAILY 04/25/21 04/25/21 History Allergies Allergy/AdvReac Type Severity Reaction Status Date / Time No Known Drug Allergies Allergy Verified 04/25/21 12:41 Review of Systems Review of Systems Narrative: All other systems reviewed with the patient and are negative unless otherwise stated. Exam Vital Signs (past 8 hours): - 04/25/21 12:39 04/25/21 12:41 04/25/21 13:00 Temperature 98.7 F Pulse Rate 83 99 H 76 Respiratory Rate 24 27 H 26 H Blood Pressure 109/53 L 119/61 Pulse Oximetry 93 92 95 04/25/21 13:30 04/25/21 14:00 04/25/21 14:30 Temperature Pulse Rate 75 77 74 Respiratory Rate 28 H 27 H 26 H Blood Pressure 120/59 L 117/59 L 112/56 L Pulse Oximetry 96 96 97 Oxygen Delivery Method Room Air Oxygen Flow Rate 2 Narrative Exam Narrative: GENERAL APPEARANCE: Well developed, well nourished, Slightly obese Elderly male with a BMI of 30.2 in no acute distress. SKIN: Inspection of the skin reveals no rashes, ulcerations or petechiae. chronic venous stasis changes as noted below. HEENT: Normocephalic atraumatic, extraocular muscles are intact, oropharynx is clear and mucous membranes are moist, neck is supple without adenopathy NECK: Supple and symmetric. there was no JVD present CHEST: Normal AP diameter and normal contour without any kyphoscoliosis. LUNGS: Auscultation of the lungs revealed no wheezes, rhonchi, or rales. CARDIOVASCULAR: There was a regular rate and rhythm without any murmurs, gallops, rubs. Peripheral pulses were 2+ and symmetric. ABDOMEN: Soft and nontender without distension MUSCULOSKELETAL: There was no tenderness or effusions noted. Muscle strength and tone were normal. EXTREMITIES: No cyanosis, clubbing. There was 1 to 2+ bilateral pitting edema in his lower extremities with Mild chronic venous stasis changes NEUROLOGIC: Alert, with evident cognitive impairment and poor short-term memory. Normal affect. Strength is +5/5 in the Upper Extremities and Lower Extremities Bilaterally. Sensation to touch was normal. Objective ECG Impression: atrial fibrillation, however fairly regular rhythm so alternative may be a junctional pacemaker. Imaging Chest x-ray: My impression: No significant change compared to prior imaging, actually somewhat improved. No acute cardiopulmonary findings. Labs Result Diagrams: 04/25/21 12:40 04/25/21 12:40 Labs: Laboratory Results - last 24 hr 04/25/21 04/25/21 04/25/21 12:40 12:40 12:40 WBC 9.6 RBC 3.17 L Hgb 7.9 L Hct 26.4 L MCV 83.3 MCH 25.0 L MCHC 30.0 RDW 21.4 H Plt Count 355 Neut % (Auto) 87.2 H Lymph % (Auto) 6.5 L [place] % (Auto) 5.2 Eos % (Auto) 0.3 L Baso % (Auto) 0.8 Neut # (Auto) 8400 H Lymph # (Auto) 600 L [place] # (Auto) 500 Eos # (Auto) 0 Baso # (Auto) 100 Platelet Estimate Adequate on smear RBC Morphology See below Polychromasia 2+ H Hypochromasia 2+ H Anisocytosis 1+ H PT 18.8 H INR 1.6 H APTT 38 H Sodium 138 Potassium 3.6 Chloride 100 Carbon Dioxide 33 H BUN 17 Creatinine 1.36 H Estimated GFR 50.5 L BUN/Creatinine Ratio 12.5 Glucose 127 H Calcium 8.6 Total Bilirubin 0.3 AST 25 ALT 21 Alkaline Phosphatase 75 Total Creatine Kinase 57 CK-MB (CK-2) TNP CK-MB (CK-2) Rel Index TNP Troponin I < 0.012 NT-Pro-B Natriuret Pep 3940 H Total Protein 6.4 Albumin 3.5 Globulin 2.9 Albumin/Globulin Ratio 1.2 Lipase 153 SARS-CoV-2 (PCR) Blood Type Antibody Screen 04/25/21 04/25/21 12:40 13:30 WBC RBC Hgb Hct MCV MCH MCHC RDW Plt Count Neut % (Auto) Lymph % (Auto) [place] % (Auto) Eos % (Auto) Baso % (Auto) Neut # (Auto) Lymph # (Auto) [place] # (Auto) Eos # (Auto) Baso # (Auto) Platelet Estimate RBC Morphology Polychromasia Hypochromasia Anisocytosis PT INR APTT Sodium Potassium Chloride Carbon Dioxide BUN Creatinine Estimated GFR BUN/Creatinine Ratio Glucose Calcium Total Bilirubin AST ALT Alkaline Phosphatase Total Creatine Kinase CK-MB (CK-2) CK-MB (CK-2) Rel Index Troponin I NT-Pro-B Natriuret Pep Total Protein Albumin Globulin Albumin/Globulin Ratio Lipase SARS-CoV-2 (PCR) Negative Blood Type A Positive Antibody Screen Negative Assessment & Plan Assessment & Plan narrative: Ramon Mosquera is a 81-year-old male with a past medical history COPD /emphysema With chronic respiratory failure on 3.5 L home O2, heart failure with preserved ejection fraction, chronic atrial fibrillation on Eliquis, chronic iron deficiency anemia, KARLEY, hypertension, and prior history of bladder cancer who presented to the emergency room after an episode of rep orted hemoptysis according to the family. 1. Possible hemoptysis or epistaxis. - suspect this is actually epistaxis given chronic home O2 use. However he is certainly at risk for hemoptysis from underlying chronic lung disease. - recommend respiratory panel. Ideally he would undergo bronchoscopy however according to family he was not healthy enough for colonoscopy or EGD for further evaluation of iron deficiency anemia. - Given improved Hg would recommend cessation of apixaban and follow up as an outpatient. He also has no acute respiratory failure at this time. Would treat for COPD exacerbation with 5 days total of prednisone and azithromycin for antiinflammatory effect. - reduce O2 use at home as noted below 2. COPD with chronic respiratory failure, hypoxic with probable acute exa cerbation. - on 3.5L at home usually. In the ER he is >95% on 2L. Ideally at home this should only be used for O2 <89% given his COPD. Likely needs more for activity. Counseled family to use home pulse oximeter, which they do have and they can adjust accordingly. Would treat for possible COPD exacerbation though the patient is well appearing now. 3. acute on chronic heart failure with preserved EF - would recommend increasing home lasix dosing to 40 mg BID x3 days then return to usual dosing if improved LE edema. Family endorses 3-4 L of fluid intake daily. Counseled ideally to keep this <2 L if not <1.5 ideally. No acute respiratory component but does have some LE edema and lethargy which will likely improve with increased lasix dosing and decrease in home fluid intake. Family was couseled on appropriate fluid intake. 4. chronic iron deficiency anemia - would recommend cessation of apixaban at this time given possible hemoptysis and the episode of gross hematuria. Continue oral repletion. He has been recommended for a number of studies and given above would additionally recommend bronchoscopy and cystoscopy in addition to previously recommend EGD and colonoscopy if his bleeding continues off of apixaban therapy. 5. Gross hematuria - ideally would undergo cystoscopy, however not recommended given co- morbidities per family. May be indicative of bladder cancer as this is listed as a previous diagnosis, however the family is unaware if he had this or not. Recommend cessation of eliquis at this time as noted above. 6. Chronic atrial fibrillation - continue home medications, though as noted above would recommend cessation of apixaban at this time given bleeding. This can be revisited in the near future with PCP based on goals of care as an outpatient. 7. Chronic cognitive impairment. There is no indication for hospital admission at this time. He was previously listed as full code, however family may be interested in hospice per ER provider. Surrogate decision maker is patient's daughter. COVID-19 COVID-19 status: Result pending
--- NOTE | 2021-04-25 15:54 | CM.SWNOTE ---
Patient is a 81 year old male who was admitted to [place] ED on 04/25/21 for SOB and bleeding. Pt has [employer] and [employer] for insurance and his PCP is Dr. Jose Luis Hudson. EMR was reviewed. Per ED MD, RN CHILD consult placed due to pt's high frequency ED and hospital visits and declining health and discussion with pt and family and decision for pt to d/c home and to start Hospice services. DHIRAJ spoke to pt's Dtr [facility] [phone] and explained role and discussed above and she confirms that pt was on Hospice services 2 years ago and graduated off and therefore they are very aware of their supportive services. SW inquired about which hospice agency pt had utilized and it was [facility] as pt resides in [place] with family and this is the preference again for hospice services. SW discussed that due to it being a weekend a referral would be faxed but may be a day or two before staff is available at [facility] to get consents and start pt on services. Dtr acknowledges understanding and is comfortable with d/c home with pt and then Hospice beginning in a few days at at later date. SW faxed clinicals and referral to [facility] and left msg with intake requesting a call to Dtr as pt has memory issues. DHIRAJ updated RN and MD regarding referral and discussion. Plan: Patient to get diuresed and d/c home with family from the ED and new referral to [facility] towards getting on their service in the next few days. ALLISON Fallon
[2021-04-25] MEDS: FUROSEMIDE 40 MG/4 ML VIAL IV (16:05)
[2021-04-25 16:15] LABS: Adenovirus Not Detected (Not Detect); B. parapertussis Not Detected (Not Detecte); Bordetella pertussis Not Detected (Not Detecte); Chlamydophila pneumoniae Not Detected (Not Detect); Coronavirus 229E Not Detected (Not Detect); Coronavirus HKU1 Not Detected (Not Detect); Coronavirus NL 63 Not Detected (Not Detect); Coronavirus OC43 Not Detected (Not Detect); Human Metapneumovirus Not Detected (Not Detect); Human Rhinovirus/Enterovirus Not Detected (Not Detect); Influenza A Not Detected (Not Detect); Influenza B Not Detected (Not Detect); Mycoplasma pneumoniae Not Detected (Not Detect); Parainfluenza Virus 1 Not Detected (Not Detect); Parainfluenza Virus 2 Not Detected (Not Detect); Parainfluenza Virus 3 Not Detected (Not Detect); Parainfluenza Virus 4 Not Detected (Not Detect); Respiratory Syncytial Virus Not Detected (Not Detect)
== END 2021-04-25 16:20 | disposition home or self-care (01) ==
PROVIDERS: Emergency Provider Emergency Medicine; PCP Family Medicine
DX: I50.9 Heart failure, unspecified (principal); D64.9 Anemia, unspecified; J44.9 Chronic obstructive pulmonary disease, unspecified; Z20.822 Contact with and (suspected) exposure to COVID-19
CPT/HCPCS: 71045; 71275; 80053; 82550; 83690; 83880; 84484; 85025; 85610; 85730; 86850; 86900; 86901; 87633; 87635; 93005; 96374; 99284; 99285; C9803; J1940; Q9967

== ENCOUNTER → 2021-05-20 14:55 | Outpatient (CLI) | payer MEDICARE, OTHER, SELFPAY ==
[2021-01-08 22:19] VITALS: BMI 24.7
[2021-05-20 15:43] LABS: Add Manual Diff / Slide Review NO; Basophils Absolute Auto 100 /uL (0-100); Basophils Percent Auto 0.6 % (0-2); Eosinophils Absolute Auto 0 /uL (0-450); Eosinophils Percent Auto 0.3 % (2-4); Hematocrit 37.1 % (41-53); Hemoglobin 11.1 g/dL (13.5-17.5); Lymphocytes Absolute Auto 1400 /uL (1100-4500); Lymphocytes Percent Auto 10.4 % (25-40); Mean Corpuscular Hemoglobin 25.9 PG (26-34); Mean Corpuscular Volume 86.3 fL (80-100); Monocytes Absolute Auto 800 /uL (0-900); Neutrophils Absolute Auto 11200 /uL (1500-7000); Neutrophils Percent Auto 82.7 % (50-75); Platelet Count 312 X10^3/uL (150-400); Red Cell Distribution Width 21.6 % (11.6-14.8); White Blood Cell Count 13.6 X10^3/uL (4.5-11.0)
[2021-05-20 16:13] LABS: Alanine Aminotransferase 28 IU/L (<50); Albumin 4.1 g/dL (3.5-5.0); Albumin Globulin Ratio 1.4 (1.0-2.8); Alkaline Phosphatase 91 U/L (38-126); Aspartate Aminotransferase 26 IU/L (17-59); Bilirubin Total 0.3 mg/dL (0.2-1.3); Blood Urea Nitrogen 24 mg/dL (9-20); Calcium 8.9 mg/dL (8.4-10.2); Carbon Dioxide 29 mmol/L (22-32); Chloride 104 mmol/L (98-107); Estimated Glomerular Filt Rate 55.2 mL/min (>60); Glucose 124 mg/dL (80-110); HEMOLYSIS < 15 (0-50); Potassium 4.4 mmol/L (3.4-5.1); Sodium 142 mmol/L (137-145); Total Protein 7.1 g/dL (6.3-8.2)
[2021-05-20 16:25] LABS: Anisocytosis 1+
[2021-05-20 16:42] LABS: Thyroid Stimulating Hormone 1.62 uIU/mL (0.47-4.68)
== END ==
PROVIDERS: PCP Family Medicine; Referring Provider Family Medicine; Visit Provider Family Medicine
DX: D64.9 Anemia, unspecified (principal); I48.91 Unspecified atrial fibrillation; I50.9 Heart failure, unspecified
CPT/HCPCS: 36415; 80053; 84443; 85025